=== PATIENT | male | born 1955 | race Caucasian/White ===

== ENCOUNTER 2017-02-09 07:45 | Emergency (ER) | payer MEDICAID ==
--- NOTE | 2017-02-09 08:05 | ERPHSYRPT ---
- History of Present Illness Time Seen by Provider: 02/09/17 08:00 Source: family Exam Limitations: other (metal retardation) Patient Subjective Stated Complaint: PT HERE FOR URINARY RETENTION, PT IS DISABLED A AND UNABLE TO SPEAK. SHE STATES HE NORMALLY VOIDS EVERY HOUR AND HAS NOT VOIDED SINCE LAST NIGHT Triage Nursing Assessment: PT ALERT, NONVERBAL,MOANS OUT LOAD,ABD SOFT, DIAPER DRY Physician History: The patient is a 61-year-old male who has recently been transferred to a local care facility complaining that he did not urinate all night. The patient is nonverbal and cannot communicate. He has severe intellectual disabilities and hydrocephalus with VACCINE SPECIALIST shunt. His caregiver is concerned that he has not produced urine into his diaper all night. Otherwise the patient is his normal self. He also has a past medical history of seizures and hypertension. Timing/Duration: today Activites at Onset: none Pain Radiation: none Severity of Pain-Max: none Severity of Pain-Current: none Modifying Factors: Improves With: nothing Associated Symptoms: other (urinary retention) Prior abdominal problems: none Sexual intercourse history: non-contributory Allergies/Adverse Reactions: amoxicillin [From Augmentin] Allergy (Verified 02/09/17 07:55) cefazedone Allergy (Verified 02/09/17 07:55) clavulanic acid [From Augmentin] Allergy (Verified 02/09/17 07:55) zinc oxide Allergy (Verified 02/09/17 07:55) Home Medications: Amlodipine Besylate 10 mg [Norvasc 10 MG] 10 mg DAILY 02/09/17 [History] Lisinopril 20 mg [Zestril 20 MG] 20 mg DAILY 02/09/17 [History] Phenobarbital 20 mg/5 ml [Phenobarbital 20 mg/5 ml Elixir] 15 ml DAILY [History] Valproic Acid 250 mg/5 ml [Depakene 250 MG/5 ML Syrup] 15 ml DAILY [History] Hx Influenza Vaccination/Date Given: Yes Hx Pneumococcal Vaccination/Date Given: Yes Immunizations Up to Date: Yes - Past Medical History Pertinent Past Medical History: Yes Neurological History: Seizures Cardiac History: Hypertension Other Medical History: SHUNT IN HEAD ,ANEMIA, CONSTIPATION - Past Surgical History Other Surgical History: G TUBE - Social History Smoking Status: Never smoker Exposure to second hand smoke: No Drug Use: none Patient Lives Alone: No - Review of Systems Constitutional: No Fever, No Chills Eyes: No Symptoms Ears, Nose, & Throat: No Symptoms Respiratory: No Cough, No Dyspnea Cardiac: No Chest Pain, No Edema, No Syncope Abdominal/Gastrointestinal: No Abdominal Pain, No Nausea, No Vomiting, No Diarrhea Genitourinary Symptoms: Urinary Retention Musculoskeletal: No Back Pain, No Neck Pain Skin: No Rash Neurological: No Dizziness, No Focal Weakness, No Sensory Changes Psychological: No Symptoms Endocrine: No Symptoms Hematologic/Lymphatic: No Symptoms Immunological/Allergic: No Symptoms All Other Systems: Reviewed and Negative - Nursing Vital Signs Nursing Vital Signs: Initial Vital Signs Temperature 97.0 F 02/09/17 07:47 Pulse Rate 83 02/09/17 07:47 Respiratory Rate 16 02/09/17 07:47 Blood Pressure 156/24 02/09/17 07:47 O2 Sat by Pulse Oximetry 94 L 02/09/17 07:47 - Physical Exam General Appearance: no apparent distress, alert Eye Exam: PERRL/EOMI Ears, Nose, Throat Exam: pharynx normal, moist mucous membranes Neck Exam: normal inspection, supple Respiratory Exam: normal breath sounds, lungs clear Cardiovascular Exam: regular rate/rhythm, No edema Rectal Exam: not done Back Exam: normal inspection, No CVA tenderness Extremity Exam: normal inspection, normal range of motion, No pedal edema Neurologic Exam: alert, oriented x 3, cooperative, sensation nml, No motor deficits Skin Exam: normal color, warm, dry, No rash SpO2 Interpretation: normal SpO2: 94 Oxygen Delivery: Room Air Ordered Tests: Active Orders 24 hr Category Date Time Status Catheter-[place] [facility] STAT Care 02/09/17 08:05 Active CULTURE,URINE Stat Lab 02/09/17 08:21 Received UA W/ MICROSCOPIC Stat Lab 02/09/17 08:21 Completed Lab/Rad Data: Laboratory Results 02/09/17 Range/Units 08:21 Ur Collection Type CATH Urine Color YELLOW (YELLOW) Urine Appearance CLEAR (CLEAR) Urine pH 7.0 (5-6) Ur Specific [place] 1.015 (1.005-1.025) Urine Protein NEGATIVE (Negative) Urine Ketones NEGATIVE (NEGATIVE) Urine Blood TRACE HEMOLYZED (0-5) Donis/ul Urine Nitrite NEGATIVE (NEGATIVE) Urine Bilirubin NEGATIVE (NEGATIVE) Urine Urobilinogen NORMAL (0-1) mg/dL Ur Leukocyte Esterase 1+ (NEGATIVE) Urine Microscopic RBC 2-5 (0-2) /HPF Urine Microscopic WBC 2-5 (0-5) /HPF Ur Epithelial Cells FEW (FEW) /HPF Urine Bacteria FEW (NEGATIVE) /HPF Urine Glucose NEGATIVE (NEGATIVE) mg/dL Specimen Received 02/09 0820 - Progress Progress: unchanged Counseled pt/family regarding: lab results, need for follow-up - Departure Time of Disposition: 09:12 Departure Disposition: Home Clinical Impression: UTI (urinary tract infection) Condition: Stable Critical Care Time: No Additional Instructions: You have a UTI. Take ciprofloxacin 500 mg 2 times a day for 5 days. Follow up in 2 to 3 days. Prescriptions: Ciprofloxacin [Cipro 500 MG] 1 tab PO BID #10 tablet
[2017-02-09 08:38] LABS: Collection Type CATH; Leukocyte Esterase 1+ (NEGATIVE)
[2017-02-09 08:39] LABS: Bacteria FEW /HPF (NEGATIVE); Bilirubin NEGATIVE (NEGATIVE); Blood TRACE HEMOLYZED Ery/ul (0-5); COMPLETE URINE MICROSCOPIC? YES; Epithelial Cells FEW /HPF (FEW); Glucose NEGATIVE (NEGATIVE)
[2017-02-09 08:40] LABS: ADD URINE CULTURE? YES (NO)
[2017-02-09 10:43] VITALS: BP 106/59; PULSE 61; O2SAT 92
== END 2017-02-09 10:50 | disposition home or self-care (01) ==
LOC: ED 07:45
DX: N39.0 Urinary tract infection, site not specified (principal); G91.8 Other hydrocephalus; F72 Severe intellectual disabilities; R56.9 Unspecified convulsions; I10 Essential (primary) hypertension; Z79.899 Other long term (current) drug therapy
CPT/HCPCS: 51702; 81000; 87086; 99283

== ENCOUNTER 2017-02-09 16:34 | Emergency (ER) | payer MEDICAID ==
[2017-02-09 16:45] VITALS: O2SAT 97
--- NOTE | 2017-02-09 17:27 | ERPHSYRPT ---
- History of Present Illness Time Seen by Provider: 02/09/17 17:22 Source: other Exam Limitations: other (mental retardation) Patient Subjective Stated Complaint: pt pulled fc out today that was put in earlier today in this er for uti. staff states that they want to but back in , pt has voided since having fc out Triage Nursing Assessment: pt alert, nonverbal,resp easy,pt has small amt of blood at tip of penis Physician History: The patient is a nonverbal mentally challenged patient from a local care facility by ambulance where earlier today he pulled out the Oleary catheter that we place in this ER this morning. This morning he had delayed urination in his diaper. We did a catheter urine sample and left the Oleary catheter in to monitor progress of the antibiotics for a mild UTI. The patient pulled the Oleary catheter out about 5 hours ago. The health director career services called the home office and was told to bring the patient back in for another Oleary catheter placement. Patient has a past medical history of severe mental retardation and seizure disorder. He has a TRACK LAYER HEAD shunt. Timing/Duration: today, hour(s) (5) Severity: mild Modifying Factors: Improves With: nothing Associated Symptoms: denies symptoms Allergies/Adverse Reactions: amoxicillin [From Augmentin] Allergy (Verified 02/09/17 07:55) cefazedone Allergy (Verified 02/09/17 07:55) clavulanic acid [From Augmentin] Allergy (Verified 02/09/17 07:55) zinc oxide Allergy (Verified 02/09/17 07:55) Home Medications: Amlodipine Besylate 10 mg [Norvasc 10 MG] 10 mg DAILY 02/09/17 [History] Lisinopril 20 mg [Zestril 20 MG] 20 mg DAILY 02/09/17 [History] Phenobarbital 20 mg/5 ml [Phenobarbital 20 mg/5 ml Elixir] 15 ml DAILY [History] Valproic Acid 250 mg/5 ml [Depakene 250 MG/5 ML Syrup] 15 ml DAILY [History] Hx Tetanus, Diphtheria Vaccination/Date Given: Yes Hx Influenza Vaccination/Date Given: Yes Hx Pneumococcal Vaccination/Date Given: Yes Immunizations Up to Date: Yes - Review of Systems Constitutional: No Fever, No Chills Eyes: No Symptoms Ears, Nose, & Throat: No Symptoms Respiratory: No Cough, No Dyspnea Cardiac: No Chest Pain, No Edema, No Syncope Abdominal/Gastrointestinal: No Abdominal Pain, No Nausea, No Vomiting, No Diarrhea Genitourinary Symptoms: Other (pulled out oleary catheter) Musculoskeletal: No Back Pain, No Neck Pain Skin: No Rash Neurological: No Dizziness, No Focal Weakness, No Sensory Changes Psychological: No Symptoms Endocrine: No Symptoms Hematologic/Lymphatic: No Symptoms Immunological/Allergic: No Symptoms All Other Systems: Reviewed and Negative - Past Medical History Pertinent Past Medical History: Yes Neurological History: Seizures Cardiac History: Hypertension Other Medical History: SHUNT IN HEAD ,ANEMIA, CONSTIPATION - Past Surgical History Other Surgical History: G TUBE - Social History Smoking Status: Never smoker Exposure to second hand smoke: No Drug Use: none Patient Lives Alone: No - Nursing Vital Signs Nursing Vital Signs: Initial Vital Signs Temperature 98.2 F 02/09/17 16:40 Pulse Rate 87 02/09/17 16:40 Respiratory Rate 18 02/09/17 16:40 O2 Sat by Pulse Oximetry 97 02/09/17 16:40 - Physical Exam General Appearance: no apparent distress, alert Eye Exam: PERRL/EOMI, eyes nml inspection Ears, Nose, Throat Exam: normal ENT inspection, TMs normal, pharynx normal, moist mucous membranes Neck Exam: normal inspection, non-tender, supple, full range of motion Respiratory Exam: normal breath sounds, lungs clear, No respiratory distress Cardiovascular Exam: regular rate/rhythm, normal heart sounds, normal peripheral pulses Gastrointestinal/Abdomen Exam: soft, normal bowel sounds, No tenderness, No mass Male Genitalia Exam: normal genitalia, other (Examination of the genital region shows pink tinged urine in his diaper. There is a small amount of blood at the meatus. No clots are seen. The patient is urinating.) Rectal Exam: not done Back Exam: normal inspection, normal range of motion, No CVA tenderness, No vertebral tenderness Extremity Exam: normal inspection, normal range of motion, pelvis stable Neurologic Exam: alert, oriented x 3, cooperative, normal mood/affect, nml cerebellar function, nml station & gait, sensation nml, No motor deficits Skin Exam: normal color, warm, dry, No rash Lymphatic Exam: No adenopathy SpO2 Interpretation: normal SpO2: 97 Oxygen Delivery: Room Air - Departure Time of Disposition: 17:33 Departure Disposition: Home Clinical Impression: Hematuria Condition: Stable Critical Care Time: No Referrals: Provider,Unknown [Primary Care Provider] - Additional Instructions: You have mild bleeding during urination because you pulled out the Oleary catheter. You are urinating. It is not necessary to replace the Oleary catheter because it was only placed to ease in the collection of urine specimens to monitor the mild UTI that you have. Continue with the ciprofloxacin for 5 days as previously directed. Follow-up as needed.
[2017-02-09 17:41] VITALS: BP 136/70; PULSE 78
== END 2017-02-09 18:22 | disposition home or self-care (01) ==
LOC: ED 16:34
DX: Z46.6 Encounter for fitting and adjustment of urinary device (principal)
CPT/HCPCS: 99281

== ENCOUNTER 2017-05-14 22:09 | Emergency (ER) | payer MEDICARE ==
--- NOTE | 2017-05-14 22:46 | ERPHSYRPT ---
- History of Present Illness Time Seen by Provider: 05/14/17 22:27 Source: family, [facility] records Exam Limitations: clinical condition Patient Subjective Stated Complaint: UNAVBLE TO VERBILIZE. CAREGIVER STATES THAT THE CARE GIVERS NOTED HER HAD NO WET DEPENDS SINCE 1400 TODAY. Triage Nursing Assessment: AWAKE NON VERBAL WITH CAREFGIVER AT BEDSIDE SHE SHATES HE HAS NOT VOIDED SINCE 1400 TODAY.. ABDOMEN FIRM TO PALPATION.. + BS x4. DEPENDS DRY ON ARRIVAL. Physician History: 61 y/o male who is mentally challenged brought in by roof slater for not urinating for the past 8 hrs. Pt has a history of UTIs and has had similar symptoms in the past. In the ER, patient has voided a lot prior to being cath. Pt is not in any distress but has been having a low grade fever over the last few days. Pt is not vomiting and tolerating feeds via G tube. Pt had a temp of 97.8. Timing/Duration: today Activites at Onset: none Associated Symptoms: fever Allergies/Adverse Reactions: amoxicillin [From Augmentin] Allergy (Verified 05/14/17 22:29) cefazedone Allergy (Verified 05/14/17 22:29) clavulanic acid [From Augmentin] Allergy (Verified 05/14/17 22:29) zinc oxide Allergy (Verified 05/14/17 22:29) Home Medications: Amlodipine Besylate 10 mg [Norvasc 10 MG] 10 mg DAILY 02/09/17 [History] Lisinopril 20 mg [Zestril 20 MG] 20 mg DAILY 02/09/17 [History] Phenobarbital 20 mg/5 ml [Phenobarbital 20 mg/5 ml Elixir] 15 ml DAILY [History] Valproic Acid 250 mg/5 ml [Depakene 250 MG/5 ML Syrup] 15 ml DAILY [History] Hx Tetanus, Diphtheria Vaccination/Date Given: Yes Hx Influenza Vaccination/Date Given: Yes Hx Pneumococcal Vaccination/Date Given: Yes Immunizations Up to Date: Yes - Past Medical History Pertinent Past Medical History: Yes Neurological History: Seizures ENT History: No Pertinent History Cardiac History: Hypertension Respiratory History: No Pertinent History Endocrine Medical History: No Pertinent History History: Other Other Medical History: HYDROCEPHALUS, ANEMIA, htn,GLAUCOMA, BRONCHITIS - Past Surgical History Past Surgical History: Yes Other Surgical History: SHUNT TO HEAD - Social History Smoking Status: Never smoker Exposure to second hand smoke: No Drug Use: none Patient Lives Alone: No - Review of Systems Constitutional: No Fever, No Chills Eyes: No Symptoms Ears, Nose, & Throat: No Symptoms Respiratory: No Cough, No Dyspnea Cardiac: No Chest Pain, No Edema, No Syncope Abdominal/Gastrointestinal: No Abdominal Pain, No Nausea, No Vomiting, No Diarrhea Genitourinary Symptoms: Urinary Retention, No Dysuria Musculoskeletal: No Back Pain, No Neck Pain Skin: No Rash Neurological: No Dizziness, No Focal Weakness, No Sensory Changes Psychological: No Symptoms Endocrine: No Symptoms All Other Systems: Reviewed and Negative - Nursing Vital Signs Nursing Vital Signs: Initial Vital Signs Temperature 97.6 F 05/14/17 22:14 Pulse Rate 90 05/14/17 22:14 Respiratory Rate 20 05/14/17 22:14 Blood Pressure 90/61 05/14/17 22:14 O2 Sat by Pulse Oximetry 95 05/14/17 22:14 - Physical Exam General Appearance: no apparent distress, alert Eye Exam: PERRL/EOMI Ears, Nose, Throat Exam: pharynx normal, moist mucous membranes Neck Exam: normal inspection, supple Respiratory Exam: normal breath sounds, lungs clear Cardiovascular Exam: regular rate/rhythm, normal heart sounds, No edema Gastrointestinal/Abdomen Exam: soft, normal bowel sounds, No tenderness Back Exam: normal inspection, normal range of motion, No CVA tenderness Extremity Exam: normal inspection, normal range of motion, No pedal edema Neurologic Exam: alert, oriented x 3, cooperative, sensation nml, No motor deficits Skin Exam: normal color, warm, dry, No rash SpO2: 95 Oxygen Delivery: Room Air - Course Nursing assessment & vital signs reviewed: Yes Ordered Tests: Active Orders 24 hr Category Date Time Status Cath for Specimen-Straight STAT Care 05/14/17 22:31 Active UA W/ MICROSCOPIC Stat Lab 05/14/17 22:45 Completed Lab/Rad Data: Laboratory Results 05/14/17 Range/Units 22:45 Ur Collection Type CCMS Urine Color YELLOW (YELLOW) Urine Appearance CLEAR (CLEAR) Urine pH 7.0 (5-6) Ur Specific [place] 1.010 (1.005-1.025) Urine Protein NEGATIVE (Negative) Urine Ketones NEGATIVE (NEGATIVE) Urine Blood NEGATIVE (0-5) Donis/ul Urine Nitrite NEGATIVE (NEGATIVE) Urine Bilirubin NEGATIVE (NEGATIVE) Urine Urobilinogen NORMAL (0-1) mg/dL Ur Leukocyte Esterase TRACE (NEGATIVE) Urine Microscopic RBC 0-2 (0-2) /HPF Urine Microscopic WBC 0-2 (0-5) /HPF Ur Epithelial Cells RARE (FEW) /HPF Urine Culture Reflexed NO (NO) Urine Glucose NEGATIVE (NEGATIVE) mg/dL Specimen Received 05-14-17 2300 - Progress Progress: improved Progress Note: 05/14/17 23:48 Pt voided a large amount of urine in his diapers and feels better. The cath specimen does not show any UTI and the patient does not have fever. I have advised the roof slater to bring the patient back to the ER with worsening urinary symptoms. - Departure Time of Disposition: 23:50 Departure Disposition: Home Clinical Impression: Urinary retention Condition: Stable Critical Care Time: No Referrals: Provider,Unknown [Primary Care Provider] - Instructions: Urinary Retention in Men Additional Instructions: Bring the patient back to the ER if he should have urinary retention, burning with urination, blood in the urine, nausea, vomiting, fever or chills
[2017-05-14 23:06] LABS: Bilirubin NEGATIVE (NEGATIVE); Blood NEGATIVE Ery/ul (0-5); COMPLETE URINE MICROSCOPIC? YES; Collection Type CCMS; Glucose NEGATIVE (NEGATIVE); Leukocyte Esterase TRACE (NEGATIVE)
[2017-05-14 23:07] LABS: ADD URINE CULTURE? NO (NO); Epithelial Cells RARE /HPF (FEW); WBC 0-2 /HPF (0-5)
[2017-05-15 00:49] VITALS: BP 135/88; PULSE 78; O2SAT 97
== END 2017-05-15 01:15 | disposition home or self-care (01) ==
LOC: ED 22:09
DX: R33.9 Retention of urine, unspecified (principal); Z79.899 Other long term (current) drug therapy
CPT/HCPCS: 99283; 81000; P9612

== ENCOUNTER 2017-06-18 08:05 | Day surgery (SDC) | payer MEDICARE ==
[~2017-06-18 08:05] MED LIST: DEMEROL 50 MG IV ONE; VERSED 5 MG/5 ML IV ONE
[2017-06-18] MEDS ORDERED: Sodium Chloride 0.9% 1000 ML 1,000 ML IV SCH (08:30)
--- NOTE | 2017-06-18 08:41 | HP ---
DATE OF SURGERY: 06/18/2017 ADMISSION DIAGNOSIS: Mechanically exhausted PEG tube. ANTICIPATED PROCEDURE: Requiring new PEG placement. HISTORY OF PRESENT ILLNESS: PAST MEDICAL HISTORY: ALLERGIES: PER THE CHART. MEDICATIONS: Per the chart. PAST SURGICAL HISTORY: None recent. SOCIAL HISTORY: Negative. FAMILY HISTORY: Negative. REVIEW OF SYSTEMS: Negative. PHYSICAL EXAMINATION: VITAL SIGNS: Normal. CHEST: Clear. COR: Regular. IMPRESSION: Exhausted PEG tube. PLAN: PEG tube replacement.
[2017-06-18] MEDS ORDERED: KEFZOL 1 GM ONE (10:26)
[2017-06-18] MEDS ORDERED: Cleocin Phosphate IV 600 MG/4 ML ONE (10:30)
[2017-06-18 12:30] VITALS: BP 112/77; PULSE 79; O2SAT 95
--- NOTE | 2017-06-18 12:44 | OP ---
SURGERY DATE/TIME: 06/18/2017 1020 PREOPERATIVE DIAGNOSIS: Mechanically exhausted G-tube. POSTOPERATIVE DIAGNOSIS: Mechanically exhausted G-tube. PROCEDURE: Endoscopic PEG tube replacement with removal of the old tube. SURGEON: Basil Franklin M.D. ANESTHESIA: IV sedation 15 minutes monitored. COMPLICATIONS: None. CONDITION: Stable. INDICATION: A patient requiring PEG tube change. He is continuing to require his PEG tube. He has a totally mechanically exhausted PEG tube. DESCRIPTION OF PROCEDURE: He is taken to endoscopy. Dorsal position. The scope introduced. The old tube was removed. The new tube was pulled through. It was seated at 3 cm. The patient tolerated the procedure well. Oximetry kept over 90%. Comfort level was satisfactory.
== END 2017-06-18 16:56 ==
LOC: SDC 08:05
PROVIDERS: ATTEND Surgery
PROC: 0D20XUZ Change Feeding Device in Upper Intestinal Tract, External Approach (ICD-10-PCS; principal; 2017-06-18)
DX: K94.23 Gastrostomy malfunction (principal)
CPT/HCPCS: J0690; J2175; J2250

== ENCOUNTER 2017-09-28 08:45 | Emergency (ER) | payer MEDICARE ==
--- NOTE | 2017-09-28 09:04 | ERPHSYRPT ---
- History of Present Illness Time Seen by Provider: 09/28/17 08:47 Source: EMS, other (caregiver) Patient Subjective Stated Complaint: pt here for a g tube that has a missing peice Triage Nursing Assessment: pt has g tube to left side of abd, it has a missing peice and torn rubber. no drainage Physician History: CC: gtube broken Hx: 61 y/o patient of Dr Franklin scheduled for colonoscopy later this week. His caregiver noted an external break in the outer G tube this AM. She kept it clamped. It was changed in May per Dr Franklin. No other complaints. Allergies/Adverse Reactions: amoxicillin [From Augmentin] Allergy (Unknown, Verified 09/28/17 08:51) unknown cefazedone Allergy (Unknown, Verified 09/28/17 08:51) unknown clavulanic acid [From Augmentin] Allergy (Unknown, Verified 09/28/17 08:51) unknown codeine Allergy (Unknown, Verified 09/28/17 08:51) unknown Sulfa (Sulfonamide Antibiotics) Allergy (Unknown, Verified 09/28/17 08:51) unknown zinc oxide Allergy (Unknown, Verified 09/28/17 08:51) unknown cefepime Adverse Reaction (Unknown, Verified 09/28/17 08:51) Rash Penicillins Adverse Reaction (Unknown, Verified 09/28/17 08:51) unknown Home Medications: Lisinopril 20 mg [Zestril 20 MG] 20 mg DAILY 02/09/17 [History] Phenobarbital 20 mg/5 ml [Phenobarbital 20 mg/5 ml Elixir] 15 ml DAILY [History] Valproic Acid 250 mg/5 ml [Depakene 250 MG/5 ML Syrup] 15 ml BID 02/09/17 [History] Travoprost (Benzalkonium) [Travatan 0.004% Eye Drop] 5 ml OP DAILY 06/10/17 [ History] Carbamide Peroxide [Debrox] 15 ml OT DIRECTIONS UNKNOWN 09/23/17 [History] Amlodipine Besylate 10 mg [Norvasc 10 MG] 10 mg DAILY 09/28/17 [History] Hx Tetanus, Diphtheria Vaccination/Date Given: Yes Hx Influenza Vaccination/Date Given: Yes Hx Pneumococcal Vaccination/Date Given: Yes Immunizations Up to Date: Yes - Review of Systems Constitutional: No Fever All Other Systems: Unable due to condition (pt nonverbal) - Past Medical History Pertinent Past Medical History: Yes Neurological History: Seizures ENT History: Glaucoma Cardiac History: Hypertension Respiratory History: Pneumonia Endocrine Medical History: No Pertinent History Musculoskeletal History: Other GI Medical History: Other History: Other Psycho-Social History: No Pertinent History Male Reproductive Disorders: Other Other Medical History: HYDROCEPHALUS, ANEMIA, htn,GLAUCOMA, BRONCHITIS, incontinence , wheelchair, feeding tube, urinary retention. - Past Surgical History Past Surgical History: Yes Neuro Surgical History: Brain Shunt Cardiac: No Pertinent History Respiratory: No Pertinent History Gastrointestinal: No Pertinent History Genitourinary: No Pertinent History Musculoskeletal: Other Male Surgical History: No Pertinent History Other Surgical History: SHUNT TO HEAD, peg feeding tube placed and replaced - Social History Smoking Status: Never smoker Exposure to second hand smoke: No Drug Use: none Patient Lives Alone: No - Nursing Vital Signs Nursing Vital Signs: Initial Vital Signs Temperature 97.0 F 09/28/17 08:45 Pulse Rate 79 09/28/17 08:45 Respiratory Rate 16 09/28/17 08:45 Blood Pressure 138/82 09/28/17 08:45 O2 Sat by Pulse Oximetry 93 L 09/28/17 08:45 Pain Scale Pain Intensity 0 - Physical Exam General Appearance: alert Eye Exam: PERRL/EOMI Ears, Nose, Throat Exam: moist mucous membranes Respiratory Exam: normal breath sounds Cardiovascular Exam: regular rate/rhythm Gastrointestinal/Abdomen Exam: soft, No tenderness, No distention Neurologic Exam: alert Skin Exam: warm, dry SpO2 Interpretation: normal SpO2: 93 Oxygen Delivery: Room Air Procedures - Additional Procedures Additional Procedures: gastric tube replacement Progress: Old bumper G tube removed intact with traction. Mild bleeding at the skin edge. New 20 Fr G tube replaced, 20ml water placed in balloon, backed to 4cm. Tolerated well. Flushes easily with return of stomach contents. - Course Nursing assessment & vital signs reviewed: Yes - Progress Progress Note: 09/28/17 09:04 Old chart reviewed. 09/28/17 09:[address] Franklin office. - Departure Time of Disposition: 09:52 Departure Disposition: Home Clinical Impression: broken G tube Condition: Stable Critical Care Time: No Referrals: NATE FRANKLIN [ACTIVE STAFF] - Instructions: Gastrostomy, Permanent and Temporary (DC) Additional Instructions: Normal care.
[2017-09-28 10:53] VITALS: BP 134/76; PULSE 72; O2SAT 97
== END 2017-09-28 10:54 | disposition home or self-care (01) ==
LOC: ED 08:45
PROC: 0D20XUZ Change Feeding Device in Upper Intestinal Tract, External Approach (ICD-10-PCS; principal; 2017-09-28)
DX: T85.518A Breakdown (mechanical) of other gastrointestinal prosthetic devices, implants and grafts, initial encounter (principal); Z79.899 Other long term (current) drug therapy
CPT/HCPCS: 43760; 99283; 99284

== ENCOUNTER 2017-10-01 06:00 | Day surgery (SDC) | payer MEDICARE ==
[2017-10-01] MEDS ORDERED: DIPRIVAN 200 MG/20 ML IV ONE (06:01)
[2017-10-01] MEDS ORDERED: Ketamine HCl 50 MG/ML IV ONE (06:01)
[2017-10-01] MEDS ORDERED: Lactated Ringers 1,000 ML IV SCH (06:30)
--- NOTE | 2017-10-01 08:09 | HP ---
DATE OF SURGERY: 10/01/2017 ADMISSION DIAGNOSIS: CT scan showing possible spot on the colon requiring colonoscopy. ANTICIPATED PROCEDURE: Colonoscopy. HISTORY OF PRESENT ILLNESS: Degraded study due to the patient's condition, massive fecal impaction from the anal-rectal region to the level of a markedly redundant sigmoid lies right of midline more proximal bowel is not dilated. There is a suggestion of sigmoid colon circumferential mucosal thickening proximal to area of impaction. It could be benign or malignant. The patient presents for colonoscopy. PAST MEDICAL HISTORY: ALLERGIES: PER CHART. MEDICATIONS: Per chart. PAST SURGICAL HISTORY: None recent. SOCIAL HISTORY: Negative. FAMILY HISTORY: Negative. REVIEW OF SYSTEMS: The patient had a previous broken G-tube. PHYSICAL EXAMINATION: The patient of stated age and condition. CHEST: Clear. COR: Regular. ABDOMEN: Moderate distention. IMPRESSION: Possible lesion per CT scan of the colon. PLAN: Colonoscopy.
[2017-10-01 10:44] VITALS: BP 121/72; PULSE 86; O2SAT 94
--- NOTE | 2017-10-02 07:39 | OP ---
SURGERY DATE/TIME: 10/01/2017822 PREOPERATIVE DIAGNOSIS: Possible sigmoid obstruction. POSTOPERATIVE DIAGNOSIS: No sigmoid obstruction. Examination satisfactory to splenic flexure but it was limited at splenic flexure secondary to angulation. PROCEDURE: Colonoscopy limited to splenic flexure. SURGEON: Basil Franklin M.D. BOWEL PREP: 12/05. Barium enema has been ordered for completion. ANESTHESIA: MAC. COMPLICATIONS: None. CONDITION: Stable. INDICATION: The patient is mentally challenged, markedly debilitated. He has obstipation and constipation. CT scan suggesting that he might have a sigmoid obstruction. DESCRIPTION OF PROCEDURE: He was taken to endoscopy. There was some stool in the rectum but up above the rectum from rectosigmoid is basically clear. The scope advanced up to the splenic flexure but it cannot be taken out of the splenic. I believe this was clearly passed here on the CT scan but we will order barium enema to evaluate the rest of the colon.
== END 2017-10-01 11:05 | disposition home health service (06) ==
LOC: SDC 06:00
PROVIDERS: ATTEND Surgery
PROC: 0DJD8ZZ Inspection of Lower Intestinal Tract, Via Natural or Artificial Opening Endoscopic (ICD-10-PCS; principal; 2017-10-01)
DX: K56.609 Unspecified intestinal obstruction, unspecified as to partial versus complete obstruction (principal); K63.9 Disease of intestine, unspecified; K56.41 Fecal impaction; K59.00 Constipation, unspecified
CPT/HCPCS: J2704

== ENCOUNTER 2018-02-03 10:53 | Emergency (ER) | payer MEDICARE ==
--- NOTE | 2018-02-03 11:11 | ERPHSYRPT ---
- History of Present Illness Time Seen by Provider: 02/03/18 10:56 Source: patient, EMS, halfway records, other (care coordination manager) Exam Limitations: no limitations Physician History: [facility] by EMS for history of cough; no fever; occassionally productive; sats on RA good at 98%; he is handicapped and non-verbl; care coordination manager here; taking feedings as normal; BMs and voiding as per usual; nothing new with patient; no exposures; no travel; no change i meds Timing/Duration: week(s) (2-3), intermittent, gradual onset, other (persistant) Cough Quality/Degree: mild, productive cough (occassionally) Possible Cause: occasional episodes Modifying Factors: Improves With: nothing Associated Symptoms: denies symptoms Allergies/Adverse Reactions: amoxicillin [From Augmentin] Allergy (Unknown, Verified 10/01/17 06:44) unknown cefazedone Allergy (Unknown, Verified 10/01/17 06:44) unknown clavulanic acid [From Augmentin] Allergy (Unknown, Verified 10/01/17 06:44) unknown codeine Allergy (Unknown, Verified 10/01/17 06:44) unknown Sulfa (Sulfonamide Antibiotics) Allergy (Unknown, Verified 10/01/17 06:44) unknown zinc oxide Allergy (Unknown, Verified 10/01/17 06:44) unknown cefepime Adverse Reaction (Unknown, Verified 10/01/17 06:44) Rash Penicillins Adverse Reaction (Unknown, Verified 10/01/17 06:44) unknown Home Medications: Lisinopril 20 mg [Zestril 20 MG] 20 mg PEG DAILY 02/09/17 [History] Phenobarbital 20 mg/5 ml [Phenobarbital 20 mg/5 ml Elixir] 15 ml PEG DAILY 02/09/17 [History] Valproic Acid 250 mg/5 ml [Depakene 250 MG/5 ML Syrup] 15 ml PEG BID 02/09 [History] Travoprost (Benzalkonium) [Travatan 0.004% Eye Drop] 5 ml OP DAILY 06/10/17 [ History] Carbamide Peroxide [Debrox] 15 ml OT DIRECTIONS UNKNOWN 09/23/17 [History] Amlodipine Besylate 10 mg [Norvasc 10 MG] 10 mg PEG DAILY 09/28/17 [History] Hx Tetanus, Diphtheria Vaccination/Date Given: Yes Hx Influenza Vaccination/Date Given: Yes Hx Pneumococcal Vaccination/Date Given: Yes - Review of Systems Constitutional: No Symptoms Eyes: No Symptoms Ears, Nose, & Throat: No Symptoms Respiratory: Cough, No Cyanosis, No Dyspnea, No Wheezing Cardiac: No Chest Pain, No Palpitations, No Syncope Abdominal/Gastrointestinal: No Abdominal Pain, No Nausea, No Vomiting, No Diarrhea Genitourinary Symptoms: No Symptoms Musculoskeletal: No Symptoms Skin: No Symptoms Neurological: No Symptoms Psychological: No Symptoms Endocrine: No Symptoms Hematologic/Lymphatic: No Symptoms Immunological/Allergic: No Symptoms - Past Medical History Pertinent Past Medical History: Yes Neurological History: Seizures ENT History: Glaucoma Cardiac History: Hypertension Respiratory History: Pneumonia Endocrine Medical History: No Pertinent History Musculoskeletal History: Other GI Medical History: Other History: Other Psycho-Social History: No Pertinent History Male Reproductive Disorders: Other Other Medical History: HYDROCEPHALUS, ANEMIA, htn,GLAUCOMA, BRONCHITIS, incontinence , wheelchair, feeding tube, urinary retention. - Past Surgical History Past Surgical History: Yes Neuro Surgical History: Brain Shunt Cardiac: No Pertinent History Respiratory: No Pertinent History Gastrointestinal: No Pertinent History Genitourinary: No Pertinent History Musculoskeletal: Other Male Surgical History: No Pertinent History Other Surgical History: SHUNT TO HEAD, peg feeding tube placed and replaced - Social History Smoking Status: Never smoker Exposure to second hand smoke: No Alcohol Use: None Drug Use: none Patient Lives Alone: No Significant Family History: no pertinent family hx - Female History Hx Now: No - Nursing Vital Signs Nursing Vital Signs: Initial Vital Signs Temperature 98.5 F 02/03/18 10:54 Pulse Rate 94 H 02/03/18 10:54 Respiratory Rate 18 02/03/18 10:54 Blood Pressure 133/97 02/03/18 10:54 O2 Sat by Pulse Oximetry 97 02/03/18 10:54 Pain Scale Pain Intensity 0 - Physical Exam General Appearance: mild distress, alert, other (restless; non-verbal) Eye Exam: PERRL/EOMI, No photophobia Ears, Nose, Throat Exam: normal ENT inspection, TMs normal, pharynx normal, moist mucous membranes Neck Exam: normal inspection, non-tender, supple, full range of motion, No meningismus, No JVD Respiratory Exam: normal breath sounds, lungs clear, airway intact, other ( coarse scattered bronhovesicular BS diffuse), No chest tenderness, No respiratory distress, No pleural rub Cardiovascular Exam: regular rate/rhythm, normal heart sounds, normal peripheral pulses, capillary refill <2 sec, No murmur Gastrointestinal/Abdomen Exam: soft, normal bowel sounds, No tenderness, No guarding, No pulsatile mass, No organomegaly Rectal Exam: deferred Extremity Exam: normal inspection ( for this patientdue to chronic problems), normal range of motion Neurologic Exam: alert, cooperative, spectacle truer II-XII nml as tested, normal mood/ affect, other (tremor upper extremities L>R), No oriented x 3 (non-verbal) Skin Exam: normal color, warm, dry, No rash, No petechiae, No cyanosis Lymphatic Exam: No adenopathy SpO2 Interpretation: normal SpO2: 98 Oxygen Delivery: Room Air - Course Nursing assessment & vital signs reviewed: Yes - Radiology Exams Chest X-ray Interpretation: Reviewed by me, Teleradiologist Report, Nml Heart Size, Other (right supra hilar infiltrate vs atelectasis) Ordered Tests: Active Orders 24 hr Category Date Time Status Pulse Oximetry (ED) STAT Care 02/03/18 11:02 Active CHEST 1 VIEW (PORTABLE) Stat Exams 02/03/18 11:03 Completed CBC W DIFF Stat Lab 02/03/18 11:20 Completed Lab/Rad Data: Laboratory Result Diagrams 02/03/18 11:20 Laboratory Results 02/03/18 Range/Units 11:20 WBC 5.4 (4.0-10.5) K/mm3 RBC 4.14 (4.1-5.6) M/mm3 Hgb 14.6 (12.5-18.0) gm/dl Hct 41.8 L (42-50) % MCV 101.0 H (78-100) fl MCH 35.3 H (26-32) pg MCHC 34.9 (32-36) g/dl RDW 12.4 (11.5-14.0) % Plt Count 189 (150-450) K/mm3 MPV 10.5 H (6-9.5) fl Gran % 59.4 (36.0-66.0) % Eos # (Auto) 0.11 (0-0.5) Absolute Lymphs (auto) 1.43 (1.0-4.6) Absolute Monos (auto) 0.64 (0.0-1.3) Lymphocytes % 26.5 (24.0-44.0) % Monocytes % 11.9 (0.0-12.0) % Eosinophils % 2.0 (0.00-5.0) % Basophils % 0.2 (0.0-0.4) % Absolute Granulocytes 3.20 (1.4-6.9) Basophils # 0.01 (0-0.4) reviewed - Progress Progress: re-examined (after xr and labs) Air Movement: good Progress Note: 02/03/18 11:16 care coordination manager at bedside; cxr and lab pending; will monitor and recheck 02/03/18 11:50 rechecked; care coordination manager at bedside; VS and sats good; CXR reviewed; lab pending; will monitor and recheck 02/03/18 12:10 cbc ok; will discuss findings with patient and care coordination manager; instructions given; questions answered Blood Culture(s) Obtained: No Antibiotics given: No Counseled pt/family regarding: lab results, diagnosis, need for follow-up, rad results - Departure Time of Disposition: 12:13 Departure Disposition: Extended Care Facility Clinical Impression: Acute bronchitis Condition: Stable Critical Care Time: No Referrals: CINDY HAMILTON MD [NON-STAFF PHY W/O PRIVILEGES] - Instructions: Cough, Adult (DC) Additional Instructions: continue home meds and instructions Follow-up with family doctor as directed. Call for appointment. Return if any problems. If you smoke please stop. Call or follow up with your family doctor for assistance if you need it to stop. Please wear your seatbelt when driving. Have a nice day. Thank you for allowing us to participate in your care today. :o) Dr Tal Ann Prescriptions: Azithromycin 200 mg/5 ml [Zithromax 200MG/5 ML LIQUID] 200 mg PO DAILY # 30 ml
--- NOTE | 2018-02-03 11:34 | XRAY ---
Indication: Cough. Comparison: None Portable apical lordotic chest underinflated with right suprahilar infiltrate versus atelectasis. Remaining lungs clear. Heart is prominent presumed from underinflation. There is right neck tubing. Bony thorax intact with mild osteopenia, degenerative changes, and mild dextroscoliosis. Impression: Underinflated lungs with right suprahilar infiltrate/atelectasis. Correlate clinically.
[2018-02-03 11:38] LABS: BASOPHIL % 0.2 % (0.0-0.4); Basophil (Absolute #) 0.01 (0-0.4); Eosinophil (Absolute #) 0.11 (0-0.5); Granulocytes % 59.4 % (36.0-66.0); Hematocrit 41.8 % (42-50); Hemoglobin 14.6 gm/dl (12.5-18.0); Lymphocyte (Absolute #) 1.43 (1.0-4.6); Lymphocytes % 26.5 % (24.0-44.0); Mean Corpuscular Hemoglobin 35.3 pg (26-32); Mean Corpuscular Hgb Concent. 34.9 g/dl (32-36); Mean Platelet Volume 10.5 fl (6-9.5); Monocyte (Absolute #) 0.64 (0.0-1.3); Monocytes % 11.9 % (0.0-12.0); Platelet Count 189 K/mm3 (150-450); Red Blood Count 4.14 M/mm3 (4.1-5.6); Red Cell Distribution Width 12.4 % (11.5-14.0); White Blood Count 5.4 K/mm3 (4.0-10.5)
[2018-02-03 11:51] VITALS: O2SAT 98
[2018-02-03 13:11] VITALS: PULSE 88
[2018-02-03 15:02] VITALS: BP 144/90
== END 2018-02-03 15:38 | disposition home or self-care (01) ==
LOC: ED 10:53
DX: J20.9 Acute bronchitis, unspecified (principal); Z79.899 Other long term (current) drug therapy
CPT/HCPCS: 36415; 71045; 85025; 99284

== ENCOUNTER 2018-05-26 06:45 | Emergency (ER) | payer MEDICARE ==
--- NOTE | 2018-05-26 07:16 | ERPHSYRPT ---
- History of Present Illness Time Seen by Provider: 05/26/18 07:00 Source: other (caregiver at intermediate) Exam Limitations: language barrier, physical impairment Patient Subjective Stated Complaint: per ems, pts caregiver stated that pt was having difficulty breathing. Triage Nursing Assessment: pt awake and alert, nonverbal. respirations nonlabored. lungs cta. peg tube noted to abd with binder over. skin pink warm and dry. Physician History: 62 y/o white male who is mentally challenged resident of a intermediate, presents with soa. 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 pt then received a nebulizer tx approx 15 to 20 minutes later. pt had another episode so medical control recommended pt to be transported to ED. pt has h/o frequent bouts of recurrent pneumonia. pt arrives in no sig distress but with low grade fever. pt is nonverbal. Timing/Duration: today, hour(s) (1), improved Activities at Onset: none Severity of Dyspnea-Max: mild Severity of Dyspnea-Current: none Possible Cause: frequent episodes Modifying Factors: Improves With: albuterol nebulizer (improved) Associated Symptoms: intermittent, No chest pain/discomfort, No wheezing, No hemoptysis, No painful breathing, No productive cough Allergies/Adverse Reactions: amoxicillin [From Augmentin] Allergy (Unknown, Verified 05/26/18 07:10) unknown cefazedone Allergy (Unknown, Verified 05/26/18 07:10) unknown clavulanic acid [From Augmentin] Allergy (Unknown, Verified 05/26/18 07:10) unknown codeine Allergy (Unknown, Verified 05/26/18 07:10) unknown Sulfa (Sulfonamide Antibiotics) Allergy (Unknown, Verified 05/26/18 07:10) unknown zinc oxide Allergy (Unknown, Verified 05/26/18 07:10) unknown cefepime Adverse Reaction (Unknown, Verified 05/26/18 07:10) Rash Penicillins Adverse Reaction (Unknown, Verified 05/26/18 07:10) unknown Home Medications: Lisinopril 20 mg [Zestril 20 MG] 20 mg PEG DAILY 02/09/17 [History] Phenobarbital 20 mg/5 ml [Phenobarbital 20 mg/5 ml Elixir] 15 ml PEG DAILY 02/09/17 [History] Valproic Acid 250 mg/5 ml [Depakene 250 MG/5 ML Syrup] 15 ml PEG BID 02/09 [History] Travoprost (Benzalkonium) [Travatan 0.004% Eye Drop] 5 ml OP DAILY 06/10/17 [ History] Carbamide Peroxide [Debrox] 15 ml OT DIRECTIONS UNKNOWN 09/23/17 [History] Amlodipine Besylate 10 mg [Norvasc 10 MG] 10 mg PEG DAILY 09/28/17 [History] Hx Tetanus, Diphtheria Vaccination/Date Given: Yes Hx Influenza Vaccination/Date Given: Yes Hx Pneumococcal Vaccination/Date Given: Yes Immunizations Up to Date: Yes - Review of Systems Constitutional: No Symptoms Eyes: No Symptoms Ears, Nose, & Throat: No Symptoms, Ear Pain, Ear Discharge Respiratory: Dyspnea (mild), No Cough, No Stridor, No Wheezing Cardiac: No Symptoms, No Chest Pain, No Palpitations, No Syncope Abdominal/Gastrointestinal: No Symptoms, No Abdominal Pain, No Nausea, No Vomiting, No Diarrhea Genitourinary Symptoms: No Symptoms, No Dysuria, No Hematuria Musculoskeletal: No Symptoms Skin: No Symptoms Neurological: No Symptoms Psychological: No Symptoms Endocrine: No Symptoms Hematologic/Lymphatic: No Symptoms Immunological/Allergic: No Symptoms All Other Systems: Reviewed and Negative - Past Medical History Pertinent Past Medical History: Yes Neurological History: Seizures ENT History: Glaucoma Cardiac History: Hypertension Respiratory History: Pneumonia Endocrine Medical History: No Pertinent History Musculoskeletal History: Other GI Medical History: Other History: Other Psycho-Social History: No Pertinent History Male Reproductive Disorders: Other Other Medical History: HYDROCEPHALUS, ANEMIA, htn,GLAUCOMA, BRONCHITIS, incontinence , wheelchair, feeding tube, urinary retention. - Past Surgical History Past Surgical History: Yes Neuro Surgical History: Brain Shunt Cardiac: No Pertinent History Respiratory: No Pertinent History Gastrointestinal: No Pertinent History Genitourinary: No Pertinent History Musculoskeletal: Other Male Surgical History: No Pertinent History Other Surgical History: SHUNT TO HEAD, peg feeding tube placed and replaced - Social History Smoking Status: Never smoker Exposure to second hand smoke: No Alcohol Use: None Drug Use: none Patient Lives Alone: No Significant Family History: no pertinent family hx - Nursing Vital Signs Nursing Vital Signs: Initial Vital Signs Temperature 99.6 F 05/26/18 06:51 Pulse Rate 95 H 05/26/18 06:51 Respiratory Rate 97 H 05/26/18 06:51 Blood Pressure 140/77 05/26/18 06:51 O2 Sat by Pulse Oximetry 95 05/26/18 06:51 Pain Scale Pain Intensity 0 - Physical Exam General Appearance: no apparent distress Eye Exam: PERRL/EOMI Neck Exam: normal inspection, non-tender, supple, full range of motion Respiratory Exam: normal breath sounds, lungs clear, airway intact, No chest tenderness, No respiratory distress, No accessory muscle use, No rhonchi, No wheezing, No stridor Cardiovascular/Chest Exam: normal heart sounds, regular rate/rhythm Abdominal/Gastrointestinal Exam: soft, normal bowel sounds, other (gastrostomy tube in place), No tenderness, No guarding, No rebound Rectal Exam: not done Extremity Exam: non-tender Neurologic Exam: cooperative, other (pt nonverbal. does not follow commands) Skin Exam: normal color, warm, dry Lymphatic Exam: No adenopathy SpO2 Interpretation: normal SpO2: 95 Oxygen Delivery: Room Air - Course Nursing assessment & vital signs reviewed: Yes EKG Interpreted by Me: RATE (95), Right [place] Deviation, NORMAL INTERVALS, NORMAL QRS, NORMAL ST-T Ordered Tests: Active Orders 24 hr Category Date Time Status Door Clamp Operator STAT Care 05/26/18 07:20 Active Door Clamp Operator STAT Care 05/26/18 08:35 Active EKG-ER Only STAT Care 05/26/18 07:20 Active IV Insertion STAT Care 05/26/18 08:34 Active CHEST 1 VIEW (PORTABLE) Stat Exams 05/26/18 07:20 Completed BLOOD CULTURE Stat Lab 05/26/18 08:50 Received CBC W DIFF Stat Lab 05/26/18 09:10 Completed CMP Stat Lab 05/26/18 09:10 Completed Lactic Acid Stat Lab 05/26/18 08:57 Completed NT PRO BNP Stat Lab 05/26/18 09:10 Completed Medication Summary Generic Name Dose Route Start Last Admin Trade Name Freq PRN Reason Stop Dose Admin Levofloxacin/Dextrose 750 mg in 150 mls @ 100 mls/hr 05/26/18 10:56 Levofloxacin 750mg/150ml D5w IV 05/26/18 12:25 STAT STA Lab/Rad Data: Laboratory Result Diagrams 05/26/18 09:10 05/26/18 09:10 Laboratory Results 11/28/18 11/28/18 11/28/18 Range/Units 09:10 09:10 08:57 WBC 5.0 (4.0-10.5) K/mm3 RBC 4.06 L (4.1-5.6) M/mm3 Hgb 14.0 (12.5-18.0) gm/dl Hct 41.0 L (42-50) % MCV 101.0 H (78-100) fl MCH 34.4 H (26-32) pg MCHC 34.1 (32-36) g/dl RDW 12.6 (11.5-14.0) % Plt Count 203 (150-450) K/mm3 MPV 10.4 H (6-9.5) fl Gran % 63.0 (36.0-66.0) % Eos # (Auto) 0.12 (0-0.5) Absolute Lymphs (auto) 1.06 (1.0-4.6) Absolute Monos (auto) 0.66 (0.0-1.3) Lymphocytes % 21.2 L (24.0-44.0) % Monocytes % 13.2 H (0.0-12.0) % Eosinophils % 2.4 (0.00-5.0) % Basophils % 0.2 (0.0-0.4) % Absolute Granulocytes 3.15 (1.4-6.9) Basophils # 0.01 (0-0.4) Sodium 136 L (137-145) mmol/L Potassium 4.6 (3.5-5.1) mmol/L Chloride 102 (98-107) mmol/L Carbon Dioxide 27 (22-30) mmol/L Anion Gap 12.0 (5-15) MEQ/L BUN 28 H (9-20) mg/dL Creatinine 0.46 L (0.66-1.25) mg/dL Estimated GFR > 60.0 ML/MIN Glucose 109 H (74-106) mg/dL Lactic Acid 1.5 (0.4-2.0) Calcium 9.5 (8.4-10.2) mg/dL Total Bilirubin 0.30 (0.2-1.3) mg/dL AST 22 (17-59) U/L ALT 23 (0-50) U/L Alkaline Phosphatase 66 (38-126) U/L NT-Pro-B Natriuret Pep 30.8 (0-900) pg/mL Serum Total Protein 7.5 (6.3-8.2) g/dL Albumin 4.3 (3.5-5.0) g/dL - Progress Progress: improved Air Movement: good Progress Note: 05/26/18 11:01 cxr reading by radiologist state bilat perihilar congestion/crowding. bilat atelectasis. since pt has a low grade fever and has recurrent pneumonia readily, will tx as out patient with antibx and scheduled neb tx. i discussed with caregiver. Blood Culture(s) Obtained: Yes Antibiotics given: Yes Counseled pt/family regarding: lab results, diagnosis, need for follow-up, rad results - Departure Time of Disposition: 11:04 Departure Disposition: Home Clinical Impression: Fever, Atelectasis Condition: Stable Critical Care Time: No Referrals: DOCTOR,NO FAMILY [NON-STAFF PHY W/O PRIVILEGES] - Additional Instructions: take medications as prescribed except stop azithromycin while taking levaquin. Schedule nebulizer treatments every 6 hours while awake for 48 hours. follow up with prescribing physician for re assessment Prescriptions: Levofloxacin [Levaquin 500 MG Tablet] 500 mg PO DAILY #7 tablet
[2018-05-26 09:22] LABS: BASOPHIL % 0.2 % (0.0-0.4); Basophil (Absolute #) 0.01 (0-0.4); Eosinophil % 2.4 % (0.00-5.0); Eosinophil (Absolute #) 0.12 (0-0.5); Granulocyte Absolute (ANC) 3.15 (1.4-6.9); Lymphocyte (Absolute #) 1.06 (1.0-4.6); Lymphocytes % 21.2 % (24.0-44.0); Mean Corpuscular Hemoglobin 34.4 pg (26-32); Mean Corpuscular Hgb Concent. 34.1 g/dl (32-36); Mean Platelet Volume 10.4 fl (6-9.5); Monocyte (Absolute #) 0.66 (0.0-1.3); Monocytes % 13.2 % (0.0-12.0); Platelet Count 203 K/mm3 (150-450); Red Blood Count 4.06 M/mm3 (4.1-5.6); Red Cell Distribution Width 12.6 % (11.5-14.0)
[2018-05-26 09:36] LABS: ALBUMIN 4.3 g/dL (3.5-5.0); ALKALINE PHOSPHATASE 66 U/L (38-126); BLOOD UREA NITROGEN 28 mg/dL (9-20); CHLORIDE 102 mmol/L (98-107); Calcium 9.5 mg/dL (8.4-10.2); Carbon Dioxide 27 mmol/L (22-30); Creatinine 1 0.46 mg/dL (0.66-1.25); Glucose 109 mg/dL (74-106); NT PRO BNP 30.8 pg/mL (0-900); Potassium 4.6 mmol/L (3.5-5.1); SGOT/AST 22 U/L (17-59); SGPT/ALT 23 U/L (0-50); SODIUM 136 mmol/L (137-145); Total Protein 7.5 g/dL (6.3-8.2)
[2018-05-26] MEDS ORDERED: LEVOFLOXACIN 750MG/150ML D5W 750 MG/150 ML BAG IV STA (10:56)
--- NOTE | 2018-05-26 10:58 | XRAY ---
Exam: AP portable supine chest film from 05/26/2018. Comparison: AP portable chest film from 02/03/2018. Indication: 62-year-old male with shortness of breath, low-grade fever, mentally challenged adults. Findings: The lungs are hypoinflated. The patient is rotated toward the left. The heart size is unchanged and probably within normal limits. Mild bilateral perihilar vascular congestion/crowding is seen. I see no dense airspace consolidations. An azygos fissure is seen within the medial right lung apex. Minimal focal atelectasis or scarring within the right suprahilar projection cannot be excluded. No significant pleural fluid blunts the lateral costophrenic angles. Bowel gas is seen projected over the liver in the right upper quadrant consistent with interposition of bowel and the liver. This is unchanged. The lateral portion of the left hemidiaphragm is partially obscured. This could be artifactual. Some focal atelectasis at this site is not excluded. Some apparent right neck tubing is again seen. This tubing appears broken within the mid aspect of the right side of the neck. In retrospect, I believe this is unchanged. Correlate clinically. Lower thoracic dextroscoliosis is seen. No acute osseous process is seen. Impression: 1. Lung volumes are low which limits assessment and results in mild bilateral perihilar vascular congestion/crowding. 2. I believe there is some minimal discoid atelectasis or scarring within the right suprahilar projection. This is less prominent than that seen on 02/03/2018. Partial obscuration of the lateral portion of the left hemidiaphragm may be due to artifact or minimal adjacent atelectasis. No other gross active lung disease is seen. 3. The heart size is unchanged, and probably within normal limits. 4. Other incidental findings, as discussed above.,
[2018-05-26] MEDS ORDERED: LEVOFLOXACIN 750MG/150ML D5W 750 MG/150 ML BAG IV ONE (11:38)
[2018-05-26 13:31] VITALS: BP 121/106; PULSE 110; O2SAT 94
== END 2018-05-26 14:14 | disposition home or self-care (01) ==
LOC: ED 06:45
DX: J98.11 Atelectasis (principal); R50.9 Fever, unspecified; Z79.899 Other long term (current) drug therapy; Z93.1 Gastrostomy status; I10 Essential (primary) hypertension
CPT/HCPCS: 36415; 71045; 80053; 83605; 83880; 85025; 87040; 93005; 93041; 96365; 99284; J1956

== ENCOUNTER 2018-06-25 10:03 | Emergency (ER) | payer MEDICARE ==
[2018-06-25 10:17] VITALS: O2SAT 98
--- NOTE | 2018-06-25 11:20 | ERPHSYRPT ---
- History of Present Illness Time Seen by Provider: 06/25/18 11:12 Historian: other (childcare administrator) Exam Limitations: other (mental retardation) Patient Subjective Stated Complaint: Medics states "Home healthcare nurse stated there was blood at the base of his G-tube and he is a little congested." . childcare administrator states "overnight staff said G-tube was clogged and when they changed it it was green and bloody. When we started his feed at 8 o'clock it forces it out. we have been having issues with it for a couple of days." Triage Nursing Assessment: Pt alert non verbal male, easy respirations, no apparent respiratory distress. G-tube in place, no blood noted at base of tube. Physician History: The patient is a 62-year-old male with severe mental retardation and does not speak arrives with his caregiver who complains that his G-tube has been getting plugged intermittently for the past week and a half. There is also some scant bloody discharge on the gauze that they have to change every 2 hours. They think that his last feeding at 8:00 forced the G-tube out a little bit. They state that he's been grumpy today. Timing/Duration: week(s) (06/30), gradual onset Activities at Onset: none Abdominal Pain Onset Location: LLQ (G tube) Severity of Pain-Max: mild Severity of Pain-Current: mild Modifying Factors: Improves With: nothing Associated Symptoms: denies symptoms, vomiting, No diarrhea, No nausea Previous symptoms: no prior history Allergies/Adverse Reactions: amoxicillin [From Augmentin] Allergy (Unknown, Verified 05/26/18 07:10) unknown cefazedone Allergy (Unknown, Verified 05/26/18 07:10) unknown clavulanic acid [From Augmentin] Allergy (Unknown, Verified 05/26/18 07:10) unknown codeine Allergy (Unknown, Verified 05/26/18 07:10) unknown Sulfa (Sulfonamide Antibiotics) Allergy (Unknown, Verified 05/26/18 07:10) unknown zinc oxide Allergy (Unknown, Verified 05/26/18 07:10) unknown cefepime Adverse Reaction (Unknown, Verified 05/26/18 07:10) Rash Penicillins Adverse Reaction (Unknown, Verified 05/26/18 07:10) unknown Home Medications: Lisinopril 20 mg [Zestril 20 MG] 20 mg PEG DAILY 02/09/17 [History] Phenobarbital 20 mg/5 ml [Phenobarbital 20 mg/5 ml Elixir] 15 ml PEG DAILY 02/09/17 [History] Valproic Acid 250 mg/5 ml [Depakene 250 MG/5 ML Syrup] 15 ml PEG BID 02/09 [History] Travoprost (Benzalkonium) [Travatan 0.004% Eye Drop] 5 ml OP DAILY 06/10/17 [ History] Carbamide Peroxide [Debrox] 15 ml OT DIRECTIONS UNKNOWN 09/23/17 [History] Amlodipine Besylate 10 mg [Norvasc 10 MG] 10 mg PEG DAILY 09/28/17 [History] Hx Tetanus, Diphtheria Vaccination/Date Given: Yes Hx Influenza Vaccination/Date Given: No Hx Pneumococcal Vaccination/Date Given: No Immunizations Up to Date: Yes - Review of Systems Constitutional: No Fever, No Chills Eyes: No Symptoms Ears, Nose, & Throat: No Symptoms Respiratory: No Cough, No Dyspnea Cardiac: No Chest Pain, No Edema, No Syncope Abdominal/Gastrointestinal: Other (g tube problems) Genitourinary Symptoms: No Dysuria Musculoskeletal: No Back Pain, No Neck Pain Skin: No Rash Neurological: No Dizziness, No Focal Weakness, No Sensory Changes Psychological: No Symptoms Endocrine: No Symptoms Hematologic/Lymphatic: No Symptoms Immunological/Allergic: No Symptoms All Other Systems: Reviewed and Negative - Past Medical History Pertinent Past Medical History: Yes Neurological History: Seizures ENT History: Glaucoma Cardiac History: Hypertension Respiratory History: Pneumonia Endocrine Medical History: No Pertinent History Musculoskeletal History: Other GI Medical History: Other History: Other Psycho-Social History: No Pertinent History Male Reproductive Disorders: Other Other Medical History: HYDROCEPHALUS, ANEMIA, htn,GLAUCOMA, BRONCHITIS, incontinence , wheelchair, feeding tube, urinary retention. - Past Surgical History Past Surgical History: Yes Neuro Surgical History: Brain Shunt Cardiac: No Pertinent History Respiratory: No Pertinent History Gastrointestinal: No Pertinent History Genitourinary: No Pertinent History Musculoskeletal: Other Male Surgical History: No Pertinent History Other Surgical History: SHUNT TO HEAD, peg feeding tube placed and replaced - Social History Smoking Status: Never smoker Exposure to second hand smoke: No Alcohol Use: None Drug Use: none Patient Lives Alone: No Significant Family History: no pertinent family hx - Nursing Vital Signs Nursing Vital Signs: Initial Vital Signs Temperature 97.8 F 06/25/18 10:08 Pulse Rate 88 06/25/18 10:08 Respiratory Rate 18 06/25/18 10:08 Blood Pressure 108/84 06/25/18 10:08 O2 Sat by Pulse Oximetry 98 06/25/18 10:08 Pain Scale Pain Intensity 0 - Physical Exam General Appearance: no apparent distress, alert Eye Exam: PERRL/EOMI, eyes nml inspection Ears, Nose, Throat Exam: normal ENT inspection, pharynx normal, moist mucous membranes Neck Exam: normal inspection, non-tender, supple, full range of motion Respiratory Exam: normal breath sounds, lungs clear, No respiratory distress Cardiovascular Exam: regular rate/rhythm, normal heart sounds Gastrointestinal/Abdomen Exam: soft, other (g tube in place without bleeding), No tenderness, No mass Back Exam: normal inspection, normal range of motion, No CVA tenderness, No vertebral tenderness Extremity Exam: other (bilateral hand contractions) Neurologic Exam: alert, other (cannot speak; severe mental disability) Skin Exam: normal color, warm, dry SpO2 Interpretation: normal SpO2: 98 Oxygen Delivery: Room Air - Radiology Exams Abdomen X-ray Interpretation: Reviewed by me, Teleradiologist Report (per Dr Amaro), Other (G-tube tip in stomach lumen without abnormal extravasation.) Ordered Tests: Active Orders 24 hr Category Date Time Status KUB Stat Exams 06/25/18 11:34 Completed BMP Stat Lab 06/25/18 11:42 Completed CBC W DIFF Stat Lab 06/25/18 11:42 Completed LIPASE Stat Lab 06/25/18 11:42 Completed Lactic Acid Stat Lab 06/25/18 11:45 Completed Lab/Rad Data: Laboratory Result Diagrams 06/25/18 11:42 06/25/18 11:42 Laboratory Results 06/25/18 06/25/18 06/25/18 Range/Units 11:45 11:42 11:42 WBC 5.9 (4.0-10.5) K/mm3 RBC 3.88 L (4.1-5.6) M/mm3 Hgb 13.4 (12.5-18.0) gm/dl Hct 39.5 L (42-50) % MCV 101.8 H (78-100) fl MCH 34.5 H (26-32) pg MCHC 33.9 (32-36) g/dl RDW 12.4 (11.5-14.0) % Plt Count 226 (150-450) K/mm3 MPV 10.4 H (6-9.5) fl Gran % 63.8 (36.0-66.0) % Eos # (Auto) 0.10 (0-0.5) Absolute Lymphs (auto) 1.38 (1.0-4.6) Absolute Monos (auto) 0.64 (0.0-1.3) Lymphocytes % 23.4 L (24.0-44.0) % Monocytes % 10.9 (0.0-12.0) % Eosinophils % 1.7 (0.00-5.0) % Basophils % 0.2 (0.0-0.4) % Absolute Granulocytes 3.76 (1.4-6.9) Basophils # 0.01 (0-0.4) Sodium 137 (137-145) mmol/L Potassium 4.4 (3.5-5.1) mmol/L Chloride 102 (98-107) mmol/L Carbon Dioxide 25 (22-30) mmol/L Anion Gap 14.7 (5-15) MEQ/L BUN 24 H (9-20) mg/dL Creatinine 0.43 L (0.66-1.25) mg/dL Estimated GFR > 60.0 ML/MIN Glucose 109 H (74-106) mg/dL Lactic Acid 1.4 (0.4-2.0) Calcium 9.2 (8.4-10.2) mg/dL Lipase 317 H (23-300) U/L - Progress Progress: unchanged Counseled pt/family regarding: rad results - Departure Time of Disposition: 13:19 Departure Disposition: Home Clinical Impression: Gastrostomy tube in place Condition: Stable Critical Care Time: No Referrals: CINDY HAMILTON MD [Primary Care Provider] - Additional Instructions: Your G-tube by x-ray is in place and is working properly. You have a very mild elevation of the lipase level. Continue the G-tube water and feedings. Follow- up with Dr. Hamilton on Thursday for repeat examination of the lipase level.
[2018-06-25 11:39] VITALS: BP 110/80; PULSE 84
[2018-06-25 11:53] LABS: BASOPHIL % 0.2 % (0.0-0.4); Basophil (Absolute #) 0.01 (0-0.4); Eosinophil % 1.7 % (0.00-5.0); Granulocyte Absolute (ANC) 3.76 (1.4-6.9); Granulocytes % 63.8 % (36.0-66.0); Hematocrit 39.5 % (42-50); Hemoglobin 13.4 gm/dl (12.5-18.0); Lymphocyte (Absolute #) 1.38 (1.0-4.6); Lymphocytes % 23.4 % (24.0-44.0); Mean Cell Volume 101.8 fl (78-100); Mean Corpuscular Hemoglobin 34.5 pg (26-32); Mean Corpuscular Hgb Concent. 33.9 g/dl (32-36); Mean Platelet Volume 10.4 fl (6-9.5); Monocyte (Absolute #) 0.64 (0.0-1.3); Monocytes % 10.9 % (0.0-12.0); Platelet Count 226 K/mm3 (150-450); Red Blood Count 3.88 M/mm3 (4.1-5.6); Red Cell Distribution Width 12.4 % (11.5-14.0); White Blood Count 5.9 K/mm3 (4.0-10.5)
[2018-06-25 12:04] LABS: ANION GAP 14.7 MEQ/L (5-15); BLOOD UREA NITROGEN 24 mg/dL (9-20); CHLORIDE 102 mmol/L (98-107); Calcium 9.2 mg/dL (8.4-10.2); Carbon Dioxide 25 mmol/L (22-30); Creatinine 1 0.43 mg/dL (0.66-1.25); Glucose 109 mg/dL (74-106); LIPASE 317 U/L (23-300); Potassium 4.4 mmol/L (3.5-5.1); SODIUM 137 mmol/L (137-145)
--- NOTE | 2018-06-25 12:19 | XRAY ---
Indication: Blood around G-tube. 15 cc diluted Gastrografin injected into indwelling G-tube with overhead KUB obtained. Contrast collects within the gastric lumen and duodenal sweep confirming G-tube tip in the stomach lumen. No abnormal extravasation. Incidental mild scattered colonic fecal debris without obstruction. Solid organs unremarkable. Osseous structures demonstrates moderate levorotoscoliosis centered at L1. Impression: G-tube tip is in the stomach lumen without abnormal extravasation. Incidental mild fecal stasis.
== END 2018-06-25 15:19 | disposition home or self-care (01) ==
LOC: ED 10:03
DX: Z43.1 Encounter for attention to gastrostomy (principal); F72 Severe intellectual disabilities; R74.8 Abnormal levels of other serum enzymes; Z79.899 Other long term (current) drug therapy
CPT/HCPCS: 36415; 74018; 80048; 83605; 83690; 85025; 99284

== ENCOUNTER 2018-07-11 18:49 | Emergency (ER) | payer MEDICARE ==
--- NOTE | 2018-07-11 19:45 | ERPHSYRPT ---
- History of Present Illness Time Seen by Provider: 07/11/18 19:31 Source: patient Exam Limitations: no limitations Patient Subjective Stated Complaint: Pt caregiver states "He urinated this morning at 6 then agian this afternoon at 530 pm but since it was over 8 hours we have to bring him in to find out why." Triage Nursing Assessment: Pt alert to his norm. Pt in wheelchair, breathing easy. Pt in no apparent respiratory distress. Pt laying calmly on the bed. Physician History: 62-year-old white male with history of hydrocephaly, seizures, glaucoma, pneumonia, high blood pressure, urinary retention Patient is brought by caregiver patient apparently produced urine at approximately 6 AM and did not produce urine again until 5:30 PM. Patient apparently has an order that states that if he goes over 8 hours she needs to have a urine sent. Past medical history includes hydrocephalus, seizures, glaucoma, pneumonia, high blood pressure, anemia, Past surgical history includes brain shunt, feeding tube Timing/Duration: today Severity: moderate Modifying Factors: Improves With: nothing Associated Symptoms: other (only produced urine 2 times today), No nausea, No vomiting, No abdominal pain, No shortness of breath, No heartburn, No diaphoresis, No cough, No chills, No chest pain, No fever, No headaches, No loss of appetite, No malaise, No rash, No syncope, No seizure, No weakness Allergies/Adverse Reactions: amoxicillin [From Augmentin] Allergy (Unknown, Verified 05/26/18 07:10) unknown cefazedone Allergy (Unknown, Verified 05/26/18 07:10) unknown clavulanic acid [From Augmentin] Allergy (Unknown, Verified 05/26/18 07:10) unknown codeine Allergy (Unknown, Verified 05/26/18 07:10) unknown Sulfa (Sulfonamide Antibiotics) Allergy (Unknown, Verified 05/26/18 07:10) unknown zinc oxide Allergy (Unknown, Verified 05/26/18 07:10) unknown cefepime Adverse Reaction (Unknown, Verified 05/26/18 07:10) Rash Penicillins Adverse Reaction (Unknown, Verified 05/26/18 07:10) unknown Home Medications: Lisinopril 20 mg [Zestril 20 MG] 20 mg PEG DAILY 02/09/17 [History] Phenobarbital 20 mg/5 ml [Phenobarbital 20 mg/5 ml Elixir] 15 ml PEG DAILY 02/09/17 [History] Valproic Acid 250 mg/5 ml [Depakene 250 MG/5 ML Syrup] 15 ml PEG BID 02/09 [History] Travoprost (Benzalkonium) [Travatan 0.004% Eye Drop] 5 ml OP DAILY 06/10/17 [ History] Carbamide Peroxide [Debrox] 15 ml OT DIRECTIONS UNKNOWN 09/23/17 [History] Amlodipine Besylate 10 mg [Norvasc 10 MG] 10 mg PEG DAILY 09/28/17 [History] Hx Tetanus, Diphtheria Vaccination/Date Given: Yes Hx Influenza Vaccination/Date Given: Yes Hx Pneumococcal Vaccination/Date Given: Yes Immunizations Up to Date: Yes - Review of Systems Constitutional: No Fever, No Chills Eyes: No Symptoms Ears, Nose, & Throat: No Symptoms Respiratory: No Cough, No Dyspnea Cardiac: No Chest Pain, No Edema, No Syncope Abdominal/Gastrointestinal: No Abdominal Pain, No Nausea, No Vomiting, No Diarrhea Genitourinary Symptoms: Other (decreased urination today) Musculoskeletal: No Back Pain, No Neck Pain Skin: No Rash Neurological: No Dizziness, No Focal Weakness, No Sensory Changes Psychological: No Symptoms Endocrine: No Symptoms All Other Systems: Reviewed and Negative - Past Medical History Pertinent Past Medical History: Yes Neurological History: Seizures ENT History: Glaucoma Cardiac History: Hypertension Respiratory History: Pneumonia Endocrine Medical History: No Pertinent History Musculoskeletal History: Other GI Medical History: Other History: Other Psycho-Social History: No Pertinent History Male Reproductive Disorders: Other Other Medical History: HYDROCEPHALUS, ANEMIA, htn,GLAUCOMA, BRONCHITIS, incontinence , wheelchair, feeding tube, urinary retention. - Past Surgical History Past Surgical History: Yes Neuro Surgical History: Brain Shunt Cardiac: No Pertinent History Respiratory: No Pertinent History Gastrointestinal: No Pertinent History Genitourinary: No Pertinent History Musculoskeletal: Other Male Surgical History: No Pertinent History Other Surgical History: SHUNT TO HEAD, peg feeding tube placed and replaced - Social History Smoking Status: Never smoker Exposure to second hand smoke: No Alcohol Use: None Drug Use: none Patient Lives Alone: No Significant Family History: no pertinent family hx - Nursing Vital Signs Nursing Vital Signs: Initial Vital Signs Temperature 98.3 F 07/11/18 18:58 Pulse Rate 96 H 07/11/18 18:58 Respiratory Rate 20 07/11/18 18:58 Blood Pressure 141/83 07/11/18 18:58 O2 Sat by Pulse Oximetry 98 07/11/18 18:58 Pain Scale Pain Intensity 0 - Physical Exam General Appearance: no apparent distress, alert Eye Exam: PERRL/EOMI, eyes nml inspection Ears, Nose, Throat Exam: normal ENT inspection, TMs normal, pharynx normal, moist mucous membranes Neck Exam: normal inspection, non-tender, supple, full range of motion Respiratory Exam: normal breath sounds, lungs clear, No respiratory distress Cardiovascular Exam: regular rate/rhythm, normal heart sounds, normal peripheral pulses Gastrointestinal/Abdomen Exam: soft, normal bowel sounds, No tenderness, No mass Back Exam: normal inspection, normal range of motion, No CVA tenderness, No vertebral tenderness Extremity Exam: normal inspection, normal range of motion, pelvis stable Neurologic Exam: alert, cooperative, normal mood/affect, nml cerebellar function , nml station & gait, sensation nml, other (non verbal, alert), No motor deficits Skin Exam: normal color, warm, dry, No rash Lymphatic Exam: No adenopathy SpO2 Interpretation: normal (98%), borderline oxygenation SpO2: 98 Oxygen Delivery: Room Air Ordered Tests: Active Orders 24 hr Category Date Time Status CBC W DIFF Stat Lab 07/11/18 20:06 Completed CMP Stat Lab 07/11/18 20:06 Completed UA W/RFX UR CULTURE Stat Lab 07/11/18 20:07 Completed Lab/Rad Data: Laboratory Result Diagrams 07/11/18 20:06 07/11/18 20:06 Laboratory Results 07/11/18 07/11/18 07/11/18 Range/Units 20:07 20:06 20:06 WBC 5.7 (4.0-10.5) K/mm3 RBC 4.03 L (4.1-5.6) M/mm3 Hgb 13.8 (12.5-18.0) gm/dl Hct 41.1 L (42-50) % MCV 102.0 H (78-100) fl MCH 34.2 H (26-32) pg MCHC 33.6 (32-36) g/dl RDW 12.5 (11.5-14.0) % Plt Count 209 (150-450) K/mm3 MPV 10.3 H (6-9.5) fl Gran % 63.5 (36.0-66.0) % Eos # (Auto) 0.11 (0-0.5) Absolute Lymphs (auto) 1.09 (1.0-4.6) Absolute Monos (auto) 0.86 (0.0-1.3) Lymphocytes % 19.2 L (24.0-44.0) % Monocytes % 15.2 H (0.0-12.0) % Eosinophils % 1.9 (0.00-5.0) % Basophils % 0.2 (0.0-0.4) % Absolute Granulocytes 3.60 (1.4-6.9) Basophils # 0.01 (0-0.4) Sodium 137 (137-145) mmol/L Potassium 4.5 (3.5-5.1) mmol/L Chloride 99 (98-107) mmol/L Carbon Dioxide 31 H (22-30) mmol/L Anion Gap 12.2 (5-15) MEQ/L BUN 26 H (9-20) mg/dL Creatinine 0.47 L (0.66-1.25) mg/dL Estimated GFR > 60.0 ML/MIN Glucose 96 (74-106) mg/dL Calcium 9.0 (8.4-10.2) mg/dL Total Bilirubin 0.40 (0.2-1.3) mg/dL AST 20 (17-59) U/L ALT 21 (0-50) U/L Alkaline Phosphatase 65 (38-126) U/L Serum Total Protein 7.5 (6.3-8.2) g/dL Albumin 4.2 (3.5-5.0) g/dL Urine Color YELLOW (YELLOW) Urine Appearance SLIGHTLY CLOUDY (CLEAR) Urine pH 7.0 (5-6) Ur Specific [place] 1.023 (1.005-1.025) Urine Protein NEGATIVE (Negative) Urine Ketones NEGATIVE (NEGATIVE) Urine Blood NEGATIVE (0-5) Donis/ul Urine Nitrite NEGATIVE (NEGATIVE) Urine Bilirubin NEGATIVE (NEGATIVE) Urine Urobilinogen 2 (0-1) mg/dL Ur Leukocyte Esterase NEGATIVE (NEGATIVE) Urine WBC (Auto) 3-5 (0-5) /HPF Urine RBC (Auto) NONE (0-2) /HPF U Epithel Cells (Auto) NONE (FEW) /HPF Urine Bacteria (Auto) NONE SEEN (NEGATIVE) /HPF Urine Culture Reflexed NO (NO) Urine Glucose NEGATIVE (NEGATIVE) mg/dL - Progress Progress: improved Progress Note: 07/11/18 20:45 Patient with 100 mL out with placement of Hernández. Patient's CBC CMP UA essentially normal. Will discharge. Patient to resume current medications and treatments. - Departure Time of Disposition: 20:46 Departure Disposition: Home Clinical Impression: Decreased urine output, History of urinary retention Condition: Fair Critical Care Time: No Referrals: CINDY HAMILTON MD [Primary Care Provider] - Additional Instructions: Return home. Continue current medications and treatment. Follow-up with your family doctor. Return for acute distress or for severe symptoms.
[2018-07-11 20:09] LABS: BASOPHIL % 0.2 % (0.0-0.4); Basophil (Absolute #) 0.01 (0-0.4); Eosinophil % 1.9 % (0.00-5.0); Eosinophil (Absolute #) 0.11 (0-0.5); Granulocytes % 63.5 % (36.0-66.0); Hematocrit 41.1 % (42-50); Hemoglobin 13.8 gm/dl (12.5-18.0); Lymphocyte (Absolute #) 1.09 (1.0-4.6); Lymphocytes % 19.2 % (24.0-44.0); Mean Corpuscular Hemoglobin 34.2 pg (26-32); Mean Corpuscular Hgb Concent. 33.6 g/dl (32-36); Mean Platelet Volume 10.3 fl (6-9.5); Monocyte (Absolute #) 0.86 (0.0-1.3); Monocytes % 15.2 % (0.0-12.0); Platelet Count 209 K/mm3 (150-450); Red Blood Count 4.03 M/mm3 (4.1-5.6); Red Cell Distribution Width 12.5 % (11.5-14.0); White Blood Count 5.7 K/mm3 (4.0-10.5)
[2018-07-11 20:12] LABS: Appearance SLIGHTLY CLOUDY (CLEAR); Bilirubin NEGATIVE (NEGATIVE); Blood NEGATIVE Ery/ul (0-5); Glucose NEGATIVE (NEGATIVE); Ketones NEGATIVE (NEGATIVE); Leukocyte Esterase NEGATIVE (NEGATIVE); Nitrite NEGATIVE (NEGATIVE); Protein,Urine Dip NEGATIVE (Negative); Specific Gravity 1.023 (1.005-1.025); Urobilinogen 2 mg/dL (0-1)
[2018-07-11 20:15] LABS: Bacteria NONE SEEN /HPF (NEGATIVE)
[2018-07-11 20:25] LABS: ALBUMIN 4.2 g/dL (3.5-5.0); ALKALINE PHOSPHATASE 65 U/L (38-126); ANION GAP 12.2 MEQ/L (5-15); BLOOD UREA NITROGEN 26 mg/dL (9-20); CHLORIDE 99 mmol/L (98-107); Carbon Dioxide 31 mmol/L (22-30); Creatinine 1 0.47 mg/dL (0.66-1.25); Glucose 96 mg/dL (74-106); Potassium 4.5 mmol/L (3.5-5.1); SGOT/AST 20 U/L (17-59); SGPT/ALT 21 U/L (0-50); SODIUM 137 mmol/L (137-145); Total Protein 7.5 g/dL (6.3-8.2)
[2018-07-11 21:02] VITALS: BP 132/110; PULSE 60; O2SAT 97
== END 2018-07-11 21:09 | disposition home or self-care (01) ==
LOC: ED 18:49
DX: R34 Anuria and oliguria (principal); Z87.448 Personal history of other diseases of urinary system; I10 Essential (primary) hypertension; Z79.899 Other long term (current) drug therapy
CPT/HCPCS: 36415; 51702; 80053; 81001; 85025; 99284

== ENCOUNTER 2018-08-17 20:47 | Emergency (ER) | payer MEDICARE ==
--- NOTE | 2018-08-17 21:55 | ERPHSYRPT ---
- History of Present Illness Time Seen by Provider: 08/17/18 21:33 Source: other (patient's caregiver) Exam Limitations: no limitations Patient Subjective Stated Complaint: G-tube was pulled out Triage Nursing Assessment: Patient brought into ED per EMS and transferred to bed with assist of 2. Patient Alert. Patient's caregiver states patient accidently pulled g-tube out of left upper abdomen during a shower. Patient's incision to left upper abdomen dressed with 4X4s and tape. Physician History: 62-year-old white male with history of seizures, glaucoma, high blood pressure, pneumonia, hydrocephalus, anemia, high blood pressure, bronchitis who uses a wheelchair a feeding tube who also has urinary retention Patient brought by his caregiver with complaint that the patient has pulled out his feeding tube at approximately just after 8:00 this evening. Patient without any other complaints. Past medical history includes seizures, glaucoma, high blood pressure, pneumonia , hydrocephalus, anemia, high blood pressure, bronchitis, patient is in a wheelchair, he uses feeding tubes, he has urinary retention. Past surgical history includes brain shunt, patient with a feeding tube Timing/Duration: today (8:00 PM) Severity: mild Modifying Factors: Improves With: nothing Associated Symptoms: other (patient pulled out feeding tube), No nausea, No vomiting, No abdominal pain, No shortness of breath, No heartburn, No diaphoresis, No cough, No chills, No chest pain, No fever, No headaches, No loss of appetite, No malaise, No rash, No syncope, No seizure, No weakness Allergies/Adverse Reactions: amoxicillin [From Augmentin] Allergy (Unknown, Verified 08/17/18 20:50) unknown cefazedone Allergy (Unknown, Verified 08/17/18 20:50) unknown clavulanic acid [From Augmentin] Allergy (Unknown, Verified 08/17/18 20:50) unknown codeine Allergy (Unknown, Verified 08/17/18 20:50) unknown Sulfa (Sulfonamide Antibiotics) Allergy (Unknown, Verified 08/17/18 20:50) unknown zinc oxide Allergy (Unknown, Verified 08/17/18 20:50) unknown cefepime Adverse Reaction (Unknown, Verified 08/17/18 20:50) Rash Penicillins Adverse Reaction (Unknown, Verified 08/17/18 20:50) unknown Home Medications: Lisinopril 20 mg [Zestril 20 MG] 20 mg PEG DAILY 02/09/17 [History] Phenobarbital 20 mg/5 ml [Phenobarbital 20 mg/5 ml Elixir] 15 ml PEG DAILY 02/09/17 [History] Valproic Acid 250 mg/5 ml [Depakene 250 MG/5 ML Syrup] 15 ml PEG BID 02/09 [History] Travoprost (Benzalkonium) [Travatan 0.004% Eye Drop] 5 ml OP DAILY 06/10/17 [ History] Carbamide Peroxide [Debrox] 15 ml OT DIRECTIONS UNKNOWN 09/23/17 [History] Amlodipine Besylate 10 mg [Norvasc 10 MG] 10 mg PEG DAILY 09/28/17 [History] Hx Tetanus, Diphtheria Vaccination/Date Given: Yes Hx Influenza Vaccination/Date Given: Yes Hx Pneumococcal Vaccination/Date Given: No Immunizations Up to Date: Yes - Review of Systems Constitutional: No Fever, No Chills Eyes: No Symptoms Ears, Nose, & Throat: No Symptoms Respiratory: No Cough, No Dyspnea Cardiac: No Chest Pain, No Edema, No Syncope Abdominal/Gastrointestinal: Other (patient pulled out feeding tube) Genitourinary Symptoms: No Dysuria Musculoskeletal: No Back Pain, No Neck Pain Skin: No Rash Neurological: No Dizziness, No Focal Weakness, No Sensory Changes Psychological: No Symptoms Endocrine: No Symptoms All Other Systems: Reviewed and Negative - Past Medical History Pertinent Past Medical History: Yes Neurological History: Seizures ENT History: Glaucoma Cardiac History: Hypertension Respiratory History: Pneumonia Endocrine Medical History: No Pertinent History Musculoskeletal History: Other GI Medical History: Other History: Other Psycho-Social History: No Pertinent History Male Reproductive Disorders: Other Other Medical History: HYDROCEPHALUS, ANEMIA, htn,GLAUCOMA, BRONCHITIS, incontinence , wheelchair, feeding tube, urinary retention. - Past Surgical History Past Surgical History: Yes Neuro Surgical History: Brain Shunt Cardiac: No Pertinent History Respiratory: No Pertinent History Gastrointestinal: No Pertinent History Genitourinary: No Pertinent History Musculoskeletal: Other Male Surgical History: No Pertinent History Other Surgical History: SHUNT TO HEAD, peg feeding tube placed and replaced - Social History Smoking Status: Never smoker Exposure to second hand smoke: No Alcohol Use: None Drug Use: none Patient Lives Alone: No Significant Family History: no pertinent family hx - Nursing Vital Signs Nursing Vital Signs: Initial Vital Signs Temperature 97.8 F 08/17/18 20:50 Pulse Rate 93 H 08/17/18 20:50 Respiratory Rate 18 08/17/18 20:50 Blood Pressure 140/92 08/17/18 20:50 O2 Sat by Pulse Oximetry 94 L 08/17/18 20:50 Pain Scale Pain Intensity 0 - Physical Exam General Appearance: no apparent distress, alert Eye Exam: PERRL/EOMI, eyes nml inspection Ears, Nose, Throat Exam: normal ENT inspection, TMs normal, pharynx normal, moist mucous membranes Respiratory Exam: normal breath sounds, lungs clear, No respiratory distress Cardiovascular Exam: regular rate/rhythm, normal heart sounds, normal peripheral pulses Gastrointestinal/Abdomen Exam: normal bowel sounds, other (ostomy in placeleft lower quadrantno erythema), No tenderness Extremity Exam: other (contracted lower extremities) Neurologic Exam: alert, digital production manager II-XII nml as tested Skin Exam: normal color, warm, dry, No rash SpO2 Interpretation: normal (94%) SpO2: 94 - Course Nursing assessment & vital signs reviewed: Yes - Radiology Exams Other X-ray Interpretation: Teleradiologist Report (KUB: Impression gastrostomy tube overlying the stomach. Exact location cannot be confirmed on this exam.) Ordered Tests: Active Orders 24 hr Category Date Time Status KUB Stat Exams 08/17/18 22:00 Taken - Progress Progress: improved Progress Note: 08/17/18 21:54 This is a 62-year-old white male who uses a wheelchair with a history of hydrocephaly, glaucoma, chronic feeding tube. He is brought with staff from care facility with complaint that he pulled his feeding tube out while at detention today. Patient is in no acute distress tube was pulled out around 8 PM. Will check x- ray for placement. Replacement of feeding tube. Area is cleaned left lower quadrant. #20 [place] placed without difficulty. Will check x-ray for 08/17/18 23:09 KUB read by virtual states gastrostomy tube overlying the stomach. The exact location cannot be confirmed on this exam. senior pharmacy technician apparently unable to use Gastrografin. I've asked the nurses to attempt to aspirate through the gastrostomy tube there is a return of stomach fluid. Will go ahead and discharge patient. Patient to resume current medications and treatment follow-up with his family doctor or return if problems. - Departure Time of Disposition: 23:10 Departure Disposition: Home Clinical Impression: Encounter for feeding tube placement Condition: Fair Critical Care Time: No Referrals: CINDY HAMILTON MD [Primary Care Provider] - Additional Instructions: Return home Continue current medications and treatments. Follow-up with your family doctor. Return for acute distress or for severe symptoms or for any problems.
[2018-08-17 23:58] VITALS: BP 175/80; PULSE 90; O2SAT 96
--- NOTE | 2018-08-18 08:41 | XRAY ---
Indication: Pulled out feeding tube. Comparison: June 25, 2018. KUB again demonstrates PEG tube tip projecting left epigastric region. Slight worsening scattered colonic fecal debris obscuring solid organs. Stable mild osteopenia and levorotoscoliosis. No new/acute findings. Comment: Preliminary interpretation was made by [facility]. No discrepancy.
== END 2018-08-17 23:58 | disposition home or self-care (01) ==
LOC: ED 20:47
DX: Z43.1 Encounter for attention to gastrostomy (principal); Z93.1 Gastrostomy status; G40.909 Epilepsy, unspecified, not intractable, without status epilepticus; I10 Essential (primary) hypertension; R33.9 Retention of urine, unspecified; Z79.899 Other long term (current) drug therapy
CPT/HCPCS: 74018; 99283

== ENCOUNTER 2018-08-27 09:35 | Emergency (ER) | payer MEDICARE ==
[2018-08-27 09:50] VITALS: PULSE 68; O2SAT 94
[2018-08-27 10:18] LABS: BASOPHIL % 0.2 % (0.0-0.4); Basophil (Absolute #) 0.01 (0-0.4); Eosinophil % 2.2 % (0.00-5.0); Eosinophil (Absolute #) 0.11 (0-0.5); Granulocyte Absolute (ANC) 2.82 (1.4-6.9); Granulocytes % 56.2 % (36.0-66.0); Hematocrit 39.6 % (42-50); Hemoglobin 13.5 gm/dl (12.5-18.0); Lymphocyte (Absolute #) 1.43 (1.0-4.6); Lymphocytes % 28.5 % (24.0-44.0); Mean Cell Volume 100.8 fl (78-100); Mean Corpuscular Hgb Concent. 34.1 g/dl (32-36); Mean Platelet Volume 11.1 fl (6-9.5); Monocyte (Absolute #) 0.65 (0.0-1.3); Monocytes % 12.9 % (0.0-12.0); Platelet Count 171 K/mm3 (150-450); Red Blood Count 3.93 M/mm3 (4.1-5.6); Red Cell Distribution Width 12.3 % (11.5-14.0)
[2018-08-27 10:20] LABS: Mean Corpuscular Hemoglobin 34.3 pg (26-32)
[2018-08-27 10:25] LABS: ALKALINE PHOSPHATASE 60 U/L (38-126); ANION GAP 12.1 MEQ/L (5-15); BLOOD UREA NITROGEN 31 mg/dL (9-20); CHLORIDE 102 mmol/L (98-107); Calcium 9.1 mg/dL (8.4-10.2); Carbon Dioxide 29 mmol/L (22-30); Creatinine 1 0.56 mg/dL (0.66-1.25); Glucose 103 mg/dL (74-106); Potassium 4.3 mmol/L (3.5-5.1); SGOT/AST 19 U/L (17-59); SGPT/ALT 23 U/L (0-50); SODIUM 139 mmol/L (137-145)
[2018-08-27 10:43] LABS: Appearance SLIGHTLY CLOUDY (CLEAR); Bacteria RARE /HPF (NEGATIVE); Bilirubin NEGATIVE (NEGATIVE); Blood NEGATIVE Ery/ul (0-5); Glucose NEGATIVE (NEGATIVE); Hyaline Casts 0-2 /LPF (0-2); Ketones TRACE (NEGATIVE); Leukocyte Esterase NEGATIVE (NEGATIVE); Mucus SLIGHT /HPF (NEGATIVE); Nitrite NEGATIVE (NEGATIVE); Protein,Urine Dip NEGATIVE (Negative); RBC 0-2 /HPF (0-2); Specific Gravity 1.027 (1.005-1.025); Urobilinogen 2 mg/dL (0-1)
--- NOTE | 2018-08-27 11:02 | ERPHSYRPT ---
- History of Present Illness Source: detention records Exam Limitations: clinical condition Patient Subjective Stated Complaint: pediatric care coordinator states no urine output since yesterday. wears depends incontinet as norm. Triage Nursing Assessment: alert and in no distress. abdomen soft and no facial distress on palpation. pediatric care coordinator at bedside for hx. Physician History: Pt presented from a snf, as he did not have any wet diapers fro 16 hrs. Pt is non febrile, and as he is not communicating, and not mobile, a ROS was not available. Timing/Duration: yesterday Activites at Onset: none Allergies/Adverse Reactions: amoxicillin [From Augmentin] Allergy (Unknown, Verified 08/27/18 10:23) unknown cefazedone Allergy (Unknown, Verified 08/27/18 10:23) unknown clavulanic acid [From Augmentin] Allergy (Unknown, Verified 08/27/18 10:23) unknown codeine Allergy (Unknown, Verified 08/27/18 10:23) unknown Sulfa (Sulfonamide Antibiotics) Allergy (Unknown, Verified 08/27/18 10:23) unknown zinc oxide Allergy (Unknown, Verified 08/27/18 10:23) unknown cefepime Adverse Reaction (Unknown, Verified 08/27/18 10:23) Rash Penicillins Adverse Reaction (Unknown, Verified 08/27/18 10:23) unknown Home Medications: Lisinopril 20 mg [Zestril 20 MG] 20 mg PEG DAILY 02/09/17 [History] Phenobarbital 20 mg/5 ml [Phenobarbital 20 mg/5 ml Elixir] 15 ml PEG DAILY 02/09/17 [History] Valproic Acid 250 mg/5 ml [Depakene 250 MG/5 ML Syrup] 15 ml PEG BID 02/09 [History] Travoprost (Benzalkonium) [Travatan 0.004% Eye Drop] 5 ml OP DAILY 06/10/17 [ History] Carbamide Peroxide [Debrox] 15 ml OT DIRECTIONS UNKNOWN 09/23/17 [History] Amlodipine Besylate 10 mg [Norvasc 10 MG] 10 mg PEG DAILY 09/28/17 [History] Hx Tetanus, Diphtheria Vaccination/Date Given: Yes Hx Influenza Vaccination/Date Given: Yes Hx Pneumococcal Vaccination/Date Given: No Immunizations Up to Date: Yes - Past Medical History Pertinent Past Medical History: Yes Neurological History: Seizures ENT History: Glaucoma Cardiac History: Hypertension Respiratory History: Pneumonia Endocrine Medical History: No Pertinent History Musculoskeletal History: Other GI Medical History: Other History: Other Psycho-Social History: No Pertinent History Male Reproductive Disorders: Other Other Medical History: HYDROCEPHALUS, ANEMIA, htn,GLAUCOMA, BRONCHITIS, incontinence , wheelchair, feeding tube, urinary retention. - Past Surgical History Past Surgical History: Yes Neuro Surgical History: Brain Shunt Cardiac: No Pertinent History Respiratory: No Pertinent History Gastrointestinal: No Pertinent History Genitourinary: No Pertinent History Musculoskeletal: Other Male Surgical History: No Pertinent History Other Surgical History: SHUNT TO HEAD, peg feeding tube placed and replaced - Social History Smoking Status: Never smoker Exposure to second hand smoke: No Alcohol Use: None Drug Use: none Patient Lives Alone: No (per pediatric care coordinator) Significant Family History: no pertinent family hx - Review of Systems Constitutional: Other (Can't get any ROS from the pt.) - Nursing Vital Signs Nursing Vital Signs: Initial Vital Signs Pulse Rate 68 08/27/18 09:43 Respiratory Rate 20 08/27/18 09:43 Blood Pressure 140/0 08/27/18 09:43 O2 Sat by Pulse Oximetry 94 L 08/27/18 09:43 Pain Scale Pain Intensity 0 - Physical Exam General Appearance: no apparent distress Eye Exam: PERRL/EOMI Ears, Nose, Throat Exam: TMs normal Respiratory Exam: normal breath sounds, lungs clear Cardiovascular Exam: regular rate/rhythm, No edema Gastrointestinal/Abdomen Exam: soft, No tenderness Extremity Exam: other (pt is contracted, and is not mobile. Atrophy of muscles. ) SpO2: 94 - Course Nursing assessment & vital signs reviewed: Yes Ordered Tests: Active Orders 24 hr Category Date Time Status CBC W DIFF Stat Lab 08/27/18 10:00 Completed CMP Stat Lab 08/27/18 10:00 Completed CULTURE,URINE Stat Lab 08/27/18 10:05 Received UA W/RFX UR CULTURE Stat Lab 08/27/18 10:05 Completed Lab/Rad Data: Laboratory Result Diagrams 08/27/18 10:00 08/27/18 10:00 Laboratory Results 08/27/18 08/27/18 08/27/18 Range/Units 10:05 10:00 10:00 WBC 5.0 (4.0-10.5) K/mm3 RBC 3.93 L (4.1-5.6) M/mm3 Hgb 13.5 (12.5-18.0) gm/dl Hct 39.6 L (42-50) % MCV 100.8 H (78-100) fl MCH 34.3 H (26-32) pg MCHC 34.1 (32-36) g/dl RDW 12.3 (11.5-14.0) % Plt Count 171 (150-450) K/mm3 MPV 11.1 H (6-9.5) fl Gran % 56.2 (36.0-66.0) % Eos # (Auto) 0.11 (0-0.5) Absolute Lymphs (auto) 1.43 (1.0-4.6) Absolute Monos (auto) 0.65 (0.0-1.3) Lymphocytes % 28.5 (24.0-44.0) % Monocytes % 12.9 H (0.0-12.0) % Eosinophils % 2.2 (0.00-5.0) % Basophils % 0.2 (0.0-0.4) % Absolute Granulocytes 2.82 (1.4-6.9) Basophils # 0.01 (0-0.4) Sodium 139 (137-145) mmol/L Potassium 4.3 (3.5-5.1) mmol/L Chloride 102 (98-107) mmol/L Carbon Dioxide 29 (22-30) mmol/L Anion Gap 12.1 (5-15) MEQ/L BUN 31 H (9-20) mg/dL Creatinine 0.56 L (0.66-1.25) mg/dL Estimated GFR > 60.0 ML/MIN Glucose 103 (74-106) mg/dL Calcium 9.1 (8.4-10.2) mg/dL Total Bilirubin 0.30 (0.2-1.3) mg/dL AST 19 (17-59) U/L ALT 23 (0-50) U/L Alkaline Phosphatase 60 (38-126) U/L Serum Total Protein 7.0 (6.3-8.2) g/dL Albumin 4.0 (3.5-5.0) g/dL Urine Color KATHY (YELLOW) Urine Appearance SLIGHTLY CLOUDY (CLEAR) Urine pH 5.0 (5-6) Ur Specific [place] 1.027 (1.005-1.025) Urine Protein NEGATIVE (Negative) Urine Ketones TRACE (NEGATIVE) Urine Blood NEGATIVE (0-5) Donis/ul Urine Nitrite NEGATIVE (NEGATIVE) Urine Bilirubin NEGATIVE (NEGATIVE) Urine Urobilinogen 2 (0-1) mg/dL Ur Leukocyte Esterase NEGATIVE (NEGATIVE) Urine WBC (Auto) 3-5 (0-5) /HPF Urine RBC (Auto) 0-2 (0-2) /HPF U Hyaline Cast (Auto) 0-2 (0-2) /LPF U Epithel Cells (Auto) NONE (FEW) /HPF Urine Bacteria (Auto) RARE (NEGATIVE) /HPF Urine Mucus (Auto) SLIGHT (NEGATIVE) /HPF Urine Culture Reflexed YES (NO) Urine Glucose NEGATIVE (NEGATIVE) mg/dL - Progress Progress: unchanged Progress Note: 08/27/18 11:00 Pt had labs and UA checked. There are no signes of UTI, and no decrease in kidney function or labs. No leukocytosis or anemia. Pt is cleared fo d/c. Can increase water flushes via PEG. Will see patient in: office Counseled pt/family regarding: need for follow-up - Departure Time of Disposition: 11:01 Departure Disposition: Extended Care Facility Clinical Impression: Urinary retention Condition: Stable Critical Care Time: No Referrals: CINDY HAMILTON MD [Primary Care Provider] - Additional Instructions: F/U with PCP. Increase water flushes via PEG.
[2018-08-27 11:21] VITALS: BP 138/0
== END 2018-08-27 11:30 | disposition home or self-care (01) ==
LOC: ED 09:35
DX: R33.9 Retention of urine, unspecified (principal); Z79.899 Other long term (current) drug therapy; I10 Essential (primary) hypertension
CPT/HCPCS: 36415; 80053; 81001; 85025; 87086; 99283

== ENCOUNTER 2018-11-07 21:46 | Emergency (ER) | payer MEDICARE ==
[2018-11-07] MEDS ORDERED: Sodium Chloride 0.9% 1000 ML 1,000 ML IV SCH (22:00)
--- NOTE | 2018-11-07 22:04 | ERPHSYRPT ---
- History of Present Illness Time Seen by Provider: 11/07/18 21:58 Source: other ([facility] care) Exam Limitations: other (patient does not speak) Physician History: 63-year-old white male with history of seizures, glaucoma, high blood pressure, hydrocephalus , glaucoma, anemia, high blood pressure, pneumonia, bronchitis Who has a feeding tube Sent from [facility] with complaint that the patient has not had a bowel movement for 5 days she also state they think he has a urinary tract infection. Past medical history includes seizures, glaucoma, high blood pressure, pneumonia, hydrocephalus, anemia, glaucoma, bronchitis, patient with a feeding tube, urinary retention Past surgical history includes brain shunt and feeding tube Timing/Duration: day(s) (5 days) Modifying Factors: Improves With: nothing Associated Symptoms: other (no stools for 5 days), No nausea, No vomiting, No shortness of breath, No heartburn, No diaphoresis, No cough, No chills, No chest pain, No fever, No headaches, No loss of appetite, No malaise, No rash, No syncope, No seizure, No weakness Allergies/Adverse Reactions: amoxicillin [From Augmentin] Allergy (Unknown, Verified 08/27/18 10:23) unknown cefazedone Allergy (Unknown, Verified 08/27/18 10:23) unknown clavulanic acid [From Augmentin] Allergy (Unknown, Verified 08/27/18 10:23) unknown codeine Allergy (Unknown, Verified 08/27/18 10:23) unknown Sulfa (Sulfonamide Antibiotics) Allergy (Unknown, Verified 08/27/18 10:23) unknown zinc oxide Allergy (Unknown, Verified 08/27/18 10:23) unknown cefepime Adverse Reaction (Unknown, Verified 08/27/18 10:23) Rash Penicillins Adverse Reaction (Unknown, Verified 08/27/18 10:23) unknown Home Medications: Lisinopril 20 mg [Zestril 20 MG] 20 mg PEG DAILY 02/09/17 [History] Phenobarbital 20 mg/5 ml [Phenobarbital 20 mg/5 ml Elixir] 15 ml PEG DAILY 02/09/17 [History] Valproic Acid 250 mg/5 ml [Depakene 250 MG/5 ML Syrup] 15 ml PEG BID 02/09 [History] Travoprost (Benzalkonium) [Travatan 0.004% Eye Drop] 5 ml OP DAILY 06/10/17 [ History] Carbamide Peroxide [Debrox] 15 ml OT DIRECTIONS UNKNOWN 09/23/17 [History] Amlodipine Besylate 10 mg [Norvasc 10 MG] 10 mg PEG DAILY 09/28/17 [History] Hx Tetanus, Diphtheria Vaccination/Date Given: Yes Hx Influenza Vaccination/Date Given: Yes Hx Pneumococcal Vaccination/Date Given: No - Review of Systems Constitutional: No Fever, No Chills Eyes: No Symptoms Ears, Nose, & Throat: No Symptoms Respiratory: No Cough, No Dyspnea Cardiac: No Chest Pain, No Edema, No Syncope Abdominal/Gastrointestinal: Other (no bowel movement for 5 days), No Nausea, No Vomiting, No Diarrhea, No Constipation, No Hematemesis, No Hematochezia, No Melena, No Dysphagia, No Appetite Changes Genitourinary Symptoms: Other (rest care feels like patient might have a urinary tract infection) Musculoskeletal: No Back Pain, No Neck Pain Skin: No Rash Neurological: No Dizziness, No Focal Weakness, No Sensory Changes Psychological: No Symptoms Endocrine: No Symptoms All Other Systems: Reviewed and Negative - Past Medical History Pertinent Past Medical History: Yes Neurological History: Seizures ENT History: Glaucoma Cardiac History: Hypertension Respiratory History: Pneumonia Endocrine Medical History: No Pertinent History Musculoskeletal History: Other GI Medical History: Other History: Other Psycho-Social History: No Pertinent History Male Reproductive Disorders: Other Other Medical History: HYDROCEPHALUS, ANEMIA, htn,GLAUCOMA, BRONCHITIS, incontinence , wheelchair, feeding tube, urinary retention. 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) Significant Family History: no pertinent family hx - Nursing Vital Signs Nursing Vital Signs: Initial Vital Signs Temperature 97.2 F 11/07/18 21:51 Pulse Rate 94 H 11/07/18 21:51 Respiratory Rate 18 11/07/18 21:51 Blood Pressure 139/87 11/07/18 21:51 O2 Sat by Pulse Oximetry 97 11/07/18 21:51 - Physical Exam General Appearance: no apparent distress, other (white male alert aphasic does not left upper extremity left upper extremity contracted resists examination) Eye Exam: PERRL/EOMI Ears, Nose, Throat Exam: normal ENT inspection, TMs normal, pharynx normal, moist mucous membranes Neck Exam: normal inspection, non-tender, supple, full range of motion Respiratory Exam: normal breath sounds, lungs clear, No respiratory distress Cardiovascular Exam: regular rate/rhythm, normal heart sounds, normal peripheral pulses, capillary refill <2 sec Gastrointestinal/Abdomen Exam: soft, normal bowel sounds, distention, hernia ( Umbilical hernia reduces easily), other (abdomen distended, positive umbilical hernia reduces easily, positive bowel sounds, difficult to evaluate tenderness) Rectal Exam: normal exam, No black stool, No blood Extremity Exam: other (left upper extremity contracted chronically lower extremities contracted) Neurologic Exam: alert, spinneret cleaner II-XII nml as tested Skin Exam: normal color, warm, dry, No rash SpO2 Interpretation: normal - Course Nursing assessment & vital signs reviewed: Yes - CT Exams Abdomen/Pelvis CT Interpretation: Tele-radiologist Report (CT abdomen and pelvis: Impression 1. Markedly redundant colon with a sigmoid extending into the right upper quadrant. A sigmoid volvulus cannot be entirely excluded. Clinical correlation and further evaluation recommended as indicated 2. Abundant fecal material in colon which may represent constipation. Fecal impaction at the rectosigmoid cannot be excluded. 3. Large umbilical hernia containing multiple loops of small bowel without evidence of obstruction.) Ordered Tests: Active Orders 24 hr Category Date Time Status IV Insertion STAT Care 11/07/18 21:58 Active ABDOMEN AND PELVIS W/0 CONTRAS [CT] Stat Exams 11/07/18 22:04 Taken AMYLASE Stat Lab 11/07/18 22:53 Completed CBC W DIFF Stat Lab 11/07/18 22:53 Completed CMP Stat Lab 11/07/18 22:53 Completed CULTURE,URINE Stat Lab 11/07/18 23:38 Received LIPASE Stat Lab 11/07/18 22:53 Completed UA W/RFX UR CULTURE Stat Lab 11/07/18 23:38 Completed Medication Summary Generic Name Dose Route Start Last Admin Trade Name Freq PRN Reason Stop Dose Admin Sodium Chloride 1,000 mls @ 100 mls/hr 11/07/18 22:00 11/07/18 22:54 Sodium Chloride 0.9% 1000 Ml IV 12/07/18 21:59 100 mls/hr .Q10H RADHA Administration Discontinued Medications Generic Name Dose Route Start Last Admin Trade Name Wallace PRN Reason Stop Dose Admin Morphine Sulfate 2 mg 11/08/18 01:17 11/08/18 01:32 Morphine Sulfate 2 Mg Inj IV 11/08/18 01:18 2 mg STAT ONE Administration Morphine Sulfate Confirm 11/08/18 01:29 Morphine Sulfate 2 Mg Inj Administered 11/08/18 01:30 Dose 2 mg .ROUTE .STK-MED ONE Ondansetron HCl 4 mg 11/08/18 01:17 11/08/18 01:32 Zofran 4 Mg/2 Ml Vial IV 11/08/18 01:18 4 mg STAT ONE Administration Ondansetron HCl Confirm 11/08/18 01:29 Zofran 4 Mg/2 Ml Vial Administered 11/08/18 01:30 Dose 4 mg .ROUTE .STK-MED ONE Lab/Rad Data: Laboratory Result Diagrams 11/07/18 22:53 11/07/18 22:53 Laboratory Results 11/07/18 11/07/18 11/07/18 Range/Units 23:38 22:53 22:53 WBC 6.0 (4.0-10.5) K/mm3 RBC 4.12 (4.1-5.6) M/mm3 Hgb 14.2 (12.5-18.0) gm/dl Hct 41.1 L (42-50) % MCV 99.8 (78-100) fl MCH 34.5 H (26-32) pg MCHC 34.5 (32-36) g/dl RDW 12.5 (11.5-14.0) % Plt Count 169 (150-450) K/mm3 MPV 10.9 H (6-9.5) fl Gran % 60.3 (36.0-66.0) % Eos # (Auto) 0.10 (0-0.5) Absolute Lymphs (auto) 1.59 (1.0-4.6) Absolute Monos (auto) 0.68 (0.0-1.3) Lymphocytes % 26.5 (24.0-44.0) % Monocytes % 11.3 (0.0-12.0) % Eosinophils % 1.7 (0.00-5.0) % Basophils % 0.2 (0.0-0.4) % Absolute Granulocytes 3.63 (1.4-6.9) Basophils # 0.01 (0-0.4) Sodium 137 (137-145) mmol/L Potassium 4.3 (3.5-5.1) mmol/L Chloride 102 (98-107) mmol/L Carbon Dioxide 25 (22-30) mmol/L Anion Gap 13.8 (5-15) MEQ/L BUN 24 H (9-20) mg/dL Creatinine 0.43 L (0.66-1.25) mg/dL Estimated GFR > 60.0 ML/MIN Glucose 98 (74-106) mg/dL Calcium 9.6 (8.4-10.2) mg/dL Total Bilirubin 0.40 (0.2-1.3) mg/dL AST 27 (17-59) U/L ALT 27 (0-50) U/L Alkaline Phosphatase 66 (38-126) U/L Serum Total Protein 7.6 (6.3-8.2) g/dL Albumin 4.2 (3.5-5.0) g/dL Amylase 87 (30-110) U/L Lipase 131 (23-300) U/L Urine Color YELLOW (YELLOW) Urine Appearance SLIGHTLY CLOUDY (CLEAR) Urine pH 6.0 (5-6) Ur Specific [place] 1.023 (1.005-1.025) Urine Protein NEGATIVE (Negative) Urine Ketones TRACE (NEGATIVE) Urine Blood NEGATIVE (0-5) Donis/ul Urine Nitrite NEGATIVE (NEGATIVE) Urine Bilirubin NEGATIVE (NEGATIVE) Urine Urobilinogen NEGATIVE (0-1) mg/dL Ur Leukocyte Esterase NEGATIVE (NEGATIVE) Urine WBC (Auto) 3-5 (0-5) /HPF Urine RBC (Auto) 0-2 (0-2) /HPF U Epithel Cells (Auto) NONE (FEW) /HPF Urine Bacteria (Auto) NONE (NEGATIVE) /HPF Urine Mucus (Auto) SLIGHT (NEGATIVE) /HPF Urine Culture Reflexed ORDERED SEPARATELY (NO) Urine Glucose NEGATIVE (NEGATIVE) mg/dL - Progress Progress: improved Progress Note: 11/08/18 00:08 This is a 63-year-old white male with history of hydrocephaly which appears to have chronically contracted left upper extremity lower extremities and is aphasic. He arrives with complaint of a no bowel movement for 5 days she arrives with a distended abdomen also obvious umbilical hernia which appears to be soft. The patient resists examination however he does have positive bowel sounds his abdomen is distended mildly soft. Patient's vitals are stable. CBC white blood cell 6.0 hemoglobin 14.2 hematocrit 41.1 platelets 169 Chemistry essentially normal urinalysis essentially normal. Unfortunately patient's CT of the abdomen remarkable for a mildly redundant colon of the sigmoid extending into the right upper quadrant sigmoid volvulus cannot be entirely excluded patient with a 1 been fecal material in the colon which may represent constipation fecal impaction at the rectosigmoid cannot be excluded There is a large umbilical hernia containing multiple loops of small bowel without evidence of obstruction. Patient's rectal patient has soft stool I do not feel hard impaction. I've discussed the patient's case with Dr. Brink at [facility] he has accepted the patient for transfer he states he will call and arranged a bed for transfer. Impression 1 constipation 2 rule out sigmoid volvulus. - Departure Departure Disposition: Transfer ([facility] Dr. Brink) Clinical Impression: rule out sigmoid volvulus Constipation Qualifiers: Constipation type: unspecified constipation type Qualified Code(s): K59.00 - Constipation, unspecified Condition: Fair Critical Care Time: No Referrals: CINDY HAMILTON MD [Primary Care Provider] -
[2018-11-07] MEDS ORDERED: Sodium Chloride 0.9% 1000 ML 1,000 ML ONE (22:52)
[2018-11-07 23:00] LABS: BASOPHIL % 0.2 % (0.0-0.4); Basophil (Absolute #) 0.01 (0-0.4); Eosinophil % 1.7 % (0.00-5.0); Granulocyte Absolute (ANC) 3.63 (1.4-6.9); Granulocytes % 60.3 % (36.0-66.0); Hematocrit 41.1 % (42-50); Hemoglobin 14.2 gm/dl (12.5-18.0); Lymphocyte (Absolute #) 1.59 (1.0-4.6); Lymphocytes % 26.5 % (24.0-44.0); Mean Cell Volume 99.8 fl (78-100); Mean Corpuscular Hemoglobin 34.5 pg (26-32); Mean Corpuscular Hgb Concent. 34.5 g/dl (32-36); Mean Platelet Volume 10.9 fl (6-9.5); Monocyte (Absolute #) 0.68 (0.0-1.3); Monocytes % 11.3 % (0.0-12.0); Platelet Count 169 K/mm3 (150-450); Red Blood Count 4.12 M/mm3 (4.1-5.6); Red Cell Distribution Width 12.5 % (11.5-14.0)
[2018-11-07 23:08] LABS: ALBUMIN 4.2 g/dL (3.5-5.0); ALKALINE PHOSPHATASE 66 U/L (38-126); AMYLASE 87 U/L (30-110); ANION GAP 13.8 MEQ/L (5-15); BLOOD UREA NITROGEN 24 mg/dL (9-20); CHLORIDE 102 mmol/L (98-107); Calcium 9.6 mg/dL (8.4-10.2); Carbon Dioxide 25 mmol/L (22-30); Creatinine 1 0.43 mg/dL (0.66-1.25); Glucose 98 mg/dL (74-106); LIPASE 131 U/L (23-300); Potassium 4.3 mmol/L (3.5-5.1); SGOT/AST 27 U/L (17-59); SGPT/ALT 27 U/L (0-50); SODIUM 137 mmol/L (137-145); Total Protein 7.6 g/dL (6.3-8.2)
[2018-11-07 23:46] LABS: Appearance SLIGHTLY CLOUDY (CLEAR); Bilirubin NEGATIVE (NEGATIVE); Blood NEGATIVE Ery/ul (0-5); Glucose NEGATIVE (NEGATIVE); Ketones TRACE (NEGATIVE); Leukocyte Esterase NEGATIVE (NEGATIVE); Mucus SLIGHT /HPF (NEGATIVE); Nitrite NEGATIVE (NEGATIVE); Protein,Urine Dip NEGATIVE (Negative); RBC 0-2 /HPF (0-2); Specific Gravity 1.023 (1.005-1.025); Urobilinogen NEGATIVE mg/dL (0-1)
[2018-11-08] MEDS ORDERED: MORPHINE SULFATE 2 MG INJ IV ONE (01:17)
[2018-11-08] MEDS ORDERED: Zofran 4 MG/2 ML VIAL IV ONE (01:17)
[2018-11-08] MEDS ORDERED: MORPHINE SULFATE 2 MG INJ ONE (01:29)
[2018-11-08] MEDS ORDERED: Zofran 4 MG/2 ML VIAL ONE (01:29)
[2018-11-08 01:40] VITALS: BP 117/68
[2018-11-08 02:43] VITALS: PULSE 89; O2SAT 95
--- NOTE | 2018-11-08 09:21 | XRAY ---
Indication: Abdomen distention. Constipation 6 days. Urinary retention. Multiple contiguous axial images obtained through the abdomen and pelvis without contrast as ordered. Comparison: None Study slightly degraded by respiration artifact. Lung bases demonstrates minimal bibasilar atelectasis/scarring. No consolidation or effusion. Heart is not enlarged. PEG tube in situ with balloon tip in the gastric lumen. Noncontrasted stomach and bowel loops appear nonobstructed. Normal appendix. Mild diffuse scattered colonic fecal debris throughout with large rectal impaction. No free fluid/air. Moderate-sized umbilical hernia with herniated omental fat and loop of small bowel. No evidence for obstruction/incarceration. Absent right kidney. Left kidney demonstrates a few cortical cysts, largest 2.7 cm mid pole. Remaining liver, gallbladder, pancreas, spleen, adrenal glands, left ureter, bladder, and aorta appear unremarkable for noncontrast exam. Osseous structures demonstrates moderate double curvature scoliosis and remote-appearing T12 anterior wedging deformity. Impression: 1. Respiration artifact. 2. Mild diffuse fecal stasis with large rectal impaction. 3. Umbilical hernia with herniated omental fat and small bowel. No complications. 3. Incidental PEG tube in situ, absent right kidney, and left renal cysts. Comment: Preliminary interpretation was made by [facility]. No critical discrepancy. CTDI 21.52
== END 2018-11-08 03:08 | disposition short-term general hospital (02) ==
LOC: ED 21:46
DX: K59.00 Constipation, unspecified (principal); Z79.899 Other long term (current) drug therapy
CPT/HCPCS: 36000; 36415; 74176; 80053; 81001; 82150; 83690; 85025; 87086; 96360; 96361; 96374; 96375; 99285; J2270; J2405

== ENCOUNTER 2018-11-16 23:46 | Emergency (ER) | payer MEDICARE ==
--- NOTE | 2018-11-17 00:10 | ERPHSYRPT ---
- History of Present Illness Time Seen by Provider: 11/16/18 23:58 Source: EMS Exam Limitations: physical impairment Patient Subjective Stated Complaint: pt hasn't urinated x9 hours Triage Nursing Assessment: lungs coarse throughout, heart tones reg, abd soft with active bs x4 quad. pt is special needs, unable to urinate x9 hrs. 16 FR f /c anchored with 200 straw colored urine returned. Physician History: Pt is nonverbal, sent from a shelter, he did not urinate for 9 hours, incontinent, wears diaper. No report of fever, vomiting, other complaints. He had similar problems multiple times, he has spina bifida, bedridden, with contracted extremities. Timing/Duration: hour(s) (9) Activites at Onset: none Severity of Pain-Max: none Severity of Pain-Current: none Associated Symptoms: denies symptoms Prior abdominal problems: similar symptoms Sexual intercourse history: non-contributory Allergies/Adverse Reactions: amoxicillin [From Augmentin] Allergy (Unknown, Verified 08/27/18 10:23) unknown cefazedone Allergy (Unknown, Verified 08/27/18 10:23) unknown clavulanic acid [From Augmentin] Allergy (Unknown, Verified 08/27/18 10:23) unknown codeine Allergy (Unknown, Verified 08/27/18 10:23) unknown Sulfa (Sulfonamide Antibiotics) Allergy (Unknown, Verified 08/27/18 10:23) unknown zinc oxide Allergy (Unknown, Verified 08/27/18 10:23) unknown cefepime Adverse Reaction (Unknown, Verified 08/27/18 10:23) Rash Penicillins Adverse Reaction (Unknown, Verified 08/27/18 10:23) unknown Home Medications: Lisinopril 20 mg [Zestril 20 MG] 20 mg PEG DAILY 02/09/17 [History] Phenobarbital 20 mg/5 ml [Phenobarbital 20 mg/5 ml Elixir] 15 ml PEG DAILY 02/09/17 [History] Valproic Acid 250 mg/5 ml [Depakene 250 MG/5 ML Syrup] 15 ml PEG BID 02/09 [History] Travoprost (Benzalkonium) [Travatan 0.004% Eye Drop] 5 ml OP DAILY 12/13/17 [ History] Carbamide Peroxide [Debrox] 15 ml OT DIRECTIONS UNKNOWN 09/23/17 [History] Amlodipine Besylate 10 mg [Norvasc 10 MG] 10 mg PEG DAILY 09/28/17 [History] Tizanidine HCl 8 mg PEG DAILY 11/17/18 [History] Hx Tetanus, Diphtheria Vaccination/Date Given: Yes Hx Influenza Vaccination/Date Given: Yes Hx Pneumococcal Vaccination/Date Given: No Immunizations Up to Date: Yes - Past Medical History Pertinent Past Medical History: Yes Neurological History: Seizures ENT History: Glaucoma Cardiac History: Hypertension Respiratory History: Pneumonia Endocrine Medical History: No Pertinent History Musculoskeletal History: Other GI Medical History: Other History: Other Psycho-Social History: No Pertinent History Male Reproductive Disorders: Other Other Medical History: HYDROCEPHALUS, ANEMIA, htn,GLAUCOMA, BRONCHITIS, incontinence , wheelchair, feeding tube, urinary retention. unable to update, used recall for hx - Past Surgical History Past Surgical History: Yes Neuro Surgical History: Brain Shunt Cardiac: No Pertinent History Respiratory: No Pertinent History Gastrointestinal: No Pertinent History Genitourinary: No Pertinent History Musculoskeletal: Other Male Surgical History: No Pertinent History Other Surgical History: SHUNT TO HEAD, peg feeding tube placed and replaced - Social History Smoking Status: Never smoker Exposure to second hand smoke: No Alcohol Use: None Drug Use: none Patient Lives Alone: No (per client care consultant) Significant Family History: no pertinent family hx - Review of Systems All Other Systems: Unable due to condition - Nursing Vital Signs Nursing Vital Signs: Initial Vital Signs Temperature 97.9 F 11/16/18 23:56 Pulse Rate 79 11/16/18 23:56 Respiratory Rate 20 11/16/18 23:56 Blood Pressure 100/68 11/16/18 23:56 O2 Sat by Pulse Oximetry 97 11/16/18 23:56 Pain Scale Pain Intensity 0 - Physical Exam General Appearance: no apparent distress Eye Exam: eyes nml inspection Ears, Nose, Throat Exam: moist mucous membranes Neck Exam: normal inspection, supple, No JVD, No lymphadenopathy Respiratory Exam: rhonchi (few, bilateral) Cardiovascular Exam: regular rate/rhythm, normal heart sounds, No murmur Gastrointestinal/Abdomen Exam: soft, No distention, No mass, No guarding Male Genital Exam: normal genitalia Back Exam: normal inspection Extremity Exam: other (contractures, spastic muscles on both sides) Neurologic Exam: other (chronic mental condition due to hydrocephalus, nonverbal , alert) Skin Exam: normal color, warm, dry, No rash Lymphatic Exam: No adenopathy SpO2 Interpretation: normal SpO2: 97 O2 Delivery: Room Air - Course Nursing assessment & vital signs reviewed: Yes Ordered Tests: Active Orders 24 hr Category Date Time Status Hernández [Catheter-[place] Hernández] STAT Care 11/17/18 00:21 Active CBC W DIFF Stat Lab 11/17/18 00:19 Completed CMP Stat Lab 11/17/18 00:19 Completed CULTURE,URINE Stat Lab 11/17/18 00:22 Received UA W/RFX UR CULTURE Stat Lab 11/17/18 00:22 Completed Medication Summary Discontinued Medications Generic Name Dose Route Start Last Admin Trade Name Freq PRN Reason Stop Dose Admin Nitrofurantoin Macrocrystals 100 mg 11/17/18 00:58 Macrobid 100mg Capsule PO 11/17/18 00:59 STAT ONE Lab/Rad Data: Laboratory Result Diagrams 11/17/18 00:19 11/17/18 00:19 Laboratory Results 11/17/18 11/17/18 11/17/18 Range/Units 00:22 00:19 00:19 WBC 5.5 (4.0-10.5) K/mm3 RBC 3.65 L (4.1-5.6) M/mm3 Hgb 12.9 (12.5-18.0) gm/dl Hct 37.3 L (42-50) % MCV 102.2 H (78-100) fl MCH 35.3 H (26-32) pg MCHC 34.6 (32-36) g/dl RDW 12.6 (11.5-14.0) % Plt Count 167 (150-450) K/mm3 MPV 10.9 H (6-9.5) fl Gran % 59.2 (36.0-66.0) % Eos # (Auto) 0.13 (0-0.5) Absolute Lymphs (auto) 1.43 (1.0-4.6) Absolute Monos (auto) 0.67 (0.0-1.3) Lymphocytes % 26.0 (24.0-44.0) % Monocytes % 12.2 H (0.0-12.0) % Eosinophils % 2.4 (0.00-5.0) % Basophils % 0.2 (0.0-0.4) % Absolute Granulocytes 3.25 (1.4-6.9) Basophils # 0.01 (0-0.4) Sodium 136 L (137-145) mmol/L Potassium 4.2 (3.5-5.1) mmol/L Chloride 99 (98-107) mmol/L Carbon Dioxide 27 (22-30) mmol/L Anion Gap 14.9 (5-15) MEQ/L BUN 26 H (9-20) mg/dL Creatinine 0.52 L (0.66-1.25) mg/dL Estimated GFR > 60.0 ML/MIN Glucose 81 (74-106) mg/dL Calcium 9.1 (8.4-10.2) mg/dL Total Bilirubin 0.40 (0.2-1.3) mg/dL AST 23 (17-59) U/L ALT 25 (0-50) U/L Alkaline Phosphatase 54 (38-126) U/L Serum Total Protein 7.0 (6.3-8.2) g/dL Albumin 3.7 (3.5-5.0) g/dL Urine Color KATHY (YELLOW) Urine Appearance SLIGHTLY CLOUDY (CLEAR) Urine pH 5.0 (5-6) Ur Specific [place] 1.024 (1.005-1.025) Urine Protein 30 (Negative) Urine Ketones TRACE (NEGATIVE) Urine Blood NEGATIVE (0-5) Donis/ul Urine Nitrite NEGATIVE (NEGATIVE) Urine Bilirubin NEGATIVE (NEGATIVE) Urine Urobilinogen NEGATIVE (0-1) mg/dL Ur Leukocyte Esterase TRACE (NEGATIVE) Urine WBC (Auto) 3-5 (0-5) /HPF Urine RBC (Auto) 0-2 (0-2) /HPF U Epithel Cells (Auto) RARE (FEW) /HPF Urine Bacteria (Auto) RARE (NEGATIVE) /HPF Urine Mucus (Auto) SLIGHT (NEGATIVE) /HPF Urine Culture Reflexed ORDERED SEPARATELY (NO) Urine Glucose NEGATIVE (NEGATIVE) mg/dL - Progress Progress: improved Progress Note: 11/17/18 01:03 Hernández catheter inserted, drained 100 ml dark urine, sent for cultures, he is started on PO Macrobid, and discharged home with instructions given to his grain manager to continue oral hydration and follow up with urologist in 1 week. Counseled pt/family regarding: lab results, diagnosis, need for follow-up - Departure Departure Disposition: Home Clinical Impression: Urinary retention UTI (urinary tract infection) Qualifiers: Urinary tract infection type: site unspecified Hematuria presence: without hematuria Qualified Code(s): N39.0 - Urinary tract infection, site not specified Condition: Stable Critical Care Time: No Referrals: CINDY HAMILTON MD [Primary Care Provider] - Instructions: Urinary Retention (DC), Urinary Tract Infection, Adult (DC) Additional Instructions: Continue oral hydration and follow up with his physicina in 2-3 days, return if severe pain, vomiting, fever> 102 F! Prescriptions: Nitrofurantoin Monohyd/M-Cryst [Macrobid 100 mg Capsule] 100 mg PO BID #20 capsule
[2018-11-17 00:22] LABS: BASOPHIL % 0.2 % (0.0-0.4); Basophil (Absolute #) 0.01 (0-0.4); Eosinophil % 2.4 % (0.00-5.0); Eosinophil (Absolute #) 0.13 (0-0.5); Granulocyte Absolute (ANC) 3.25 (1.4-6.9); Granulocytes % 59.2 % (36.0-66.0); Hematocrit 37.3 % (42-50); Hemoglobin 12.9 gm/dl (12.5-18.0); Lymphocyte (Absolute #) 1.43 (1.0-4.6); Mean Cell Volume 102.2 fl (78-100); Mean Corpuscular Hemoglobin 35.3 pg (26-32); Mean Corpuscular Hgb Concent. 34.6 g/dl (32-36); Mean Platelet Volume 10.9 fl (6-9.5); Monocyte (Absolute #) 0.67 (0.0-1.3); Monocytes % 12.2 % (0.0-12.0); Platelet Count 167 K/mm3 (150-450); Red Blood Count 3.65 M/mm3 (4.1-5.6); Red Cell Distribution Width 12.6 % (11.5-14.0); White Blood Count 5.5 K/mm3 (4.0-10.5)
[2018-11-17 00:41] LABS: Appearance SLIGHTLY CLOUDY (CLEAR); Bacteria RARE /HPF (NEGATIVE); Bilirubin NEGATIVE (NEGATIVE); Blood NEGATIVE Ery/ul (0-5); Epithelial Cells RARE /HPF (FEW); Glucose NEGATIVE (NEGATIVE); Ketones TRACE (NEGATIVE); Leukocyte Esterase TRACE (NEGATIVE); Mucus SLIGHT /HPF (NEGATIVE); Nitrite NEGATIVE (NEGATIVE); Protein,Urine Dip 30 (Negative); RBC 0-2 /HPF (0-2); Specific Gravity 1.024 (1.005-1.025); Urobilinogen NEGATIVE mg/dL (0-1)
[2018-11-17 00:42] LABS: ALBUMIN 3.7 g/dL (3.5-5.0); ALKALINE PHOSPHATASE 54 U/L (38-126); ANION GAP 14.9 MEQ/L (5-15); BLOOD UREA NITROGEN 26 mg/dL (9-20); CHLORIDE 99 mmol/L (98-107); Calcium 9.1 mg/dL (8.4-10.2); Carbon Dioxide 27 mmol/L (22-30); Creatinine 1 0.52 mg/dL (0.66-1.25); Glucose 81 mg/dL (74-106); Potassium 4.2 mmol/L (3.5-5.1); SGOT/AST 23 U/L (17-59); SGPT/ALT 25 U/L (0-50); SODIUM 136 mmol/L (137-145)
[2018-11-17] MEDS ORDERED: Macrobid 100MG Capsule PO ONE (00:58)
[2018-11-17] MEDS ORDERED: Macrobid 100MG Capsule ONE (01:03)
[2018-11-17 01:39] VITALS: BP 97/69; PULSE 79; O2SAT 98
== END 2018-11-17 02:13 | disposition home or self-care (01) ==
LOC: ED 23:46
DX: R33.9 Retention of urine, unspecified (principal); N39.0 Urinary tract infection, site not specified; I10 Essential (primary) hypertension; G40.909 Epilepsy, unspecified, not intractable, without status epilepticus; Z79.899 Other long term (current) drug therapy
CPT/HCPCS: 36415; 51702; 80053; 81001; 85025; 87086; 99284; A9270-GY

== ENCOUNTER 2018-12-04 01:25 | Emergency (ER) | payer MEDICARE ==
[2018-12-04 01:50] VITALS: O2SAT 98
[2018-12-04] MEDS ORDERED: Sodium Chloride 0.9% 1000 ML 1,000 ML IV SCH (02:15)
[2018-12-04 02:22] LABS: BASOPHIL % 0.3 % (0.0-0.4); Basophil (Absolute #) 0.02 (0-0.4); Eosinophil % 2.2 % (0.00-5.0); Eosinophil (Absolute #) 0.17 (0-0.5); Granulocyte Absolute (ANC) 5.29 (1.4-6.9); Granulocytes % 67.3 % (36.0-66.0); Hematocrit 38.2 % (42-50); Hemoglobin 12.3 gm/dl (12.5-18.0); Lymphocyte (Absolute #) 1.69 (1.0-4.6); Lymphocytes % 21.5 % (24.0-44.0); Mean Cell Volume 107.9 fl (78-100); Mean Corpuscular Hemoglobin 34.7 pg (26-32); Mean Corpuscular Hgb Concent. 32.2 g/dl (32-36); Mean Platelet Volume 10.5 fl (6-9.5); Monocyte (Absolute #) 0.68 (0.0-1.3); Monocytes % 8.7 % (0.0-12.0); Platelet Count 282 K/mm3 (150-450); Red Blood Count 3.54 M/mm3 (4.1-5.6); Red Cell Distribution Width 12.7 % (11.5-14.0); White Blood Count 7.9 K/mm3 (4.0-10.5)
[2018-12-04] MEDS ORDERED: Sodium Chloride 0.9% 500 ML 500 ML IV ONE (02:22)
[2018-12-04 02:24] LABS: Lactic Acid 2.3 (0.4-2.0)
[2018-12-04 02:31] LABS: INR 1.24 (0.8-3.0); PROTIME 14.4 SECONDS (8.83-12.87)
[2018-12-04 02:43] LABS: ANION GAP 12.8 MEQ/L (5-15); BLOOD UREA NITROGEN 53 mg/dL (9-20); CHLORIDE 110 mmol/L (98-107); Calcium 8.9 mg/dL (8.4-10.2); Carbon Dioxide 28 mmol/L (22-30); Creatinine 1 0.61 mg/dL (0.66-1.25); Glucose 124 mg/dL (74-106); NT PRO BNP 72.8 pg/mL (0-900); Potassium 4.6 mmol/L (3.5-5.1); SODIUM 146 mmol/L (137-145)
[2018-12-04 03:29] LABS: Appearance SLIGHTLY CLOUDY (CLEAR); Bilirubin NEGATIVE (NEGATIVE); Blood NEGATIVE Ery/ul (0-5); Glucose NEGATIVE (NEGATIVE); Hyaline Casts 0-2 /LPF (0-2); Ketones TRACE (NEGATIVE); Leukocyte Esterase TRACE (NEGATIVE); Mucus SLIGHT /HPF (NEGATIVE); Nitrite NEGATIVE (NEGATIVE); Protein,Urine Dip 30 (Negative); RBC 0-2 /HPF (0-2); Specific Gravity 1.023 (1.005-1.025); Urobilinogen NEGATIVE mg/dL (0-1)
--- NOTE | 2018-12-04 03:41 | ERPHSYRPT ---
- History of Present Illness Time Seen by Provider: 12/04/18 01:44 Source: family Exam Limitations: clinical condition Patient Subjective Stated Complaint: pt is alert and oriented. pt is non ambulatory and nonverbal. pt design architect states that she noticed earlier tonight that he was pale and cool and more limp when they changed his shirt, design architect states that she took his bp and it was 68/52 and oxygen was 74%. pt comes in via ambulance for hypotension and low O2. pt is 98% on 2L. pt drops to 96% when on RA. pt unable to answer questions. pt lung sounds diminished. pt bowel sounds present. pt bp is currently 99/63. pt has a PEG tube in place. hernia noted over LLQ. pt skin is pale and warm. pt will alert to verbal stimuli and follow simple commands. Triage Nursing Assessment: see above Physician History: PATIENT WITH A HISTORY OF SEVERE MENTAL RETARDATION, SEIZURE DISORDER, HYPERTENSION AND HYDROCEPHALUS IS NONVERBAL, LIVES IN A SENIOR CARE, RECEIVES TUBE FEEDINGS, FOUND BY STAFF HYPOTENSIVE SBP 60, PALE IN COLOR AND DIAPHORETIC. DENIES HISTORY OF VOMITING, FEVER, COUGH OR DIARRHEA. Timing/Duration: today Severity: moderate Associated Symptoms: diaphoresis, other (APPEARS PALE) Allergies/Adverse Reactions: amoxicillin [From Augmentin] Allergy (Unknown, Verified 08/27/18 10:23) unknown cefazedone Allergy (Unknown, Verified 08/27/18 10:23) unknown clavulanic acid [From Augmentin] Allergy (Unknown, Verified 08/27/18 10:23) unknown codeine Allergy (Unknown, Verified 08/27/18 10:23) unknown Sulfa (Sulfonamide Antibiotics) Allergy (Unknown, Verified 08/27/18 10:23) unknown zinc oxide Allergy (Unknown, Verified 08/27/18 10:23) unknown cefepime Adverse Reaction (Unknown, Verified 08/27/18 10:23) Rash Penicillins Adverse Reaction (Unknown, Verified 08/27/18 10:23) unknown Home Medications: Lisinopril 20 mg [Zestril 20 MG] 20 mg PEG DAILY 02/09/17 [History] Phenobarbital 20 mg/5 ml [Phenobarbital 20 mg/5 ml Elixir] 15 ml PEG DAILY 02/09/17 [History] Valproic Acid 250 mg/5 ml [Depakene 250 MG/5 ML Syrup] 15 ml PEG BID 02/09 [History] Travoprost (Benzalkonium) [Travatan 0.004% Eye Drop] 5 ml OP DAILY 06/10/17 [ History] Carbamide Peroxide [Debrox] 15 ml OT DIRECTIONS UNKNOWN 09/23/17 [History] Amlodipine Besylate 10 mg [Norvasc 10 MG] 10 mg PEG DAILY 09/28/17 [History] Tizanidine HCl 8 mg PEG DAILY 11/17/18 [History] Hx Tetanus, Diphtheria Vaccination/Date Given: Yes Hx Influenza Vaccination/Date Given: Yes Hx Pneumococcal Vaccination/Date Given: No Immunizations Up to Date: Yes - Review of Systems Constitutional: No Fever, No Chills Eyes: No Symptoms Ears, Nose, & Throat: No Symptoms Respiratory: No Symptoms, No Cough, No Dyspnea Cardiac: Other (DIAPHORESIS), No Chest Pain, No Edema, No Syncope Abdominal/Gastrointestinal: No Symptoms, No Abdominal Pain, No Nausea, No Vomiting, No Diarrhea Genitourinary Symptoms: No Symptoms, No Dysuria Musculoskeletal: No Symptoms, No Back Pain, No Neck Pain Skin: Other (APPEARS PALE), No Rash Neurological: No Dizziness, No Focal Weakness, No Sensory Changes Psychological: No Symptoms Endocrine: No Symptoms All Other Systems: Reviewed and Negative - Past Medical History Pertinent Past Medical History: Yes Neurological History: Seizures ENT History: Glaucoma Cardiac History: Hypertension Respiratory History: Pneumonia Endocrine Medical History: No Pertinent History Musculoskeletal History: Other GI Medical History: Other History: Other Psycho-Social History: No Pertinent History Male Reproductive Disorders: Other Other Medical History: HYDROCEPHALUS, ANEMIA, htn,GLAUCOMA, BRONCHITIS, incontinence , wheelchair, feeding tube, urinary retention. 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: No (per life care planner) Significant Family History: no pertinent family hx - Nursing Vital Signs Nursing Vital Signs: Initial Vital Signs Temperature 97.6 F 06/08/19 01:36 Pulse Rate 78 12/04/18 01:36 Respiratory Rate 18 12/04/18 01:36 Blood Pressure 99/63 12/04/18 01:36 O2 Sat by Pulse Oximetry 98 12/04/18 01:36 - Physical Exam General Appearance: no apparent distress Eye Exam: PERRL/EOMI Ears, Nose, Throat Exam: moist mucous membranes Neck Exam: normal inspection Respiratory Exam: normal breath sounds Cardiovascular Exam: regular rate/rhythm, normal heart sounds Gastrointestinal/Abdomen Exam: soft, normal bowel sounds Back Exam: normal inspection Extremity Exam: normal inspection, other (CONTRACTURE, PULSES 2+) Neurologic Exam: other (NONRESPONSIVE TO VERBAL STIMULI) Skin Exam: warm SpO2 Interpretation: normal SpO2: 98 O2 Delivery: Room Air - Course EKG Interpreted by Me: RATE, Sinus Rhythm, NORMAL AXIS Ordered Tests: Medication Summary Discontinued Medications Generic Name Dose Route Start Last Admin Trade Name Freq PRN Reason Stop Dose Admin Sodium Chloride 1,000 mls @ 500 mls/hr 12/04/18 02:15 12/04/18 02:25 Sodium Chloride 0.9% 1000 Ml IV 01/03/19 02:14 500 mls/hr .Q2H RADHA Administration Sodium Chloride Confirm 12/04/18 02:22 Sodium Chloride 0.9% 500 Ml Administered 12/04/18 02:23 Dose 500 mls @ ud IV .STK-MED ONE Lab/Rad Data: Laboratory Result Diagrams 12/04/18 02:19 12/04/18 02:19 Laboratory Results 12/04/18 12/04/18 12/04/18 Range/Units Unknown 02:19 02:19 WBC (4.0-10.5) K/mm3 RBC (4.1-5.6) M/mm3 Hgb (12.5-18.0) gm/dl Hct (42-50) % MCV (78-100) fl MCH (26-32) pg MCHC (32-36) g/dl RDW (11.5-14.0) % Plt Count (150-450) K/mm3 MPV (6-9.5) fl Gran % (36.0-66.0) % Eos # (Auto) (0-0.5) Absolute Lymphs (auto) (1.0-4.6) Absolute Monos (auto) (0.0-1.3) Lymphocytes % (24.0-44.0) % Monocytes % (0.0-12.0) % Eosinophils % (0.00-5.0) % Basophils % (0.0-0.4) % Absolute Granulocytes (1.4-6.9) Basophils # (0-0.4) PT 14.4 H (8.83-12.87) SECONDS INR 1.24 (0.8-3.0) Sodium (137-145) mmol/L Potassium (3.5-5.1) mmol/L Chloride (98-107) mmol/L Carbon Dioxide (22-30) mmol/L Anion Gap (5-15) MEQ/L BUN (9-20) mg/dL Creatinine (0.66-1.25) mg/dL Estimated GFR ML/MIN Glucose (74-106) mg/dL Lactic Acid (0.4-2.0) Calcium (8.4-10.2) mg/dL Troponin I (0.000-0.034) ng/mL NT-Pro-B Natriuret Pep (0-900) pg/mL Urine Color (YELLOW) Urine Appearance (CLEAR) Urine pH (5-6) Ur Specific [place] (1.005-1.025) Urine Protein (Negative) Urine Ketones (NEGATIVE) Urine Blood (0-5) Donis/ul Urine Nitrite (NEGATIVE) Urine Bilirubin (NEGATIVE) Urine Urobilinogen (0-1) mg/dL Ur Leukocyte Esterase (NEGATIVE) Urine WBC (Auto) (0-5) /HPF Urine RBC (Auto) (0-2) /HPF U Hyaline Cast (Auto) (0-2) /LPF U Epithel Cells (Auto) (FEW) /HPF Urine Bacteria (Auto) (NEGATIVE) /HPF Other Casts (Auto) (NEGATIVE) /LPF Urine Mucus (Auto) (NEGATIVE) /HPF Urine Culture Reflexed (NO) Urine Glucose (NEGATIVE) mg/dL Valproic Acid 88.3 (50-100) ug/mL Phenobarbital 10.3 L (15.0-40.0) mcg/mL 12/04/18 12/04/18 12/04/18 Range/Units 02:19 02:19 02:15 WBC 7.9 (4.0-10.5) K/mm3 RBC 3.54 L (4.1-5.6) M/mm3 Hgb 12.3 L (12.5-18.0) gm/dl Hct 38.2 L (42-50) % MCV 107.9 H (78-100) fl MCH 34.7 H (26-32) pg MCHC 32.2 (32-36) g/dl RDW 12.7 (11.5-14.0) % Plt Count 282 (150-450) K/mm3 MPV 10.5 H (6-9.5) fl Gran % 67.3 H (36.0-66.0) % Eos # (Auto) 0.17 (0-0.5) Absolute Lymphs (auto) 1.69 (1.0-4.6) Absolute Monos (auto) 0.68 (0.0-1.3) Lymphocytes % 21.5 L (24.0-44.0) % Monocytes % 8.7 (0.0-12.0) % Eosinophils % 2.2 (0.00-5.0) % Basophils % 0.3 (0.0-0.4) % Absolute Granulocytes 5.29 (1.4-6.9) Basophils # 0.02 (0-0.4) PT (8.83-12.87) SECONDS INR (0.8-3.0) Sodium 146 H (137-145) mmol/L Potassium 4.6 (3.5-5.1) mmol/L Chloride 110 H (98-107) mmol/L Carbon Dioxide 28 (22-30) mmol/L Anion Gap 12.8 (5-15) MEQ/L BUN 53 H (9-20) mg/dL Creatinine 0.61 L (0.66-1.25) mg/dL Estimated GFR > 60.0 ML/MIN Glucose 124 H (74-106) mg/dL Lactic Acid 2.3 H (0.4-2.0) Calcium 8.9 (8.4-10.2) mg/dL Troponin I (0.000-0.034) ng/mL NT-Pro-B Natriuret Pep 72.8 (0-900) pg/mL Urine Color (YELLOW) Urine Appearance (CLEAR) Urine pH (5-6) Ur Specific [place] (1.005-1.025) Urine Protein (Negative) Urine Ketones (NEGATIVE) Urine Blood (0-5) Donis/ul Urine Nitrite (NEGATIVE) Urine Bilirubin (NEGATIVE) Urine Urobilinogen (0-1) mg/dL Ur Leukocyte Esterase (NEGATIVE) Urine WBC (Auto) (0-5) /HPF Urine RBC (Auto) (0-2) /HPF U Hyaline Cast (Auto) (0-2) /LPF U Epithel Cells (Auto) (FEW) /HPF Urine Bacteria (Auto) (NEGATIVE) /HPF Other Casts (Auto) (NEGATIVE) /LPF Urine Mucus (Auto) (NEGATIVE) /HPF Urine Culture Reflexed (NO) Urine Glucose (NEGATIVE) mg/dL Valproic Acid (50-100) ug/mL Phenobarbital (15.0-40.0) mcg/mL 12/04/18 12/04/18 Range/Units 02:15 02:05 WBC (4.0-10.5) K/mm3 RBC (4.1-5.6) M/mm3 Hgb (12.5-18.0) gm/dl Hct (42-50) % MCV (78-100) fl MCH (26-32) pg MCHC (32-36) g/dl RDW (11.5-14.0) % Plt Count (150-450) K/mm3 MPV (6-9.5) fl Gran % (36.0-66.0) % Eos # (Auto) (0-0.5) Absolute Lymphs (auto) (1.0-4.6) Absolute Monos (auto) (0.0-1.3) Lymphocytes % (24.0-44.0) % Monocytes % (0.0-12.0) % Eosinophils % (0.00-5.0) % Basophils % (0.0-0.4) % Absolute Granulocytes (1.4-6.9) Basophils # (0-0.4) PT (8.83-12.87) SECONDS INR (0.8-3.0) Sodium (137-145) mmol/L Potassium (3.5-5.1) mmol/L Chloride (98-107) mmol/L Carbon Dioxide (22-30) mmol/L Anion Gap (5-15) MEQ/L BUN (9-20) mg/dL Creatinine (0.66-1.25) mg/dL Estimated GFR ML/MIN Glucose (74-106) mg/dL Lactic Acid (0.4-2.0) Calcium (8.4-10.2) mg/dL Troponin I < 0.012 (0.000-0.034) ng/mL NT-Pro-B Natriuret Pep (0-900) pg/mL Urine Color KATHY (YELLOW) Urine Appearance SLIGHTLY CLOUDY (CLEAR) Urine pH 5.0 (5-6) Ur Specific [place] 1.023 (1.005-1.025) Urine Protein 30 (Negative) Urine Ketones TRACE (NEGATIVE) Urine Blood NEGATIVE (0-5) Donis/ul Urine Nitrite NEGATIVE (NEGATIVE) Urine Bilirubin NEGATIVE (NEGATIVE) Urine Urobilinogen NEGATIVE (0-1) mg/dL Ur Leukocyte Esterase TRACE (NEGATIVE) Urine WBC (Auto) NONE (0-5) /HPF Urine RBC (Auto) 0-2 (0-2) /HPF U Hyaline Cast (Auto) 0-2 (0-2) /LPF U Epithel Cells (Auto) NONE (FEW) /HPF Urine Bacteria (Auto) NONE (NEGATIVE) /HPF Other Casts (Auto) NEGATIVE (NEGATIVE) /LPF Urine Mucus (Auto) SLIGHT (NEGATIVE) /HPF Urine Culture Reflexed ORDERED SEPARATELY (NO) Urine Glucose NEGATIVE (NEGATIVE) mg/dL Valproic Acid (50-100) ug/mL Phenobarbital (15.0-40.0) mcg/mL - Progress Progress: improved Progress Note: 12/04/18 04:05 IV NORMAL SALINE 1500ML BOLUS OVER OVER 2.5 HOURS. BP IMPROVED TO 105/61, PATIENT VITAL SIGNS AND CHECKED ONCE WEEKLY, ALL LAB TEST REVIEWED AND ARE WITHIN NORMAL LIMITS WITH THE EXCEPTION OF LACTIC ACID 2.3, BUN 53, NA-146, CL - 110 WILL CONTINUE BP MEDICATION NORVASC 10 DAILY AND DECREASE LISINOPRIL 10MG DAILY 12/04/18 04:07 Counseled pt/family regarding: lab results, diagnosis, need for follow-up - Departure Departure Disposition: Home Clinical Impression: DEHYDRATION Condition: Stable Critical Care Time: No Referrals: CINDY HAMILTON MD [Primary Care Provider] - Instructions: Dehydration, Adult (DC) Additional Instructions: CONTINUE NORVASC 10 MG DAILY. DECREASE LISINOPRIL TO 10MG DAILY. CONTINUE ALL CURRENT MEDICATIONS
[2018-12-04 04:50] VITALS: BP 124/73; PULSE 83
--- NOTE | 2018-12-04 08:31 | XRAY ---
Indication: Fever and cough. Comparison: May 26, 2018. Portable chest again demonstrates mild right base infiltrate versus atelectasis with new lingula subsegmental atelectasis/scarring. Remaining heart and lungs unremarkable. Bony thorax intact again with mild osteopenia, degenerative changes, scoliosis, and right neck tubing.
== END 2018-12-04 05:16 | disposition home or self-care (01) ==
LOC: ED 01:25
DX: E86.0 Dehydration (principal); I95.9 Hypotension, unspecified; R61 Generalized hyperhidrosis; G40.909 Epilepsy, unspecified, not intractable, without status epilepticus; F72 Severe intellectual disabilities; G91.9 Hydrocephalus, unspecified; I10 Essential (primary) hypertension; Z93.1 Gastrostomy status; Z79.899 Other long term (current) drug therapy
CPT/HCPCS: 36000; 36415; 71045; 80048; 80164; 80184; 81001; 83605; 83880; 84484; 85025; 85610; 87040; 87086; 93005; 93041; 99284

== ENCOUNTER 2018-12-12 22:47 | Emergency (ER) | payer MEDICARE ==
[2018-12-12] MEDS ORDERED: Sodium Chloride 0.9% 500 ML 500 ML IV ONE ×2 (23:21→23:28)
--- NOTE | 2018-12-12 23:24 | ERPHSYRPT ---
- History of Present Illness Time Seen by Provider: 12/12/18 23:04 Source: other (checkroom chief) Exam Limitations: physical impairment Patient Subjective Stated Complaint: Hypotension Triage Nursing Assessment: Patient wheeled into ED via personal motorized chair with help at hospice/home health aide. Patient's acute care nurse practitioner states his blood pressure at home was 78/62 at 2230. Caregivers are advised to bring patient into ED if systolic is less than 100. Patient Alert to name only. Caregiver giving all of information. Patient sitting in wheelchair in no distress. Patient's lungs clear a/p samuel. Heart tones audible. Physician History: Pt was seen here 8 days ago with the same problem, his blood pressure was low. His checkroom chief was advised to cut his Lisinopril to half dose (10 mg daily). His physician changed it back to 20 mg daily. His blood pressure was low again today ( 78/62) tonight, checkroom chief denies any current complaints, except chronic constipation, patient is nonverbal due to his serious medical diseased ( progressed MS, severe mental; retardation, hydrocephalus, seizures) Timing/Duration: today Severity: mild Modifying Factors: Improves With: nothing Associated Symptoms: denies symptoms Allergies/Adverse Reactions: amoxicillin [From Augmentin] Allergy (Unknown, Verified 12/12/18 22:57) unknown cefazedone Allergy (Unknown, Verified 12/12/18 22:57) unknown clavulanic acid [From Augmentin] Allergy (Unknown, Verified 12/12/18 22:57) unknown codeine Allergy (Unknown, Verified 12/12/18 22:57) unknown Sulfa (Sulfonamide Antibiotics) Allergy (Unknown, Verified 12/12/18 22:57) unknown zinc oxide Allergy (Unknown, Verified 12/12/18 22:57) unknown cefepime Adverse Reaction (Unknown, Verified 12/12/18 22:57) Rash Penicillins Adverse Reaction (Unknown, Verified 12/12/18 22:57) unknown Home Medications: Lisinopril 20 mg [Zestril 20 MG] 20 mg PEG DAILY 02/09/17 [History] Phenobarbital 20 mg/5 ml [Phenobarbital 20 mg/5 ml Elixir] 15 ml PEG DAILY 02/09/17 [History] Valproic Acid 250 mg/5 ml [Depakene 250 MG/5 ML Syrup] 15 ml PEG BID 02/09 [History] Travoprost (Benzalkonium) [Travatan 0.004% Eye Drop] 5 ml OP DAILY 06/10/17 [ History] Carbamide Peroxide [Debrox] 15 ml OT DIRECTIONS UNKNOWN 09/23/17 [History] Amlodipine Besylate 10 mg [Norvasc 10 MG] 10 mg PEG DAILY 09/28/17 [History] Tizanidine HCl 8 mg PEG DAILY 11/17/18 [History] Hx Tetanus, Diphtheria Vaccination/Date Given: Yes Hx Influenza Vaccination/Date Given: Yes Hx Pneumococcal Vaccination/Date Given: No Immunizations Up to Date: Yes - Review of Systems Constitutional: No Symptoms All Other Systems: Unable due to condition - Past Medical History Pertinent Past Medical History: Yes Neurological History: Seizures ENT History: Glaucoma Cardiac History: Hypertension Respiratory History: Pneumonia Endocrine Medical History: No Pertinent History Musculoskeletal History: Other GI Medical History: Other History: Other Psycho-Social History: No Pertinent History Male Reproductive Disorders: Other Other Medical History: HYDROCEPHALUS, ANEMIA, htn,GLAUCOMA, BRONCHITIS, incontinence , wheelchair, feeding tube, urinary retention. 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: No (per acute care nurse practitioner) Significant Family History: no pertinent family hx - Nursing Vital Signs Nursing Vital Signs: Initial Vital Signs Temperature 98.2 F 12/12/18 23:00 Pulse Rate 85 12/12/18 23:00 Respiratory Rate 20 12/12/18 23:00 Blood Pressure 84/60 12/12/18 23:00 O2 Sat by Pulse Oximetry 95 12/12/18 23:00 Pain Scale Pain Intensity 0 - Physical Exam General Appearance: no apparent distress Eye Exam: eyes nml inspection Ears, Nose, Throat Exam: moist mucous membranes Neck Exam: normal inspection, No carotid bruit, No JVD Respiratory Exam: normal breath sounds, lungs clear, airway intact Cardiovascular Exam: regular rate/rhythm, normal heart sounds, normal peripheral pulses, No murmur Gastrointestinal/Abdomen Exam: soft, normal bowel sounds, other (epigastric feeding tube in place) Back Exam: normal inspection Extremity Exam: other (spastic left extremities, atrophic musculature) Neurologic Exam: other (nonverbal, at his usual alertness and mental functioning level according to his checkroom chief.) Skin Exam: normal color, warm, dry, No rash, No petechiae, No cyanosis SpO2 Interpretation: normal SpO2: 95 O2 Delivery: Room Air - Course Nursing assessment & vital signs reviewed: Yes EKG Interpreted by Me: RATE (88/min), NORMAL AXIS, NORMAL INTERVALS, NORMAL QRS , Non-specific ST Changes, Other (unchanged since 12/04/18) Ordered Tests: Active Orders 24 hr Category Date Time Status EKG-ER Only STAT Care 12/12/18 23:21 Active IV Insertion STAT Care 12/12/18 23:21 Active CBC W DIFF Stat Lab 12/12/18 23:24 Completed CK-Creatinine Phosphokinase Stat Lab 12/12/18 23:24 Completed CMP Stat Lab 12/12/18 23:24 Completed NT PRO BNP Stat Lab 12/12/18 23:24 Completed PROTIME WITH INR Stat Lab 12/12/18 23:24 Completed PTT Stat Lab 12/12/18 23:24 Completed TROPONIN Q3H Lab 12/12/18 23:24 Completed TROPONIN Q3H Lab 12/13/18 02:30 Ordered TROPONIN Q3H Lab 12/13/18 05:30 Ordered TROPONIN Q3H Lab 12/13/18 08:30 Ordered TROPONIN Q3H Lab 12/13/18 11:30 Ordered Medication Summary Discontinued Medications Generic Name Dose Route Start Last Admin Trade Name Freq PRN Reason Stop Dose Admin Sodium Chloride 500 mls @ 500 mls/hr 12/12/18 23:21 12/12/18 23:39 Sodium Chloride 0.9% 500 Ml IV 12/13/18 00:20 500 mls/hr .Q1H ONE Administration Sodium Chloride Confirm 12/12/18 23:28 Sodium Chloride 0.9% 500 Ml Administered 12/12/18 23:29 Dose 500 mls @ ud IV .STK-MED ONE Lab/Rad Data: Laboratory Result Diagrams 12/12/18 23:24 12/12/18 23:24 Laboratory Results 12/12/18 12/12/1812/12/19 Range/Units 23:24 23:24 23:24 WBC (4.0-10.5) K/mm3 RBC (4.1-5.6) M/mm3 Hgb (12.5-18.0) gm/dl Hct (42-50) % MCV (78-100) fl MCH (26-32) pg MCHC (32-36) g/dl RDW (11.5-14.0) % Plt Count (150-450) K/mm3 MPV (6-9.5) fl Gran % (36.0-66.0) % Eos # (Auto) (0-0.5) Absolute Lymphs (auto) (1.0-4.6) Absolute Monos (auto) (0.0-1.3) Lymphocytes % (24.0-44.0) % Monocytes % (0.0-12.0) % Eosinophils % (0.00-5.0) % Basophils % (0.0-0.4) % Absolute Granulocytes (1.4-6.9) Basophils # (0-0.4) PT 14.7 H (8.83-12.87) SECONDS INR 1.29 (0.8-3.0) APTT 30.5 (24.1-36.1) SECONDS Sodium 138 (137-145) mmol/L Potassium 4.5 (3.5-5.1) mmol/L Chloride 98 (98-107) mmol/L Carbon Dioxide 31 H (22-30) mmol/L Anion Gap 13.2 (5-15) MEQ/L BUN 31 H (9-20) mg/dL Creatinine 0.59 L (0.66-1.25) mg/dL Estimated GFR > 60.0 ML/MIN Glucose 79 (74-106) mg/dL Calcium 9.2 (8.4-10.2) mg/dL Total Bilirubin 0.30 (0.2-1.3) mg/dL AST 19 (17-59) U/L ALT 22 (0-50) U/L Alkaline Phosphatase 60 (38-126) U/L Creatine Kinase < 20 L (55-170) U/L Troponin I < 0.012 (0.000-0.034) ng/mL NT-Pro-B Natriuret Pep 61.0 (0-900) pg/mL Serum Total Protein 7.0 (6.3-8.2) g/dL Albumin 3.6 (3.5-5.0) g/dL 12/12/18 Range/Units 23:24 WBC 5.4 (4.0-10.5) K/mm3 RBC 3.42 L (4.1-5.6) M/mm3 Hgb 12.0 L (12.5-18.0) gm/dl Hct 36.0 L (42-50) % MCV 105.3 H (78-100) fl MCH 35.0 H (26-32) pg MCHC 33.3 (32-36) g/dl RDW 12.9 (11.5-14.0) % Plt Count 186 (150-450) K/mm3 MPV 11.0 H (6-9.5) fl Gran % 55.6 (36.0-66.0) % Eos # (Auto) 0.08 (0-0.5) Absolute Lymphs (auto) 1.66 (1.0-4.6) Absolute Monos (auto) 0.64 (0.0-1.3) Lymphocytes % 30.8 (24.0-44.0) % Monocytes % 11.9 (0.0-12.0) % Eosinophils % 1.5 (0.00-5.0) % Basophils % 0.2 (0.0-0.4) % Absolute Granulocytes 3.00 (1.4-6.9) Basophils # 0.01 (0-0.4) PT (8.83-12.87) SECONDS INR (0.8-3.0) APTT (24.1-36.1) SECONDS Sodium (137-145) mmol/L Potassium (3.5-5.1) mmol/L Chloride (98-107) mmol/L Carbon Dioxide (22-30) mmol/L Anion Gap (5-15) MEQ/L BUN (9-20) mg/dL Creatinine (0.66-1.25) mg/dL Estimated GFR ML/MIN Glucose (74-106) mg/dL Calcium (8.4-10.2) mg/dL Total Bilirubin (0.2-1.3) mg/dL AST (17-59) U/L ALT (0-50) U/L Alkaline Phosphatase (38-126) U/L Creatine Kinase (55-170) U/L Troponin I (0.000-0.034) ng/mL NT-Pro-B Natriuret Pep (0-900) pg/mL Serum Total Protein (6.3-8.2) g/dL Albumin (3.5-5.0) g/dL - Progress Progress: improved Progress Note: 12/13/18 00:28 Pt was given 500 ml NS bolus, blood pressure stabilized( 108/66), he is asleep, seems comfortable, afebrile, and stable. discussed our findings with his checkroom chief, and he is being discharged with instructions to cut Lisinopril to half does if blood pressure< 100/60 and follow up with his physician in 1 week. Counseled pt/family regarding: lab results, diagnosis, need for follow-up - Departure Departure Disposition: Home Clinical Impression: Hypotension Qualifiers: Hypotension type: unspecified hypotension type Qualified Code(s): I95.9 - Hypotension, unspecified Condition: Stable Critical Care Time: No Referrals: CINDY HAMILTON MD [Primary Care Provider] - Instructions: Low Blood Pressure (DC), Dehydration, Adult (DC) Additional Instructions: Continue hydration via gastric tube, decrease or stop Lisinopril if blood pressure is low ( < 100/60) and follow up with his physician in 1 week!
[2018-12-12 23:28] LABS: BASOPHIL % 0.2 % (0.0-0.4); Basophil (Absolute #) 0.01 (0-0.4); Eosinophil % 1.5 % (0.00-5.0); Eosinophil (Absolute #) 0.08 (0-0.5); Granulocytes % 55.6 % (36.0-66.0); Lymphocyte (Absolute #) 1.66 (1.0-4.6); Lymphocytes % 30.8 % (24.0-44.0); Mean Cell Volume 105.3 fl (78-100); Mean Corpuscular Hgb Concent. 33.3 g/dl (32-36); Monocytes % 11.9 % (0.0-12.0); Platelet Count 186 K/mm3 (150-450); Red Blood Count 3.42 M/mm3 (4.1-5.6); Red Cell Distribution Width 12.9 % (11.5-14.0); White Blood Count 5.4 K/mm3 (4.0-10.5)
[2018-12-12 23:36] LABS: INR 1.29 (0.8-3.0); PROTIME 14.7 SECONDS (8.83-12.87)
[2018-12-12 23:39] LABS: PTT 30.5 SECONDS (24.1-36.1)
[2018-12-12 23:49] LABS: ALBUMIN 3.6 g/dL (3.5-5.0); ALKALINE PHOSPHATASE 60 U/L (38-126); ANION GAP 13.2 MEQ/L (5-15); BLOOD UREA NITROGEN 31 mg/dL (9-20); CHLORIDE 98 mmol/L (98-107); Calcium 9.2 mg/dL (8.4-10.2); Carbon Dioxide 31 mmol/L (22-30); Creatinine 1 0.59 mg/dL (0.66-1.25); Glucose 79 mg/dL (74-106); Potassium 4.5 mmol/L (3.5-5.1); SGOT/AST 19 U/L (17-59); SGPT/ALT 22 U/L (0-50); SODIUM 138 mmol/L (137-145)
[2018-12-12 23:50] LABS: CK-Creatinine Phosphokinase < 20 U/L (55-170)
[2018-12-13 00:35] VITALS: BP 128/66; PULSE 90; O2SAT 97
== END 2018-12-13 00:43 | disposition home or self-care (01) ==
LOC: ED 22:47
DX: I95.9 Hypotension, unspecified (principal); I10 Essential (primary) hypertension; G40.909 Epilepsy, unspecified, not intractable, without status epilepticus; Z79.899 Other long term (current) drug therapy
CPT/HCPCS: 36000; 36415; 80053; 82550; 83880; 84484; 85025; 85610; 85730; 93005; 96360; 99284

== ENCOUNTER 2019-01-16 05:18 | Emergency (ER) | payer MEDICARE ==
--- NOTE | 2019-01-16 05:41 | ERPHSYRPT ---
- History of Present Illness Time Seen by Provider: 01/16/19 05:35 Source: patient, other (caregiver) Exam Limitations: other (pt is nonverbal chronically without change) Physician History: pt is 63 yr old nonverbal person with hx of prior urinary retention requiring frequent cath and also often leaves cath in for f/u. cassandra diet by gastrotube without vomiting; nontender abdomen Timing/Duration: today Activites at Onset: none Onset Location: other (bladder retention) Pain Radiation: suprapubic Severity of Pain-Max: moderate Severity of Pain-Current: moderate Modifying Factors: Improves With: nothing Prior abdominal problems: similar symptoms Sexual intercourse history: non-contributory, not active Allergies/Adverse Reactions: amoxicillin [From Augmentin] Allergy (Unknown, Verified 12/12/18 22:57) unknown cefazedone Allergy (Unknown, Verified 12/12/18 22:57) unknown clavulanic acid [From Augmentin] Allergy (Unknown, Verified 12/12/18 22:57) unknown codeine Allergy (Unknown, Verified 12/12/18 22:57) unknown Sulfa (Sulfonamide Antibiotics) Allergy (Unknown, Verified 12/12/18 22:57) unknown zinc oxide Allergy (Unknown, Verified 12/12/18 22:57) unknown cefepime Adverse Reaction (Unknown, Verified 12/12/18 22:57) Rash Penicillins Adverse Reaction (Unknown, Verified 12/12/18 22:57) unknown Home Medications: Lisinopril 20 mg [Zestril 20 MG] 10 mg PEG DAILY 02/09/17 [History] Phenobarbital 20 mg/5 ml [Phenobarbital 20 mg/5 ml Elixir] 15 ml PEG DAILY 02/09/17 [History] Valproic Acid 250 mg/5 ml [Depakene 250 MG/5 ML Syrup] 15 ml PEG BID 02/09 [History] Carbamide Peroxide [Debrox] 15 ml OT DIRECTIONS UNKNOWN 09/23/17 [History] Amlodipine Besylate 10 mg [Norvasc 10 MG] 10 mg PEG DAILY 09/28/17 [History] Tizanidine HCl 8 mg PEG DAILY 11/17/18 [History] Polyethylene Glycol 3350 [Miralax] 17 g G-TUBE DAILY 01/16/19 [History] Psyllium Husk (with Sugar) [Metamucil Packet] 3.4 gm G-TUBE DAILY 01/16/19 [ History] Sennosides [Senna] 8.6 mg G-TUBE DAILY 01/16/19 [History] Hx Tetanus, Diphtheria Vaccination/Date Given: Yes Hx Influenza Vaccination/Date Given: Yes Hx Pneumococcal Vaccination/Date Given: No - Past Medical History Pertinent Past Medical History: Yes Neurological History: Seizures ENT History: Glaucoma Cardiac History: Hypertension Respiratory History: Pneumonia Endocrine Medical History: No Pertinent History Musculoskeletal History: Other GI Medical History: Other History: Other Psycho-Social History: No Pertinent History Male Reproductive Disorders: Other Other Medical History: HYDROCEPHALUS, ANEMIA, htn,GLAUCOMA, BRONCHITIS, incontinence , wheelchair, feeding tube, urinary retention. 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: No (per home health caregiver) Significant Family History: no pertinent family hx - Review of Systems Constitutional: No Fever, No Chills Eyes: No Symptoms Ears, Nose, & Throat: No Symptoms Respiratory: No Cough, No Dyspnea Cardiac: No Chest Pain, No Edema, No Syncope Abdominal/Gastrointestinal: No Abdominal Pain, No Nausea, No Vomiting, No Diarrhea Genitourinary Symptoms: Urinary Retention, No Dysuria Musculoskeletal: No Back Pain, No Neck Pain Skin: No Rash Neurological: No Dizziness, No Focal Weakness, No Sensory Changes Psychological: No Symptoms Endocrine: No Symptoms All Other Systems: Reviewed and Negative - Nursing Vital Signs Nursing Vital Signs: Initial Vital Signs Temperature 97.7 F 01/16/19 05:19 Pulse Rate 73 01/16/19 05:19 Respiratory Rate 20 01/16/19 05:19 Blood Pressure 148/93 01/16/19 05:19 O2 Sat by Pulse Oximetry 98 01/16/19 05:19 Pain Scale Pain Intensity 0 - Physical Exam General Appearance: no apparent distress, alert Eye Exam: PERRL/EOMI Ears, Nose, Throat Exam: pharynx normal, moist mucous membranes Neck Exam: normal inspection, supple Respiratory Exam: normal breath sounds, lungs clear Cardiovascular Exam: regular rate/rhythm, No edema Gastrointestinal/Abdomen Exam: soft, No tenderness Back Exam: normal inspection, No CVA tenderness Extremity Exam: normal inspection, normal range of motion, No pedal edema Neurologic Exam: alert, sensation nml, other (stable nonverbal mental state without change by caregiver hx; ), No motor deficits Skin Exam: normal color, warm, dry, No rash - Course Nursing assessment & vital signs reviewed: Yes Ordered Tests: Active Orders 24 hr Category Date Time Status Catheter-Ceres Hernández STAT Care 01/16/19 05:42 Active CBC W DIFF Stat Lab 01/16/19 06:20 Completed CMP Stat Lab 01/16/19 06:20 Completed CULTURE,URINE Stat Lab 01/16/19 06:30 Received UA W/RFX UR CULTURE Stat Lab 01/16/19 06:30 Completed Lab/Rad Data: Laboratory Result Diagrams 01/16/19 06:20 01/16/19 06:20 Laboratory Results 01/16/19 01/16/19 01/16/19 Range/Units 06:30 06:20 06:20 WBC 4.1 (4.0-10.5) K/mm3 RBC 3.93 L (4.1-5.6) M/mm3 Hgb 14.1 (12.5-18.0) gm/dl Hct 41.0 L (42-50) % MCV 104.3 H (78-100) fl MCH 35.8 H (26-32) pg MCHC 34.4 (32-36) g/dl RDW 12.6 (11.5-14.0) % Plt Count 187 (150-450) K/mm3 MPV 10.6 H (6-9.5) fl Gran % 53.1 (36.0-66.0) % Eos # (Auto) 0.10 (0-0.5) Absolute Lymphs (auto) 1.15 (1.0-4.6) Absolute Monos (auto) 0.68 (0.0-1.3) Lymphocytes % 27.8 (24.0-44.0) % Monocytes % 16.5 H (0.0-12.0) % Eosinophils % 2.4 (0.00-5.0) % Basophils % 0.2 (0.0-0.4) % Absolute Granulocytes 2.19 (1.4-6.9) Basophils # 0.01 (0-0.4) Sodium 139 (137-145) mmol/L Potassium 4.4 (3.5-5.1) mmol/L Chloride 104 (98-107) mmol/L Carbon Dioxide 28 (22-30) mmol/L Anion Gap 12.0 (5-15) MEQ/L BUN 38 H (9-20) mg/dL Creatinine 0.47 L (0.66-1.25) mg/dL Estimated GFR > 60.0 ML/MIN Glucose 100 (74-106) mg/dL Calcium 9.3 (8.4-10.2) mg/dL Total Bilirubin 0.40 (0.2-1.3) mg/dL AST 31 (17-59) U/L ALT 23 (0-50) U/L Alkaline Phosphatase 76 (38-126) U/L Serum Total Protein 7.6 (6.3-8.2) g/dL Albumin 4.1 (3.5-5.0) g/dL Urine Color KATHY (YELLOW) Urine Appearance SLIGHTLY CLOUDY (CLEAR) Urine pH 7.0 (5-6) Ur Specific [place] 1.024 (1.005-1.025) Urine Protein NEGATIVE (Negative) Urine Ketones TRACE (NEGATIVE) Urine Blood NEGATIVE (0-5) Donis/ul Urine Nitrite NEGATIVE (NEGATIVE) Urine Bilirubin NEGATIVE (NEGATIVE) Urine Urobilinogen NEGATIVE (0-1) mg/dL Ur Leukocyte Esterase NEGATIVE (NEGATIVE) Urine WBC (Auto) 3-5 (0-5) /HPF Urine RBC (Auto) 0-2 (0-2) /HPF U Epithel Cells (Auto) NONE (FEW) /HPF Urine Bacteria (Auto) NONE (NEGATIVE) /HPF Urine Mucus (Auto) SLIGHT (NEGATIVE) /HPF Urine Culture Reflexed NO (NO) Urine Glucose NEGATIVE (NEGATIVE) mg/dL - Progress Progress: improved, re-examined Counseled pt/family regarding: lab results, diagnosis, need for follow-up - Departure Departure Disposition: Home Clinical Impression: Urinary retention, Dehydration, mild Condition: Good Critical Care Time: No Referrals: Provider,Unknown [Primary Care Provider] - Instructions: How to Care for Your Hernández Catheter, Male Additional Instructions: followup with your PCP thursday for referral to urologist and return meantime if any concerns. give more fluids the next few days and return if any problems meantime - followup with PCP to retest renal labs; followup blood pressure with PCP as well .
[2019-01-16 06:36] LABS: BASOPHIL % 0.2 % (0.0-0.4); Basophil (Absolute #) 0.01 (0-0.4); Eosinophil % 2.4 % (0.00-5.0); Granulocyte Absolute (ANC) 2.19 (1.4-6.9); Granulocytes % 53.1 % (36.0-66.0); Hemoglobin 14.1 gm/dl (12.5-18.0); Lymphocyte (Absolute #) 1.15 (1.0-4.6); Lymphocytes % 27.8 % (24.0-44.0); Mean Cell Volume 104.3 fl (78-100); Mean Corpuscular Hgb Concent. 34.4 g/dl (32-36); Mean Platelet Volume 10.6 fl (6-9.5); Monocyte (Absolute #) 0.68 (0.0-1.3); Monocytes % 16.5 % (0.0-12.0); Platelet Count 187 K/mm3 (150-450); Red Blood Count 3.93 M/mm3 (4.1-5.6); Red Cell Distribution Width 12.6 % (11.5-14.0); White Blood Count 4.1 K/mm3 (4.0-10.5)
[2019-01-16 06:39] VITALS: O2SAT 95
[2019-01-16 06:43] LABS: Mean Corpuscular Hemoglobin 35.8 pg (26-32)
[2019-01-16 06:45] LABS: Appearance SLIGHTLY CLOUDY (CLEAR); Bilirubin NEGATIVE (NEGATIVE); Blood NEGATIVE Ery/ul (0-5); Glucose NEGATIVE (NEGATIVE); Ketones TRACE (NEGATIVE); Leukocyte Esterase NEGATIVE (NEGATIVE); Mucus SLIGHT /HPF (NEGATIVE); Nitrite NEGATIVE (NEGATIVE); Protein,Urine Dip NEGATIVE (Negative); RBC 0-2 /HPF (0-2); Specific Gravity 1.024 (1.005-1.025); Urobilinogen NEGATIVE mg/dL (0-1)
[2019-01-16 06:48] LABS: ALBUMIN 4.1 g/dL (3.5-5.0); ALKALINE PHOSPHATASE 76 U/L (38-126); BLOOD UREA NITROGEN 38 mg/dL (9-20); CHLORIDE 104 mmol/L (98-107); Calcium 9.3 mg/dL (8.4-10.2); Carbon Dioxide 28 mmol/L (22-30); Creatinine 1 0.47 mg/dL (0.66-1.25); Glucose 100 mg/dL (74-106); Potassium 4.4 mmol/L (3.5-5.1); SGOT/AST 31 U/L (17-59); SGPT/ALT 23 U/L (0-50); SODIUM 139 mmol/L (137-145); Total Protein 7.6 g/dL (6.3-8.2)
[2019-01-16 06:52] VITALS: BP 162/92; PULSE 80
== END 2019-01-16 07:58 | disposition home or self-care (01) ==
LOC: ED 05:18
DX: R33.9 Retention of urine, unspecified (principal); E86.0 Dehydration; J40 Bronchitis, not specified as acute or chronic; I10 Essential (primary) hypertension; G40.909 Epilepsy, unspecified, not intractable, without status epilepticus; Z79.899 Other long term (current) drug therapy
CPT/HCPCS: 36415; 51702; 80053; 81001; 85025; 87086; 99284

== ENCOUNTER 2019-01-17 20:43 | Emergency (ER) | payer MEDICARE ==
--- NOTE | 2019-01-17 21:14 | ERPHSYRPT ---
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 His oceanology teacher noticed leaking around the catheter this morning again, she denies fever, vomiting, other complaints. Timing/Duration: today Activites at Onset: none Quality: other (none) Onset Location: unknown Allergies/Adverse Reactions: amoxicillin [From Augmentin] Allergy (Unknown, Verified 12/12/18 22:57) unknown cefazedone Allergy (Unknown, Verified 12/12/18 22:57) unknown clavulanic acid [From Augmentin] Allergy (Unknown, Verified 12/12/18 22:57) unknown codeine Allergy (Unknown, Verified 12/12/18 22:57) unknown Sulfa (Sulfonamide Antibiotics) Allergy (Unknown, Verified 12/12/18 22:57) unknown zinc oxide Allergy (Unknown, Verified 12/12/18 22:57) unknown cefepime Adverse Reaction (Unknown, Verified 12/12/18 22:57) Rash Penicillins Adverse Reaction (Unknown, Verified 12/12/18 22:57) unknown Home Medications: Lisinopril 20 mg [Zestril 20 MG] 10 mg PEG DAILY 02/09/17 [History] Phenobarbital 20 mg/5 ml [Phenobarbital 20 mg/5 ml Elixir] 15 ml PEG DAILY 02/09/17 [History] Valproic Acid 250 mg/5 ml [Depakene 250 MG/5 ML Syrup] 15 ml PEG BID 02/09 [History] Carbamide Peroxide [Debrox] 15 ml OT DIRECTIONS UNKNOWN 09/23/17 [History] Amlodipine Besylate 10 mg [Norvasc 10 MG] 10 mg PEG DAILY 09/28/17 [History] Tizanidine HCl 8 mg PEG DAILY 11/17/18 [History] Polyethylene Glycol 3350 [Miralax] 17 g G-TUBE DAILY 01/16/19 [History] Psyllium Husk (with Sugar) [Metamucil Packet] 3.4 gm G-TUBE DAILY 01/16/19 [ History] Sennosides [Senna] 8.6 mg G-TUBE DAILY 01/16/19 [History] Hx Tetanus, Diphtheria Vaccination/Date Given: Yes Hx Influenza Vaccination/Date Given: Yes Hx Pneumococcal Vaccination/Date Given: No Immunizations Up to Date: Yes - Past Medical History Pertinent Past Medical History: Yes Neurological History: Seizures ENT History: Glaucoma Cardiac History: Hypertension Respiratory History: Pneumonia Endocrine Medical History: No Pertinent History Musculoskeletal History: Other GI Medical History: Other History: Other Psycho-Social History: No Pertinent History Male Reproductive Disorders: Other Other Medical History: HYDROCEPHALUS, ANEMIA, htn,GLAUCOMA, BRONCHITIS, incontinence , wheelchair, feeding tube, urinary retention. 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: No (per pediatric acute care unit nurse) Significant Family History: no pertinent family hx - Review of Systems Constitutional: No Symptoms All Other Systems: Unable due to condition - Nursing Vital Signs Nursing Vital Signs: Initial Vital Signs Pulse Rate 90 01/17/19 20:43 Respiratory Rate 18 01/17/19 20:43 Blood Pressure 110/69 01/17/19 20:43 O2 Sat by Pulse Oximetry 98 01/17/19 20:43 Pain Scale Pain Intensity 0 - Physical Exam General Appearance: no apparent distress Ears, Nose, Throat Exam: normal ENT inspection Neck Exam: normal inspection Respiratory Exam: normal breath sounds, lungs clear, airway intact Cardiovascular Exam: regular rate/rhythm, normal heart sounds Gastrointestinal/Abdomen Exam: soft, normal bowel sounds, other (large umbilical hernia, soft, nontender, epigastric feeding tube in place) Male Genital Exam: normal genitalia (Oleary catheter inserted) Back Exam: normal inspection Extremity Exam: other (left upper extremity spastic) Neurologic Exam: alert Skin Exam: normal color, warm, dry, No rash SpO2 Interpretation: normal SpO2: 98 O2 Delivery: Room Air - Course Nursing assessment & vital signs reviewed: Yes Ordered Tests: Active Orders 24 hr Category Date Time Status BMP Stat Lab 01/17/19 21:55 Completed CBC Stat Lab 01/17/19 21:55 Completed CULTURE,URINE Stat Lab 01/17/19 21:50 Received UA W/RFX UR CULTURE Stat Lab 01/17/19 21:50 Completed Lab/Rad Data: Laboratory Result Diagrams 01/17/19 21:55 01/17/19 21:55 Laboratory Results 01/17/19 01/17/19 01/17/19 Range/Units 21:55 21:55 21:50 WBC 6.6 (4.0-10.5) K/mm3 RBC 4.01 L (4.1-5.6) M/mm3 Hgb 14.1 (12.5-18.0) gm/dl Hct 41.2 L (42-50) % MCV 102.7 H (78-100) fl MCH 35.1 H (26-32) pg MCHC 34.2 (32-36) g/dl RDW 12.6 (11.5-14.0) % Plt Count 192 (150-450) K/mm3 MPV 10.1 H (6-9.5) fl Sodium 140 (137-145) mmol/L Potassium 4.3 (3.5-5.1) mmol/L Chloride 103 (98-107) mmol/L Carbon Dioxide 29 (22-30) mmol/L Anion Gap 12.0 (5-15) MEQ/L BUN 26 H (9-20) mg/dL Creatinine 0.48 L (0.66-1.25) mg/dL Estimated GFR > 60.0 ML/MIN Glucose 86 (74-106) mg/dL Calcium 9.6 (8.4-10.2) mg/dL Urine Color YELLOW (YELLOW) Urine Appearance SLIGHTLY CLOUDY (CLEAR) Urine pH 9.0 (5-6) Ur Specific Mize 1.020 (1.005-1.025) Urine Protein >=500 (Negative) Urine Ketones TRACE (NEGATIVE) Urine Blood MODERATE (0-5) Donis/ul Urine Nitrite NEGATIVE (NEGATIVE) Urine Bilirubin NEGATIVE (NEGATIVE) Urine Urobilinogen NEGATIVE (0-1) mg/dL Ur Leukocyte Esterase MODERATE (NEGATIVE) Urine WBC (Auto) 16-25 (0-5) /HPF Urine RBC (Auto) >101 (0-2) /HPF U Epithel Cells (Auto) NONE (FEW) /HPF Urine Bacteria (Auto) FEW (NEGATIVE) /HPF Urine Mucus (Auto) SLIGHT (NEGATIVE) /HPF Urine Culture Reflexed ORDERED SEPARATELY (NO) Urine Glucose NEGATIVE (NEGATIVE) mg/dL - Progress Progress: unchanged Progress Note: 01/17/19 22:55 We reviewed his lab results and discussed with his oceanology teacher, advised to continue increased hydration via feeding tube, he is being started on Cipro 500 mg BID, and discharged in stable condition to follow up with his physician in 2- 3 days. Counseled pt/family regarding: lab results, diagnosis, need for follow-up - Departure Departure Disposition: Home Clinical Impression: UTI (urinary tract infection) Qualifiers: Urinary tract infection type: site unspecified Hematuria presence: without hematuria Qualified Code(s): N39.0 - Urinary tract infection, site not specified Condition: Stable Critical Care Time: No Referrals: TATY ANNE MD [Primary Care Provider] - Instructions: Urinary Retention (DC), Urinary Tract Infection, Adult (DC) Additional Instructions: Continue hydration via feeding tuba and start Cipro 500 mg BID, follow up with his physician in 2-3 days, return if severe pain, vomiting, fever> 102 F, lethargy ! Prescriptions: Ciprofloxacin [Cipro] 500 mg PO BID 7 Days #70 ml
[2019-01-17 22:02] LABS: Hematocrit 41.2 % (42-50); Hemoglobin 14.1 gm/dl (12.5-18.0); Mean Cell Volume 102.7 fl (78-100); Mean Corpuscular Hgb Concent. 34.2 g/dl (32-36); Mean Platelet Volume 10.1 fl (6-9.5); Platelet Count 192 K/mm3 (150-450); Red Blood Count 4.01 M/mm3 (4.1-5.6); Red Cell Distribution Width 12.6 % (11.5-14.0); White Blood Count 6.6 K/mm3 (4.0-10.5)
[2019-01-17 22:06] LABS: Mean Corpuscular Hemoglobin 35.1 pg (26-32)
[2019-01-17 22:15] LABS: BLOOD UREA NITROGEN 26 mg/dL (9-20); CHLORIDE 103 mmol/L (98-107); Calcium 9.6 mg/dL (8.4-10.2); Carbon Dioxide 29 mmol/L (22-30); Creatinine 1 0.48 mg/dL (0.66-1.25); Glucose 86 mg/dL (74-106); Potassium 4.3 mmol/L (3.5-5.1); SODIUM 140 mmol/L (137-145)
[2019-01-17 22:18] LABS: Appearance SLIGHTLY CLOUDY (CLEAR); Bacteria FEW /HPF (NEGATIVE); Bilirubin NEGATIVE (NEGATIVE); Blood MODERATE Ery/ul (0-5); Glucose NEGATIVE (NEGATIVE); Ketones TRACE (NEGATIVE); Leukocyte Esterase MODERATE (NEGATIVE); Mucus SLIGHT /HPF (NEGATIVE); Nitrite NEGATIVE (NEGATIVE); Protein,Urine Dip >=500 (Negative); Urobilinogen NEGATIVE mg/dL (0-1)
[2019-01-17 22:28] LABS: RBC >101 /HPF (0-2)
[2019-01-17 23:00] VITALS: O2SAT 98
[2019-01-17] MEDS ORDERED: Cipro 500 MG ONE (23:22)
[2019-01-18 00:19] VITALS: BP 122/82; PULSE 80
[2019-01-18] MEDS ORDERED: Cipro 500 MG PO ONE (22:54)
== END 2019-01-17 23:40 | disposition home or self-care (01) ==
LOC: ED 20:43
DX: N39.0 Urinary tract infection, site not specified (principal); Z79.899 Other long term (current) drug therapy; Z46.6 Encounter for fitting and adjustment of urinary device; I10 Essential (primary) hypertension
CPT/HCPCS: 36415; 51702; 80048; 81001; 85027; 87086; 99284; A9270-GY

== ENCOUNTER 2019-02-20 08:41 | Emergency (ER) | payer MEDICARE | END 2019-02-20 11:12 | disposition home or self-care (01) | LOC: ED 08:41 ==

== ENCOUNTER 2019-04-17 14:35 | Emergency (ER) | payer MEDICARE ==
--- NOTE | 2019-04-17 14:56 | ERPHSYRPT ---
- History of Present Illness Time Seen by Provider: 04/17/19 14:40 Source: EMS, other (assisted staff) Exam Limitations: other (patient is non-verbal) Physician History: patient is brought into the emergency department by EMS from his nursing facility due to a fall that occurred at approximately 6:20 PM on 04/16/2019. Patient fell from his shower chair. Patient is nonverbal, so per protocol from the nursing facility, he is to be evaluated after a fall due to being unable to notify any staff that he may be injured. Occurred: hours ago (20) Reason for Fall: unknown (fell from a sitting position onto the floor) Injuries/Pain Location: no injury Loss of Consciousness: no loss of consciousness Quality: other (unable to verbalize any pain there has been no apparent change in behavior, his ability to verbalize, or in his nonverbal cues.) Severity of Pain-Max: none Severity of Pain-Current: none Modifying Factors: Improves With: nothing Associated Symptoms (Fall): No abdominal pain, No back pain, No chest pain, No extremity injury, No neck pain, No seizures, No shortness of breath, No vomiting Allergies/Adverse Reactions: amoxicillin [From Augmentin] Allergy (Unknown, Verified 12/12/18 22:57) unknown cefazedone Allergy (Unknown, Verified 12/12/18 22:57) unknown clavulanic acid [From Augmentin] Allergy (Unknown, Verified 12/12/18 22:57) unknown codeine Allergy (Unknown, Verified 12/12/18 22:57) unknown Sulfa (Sulfonamide Antibiotics) Allergy (Unknown, Verified 12/12/18 22:57) unknown zinc oxide Allergy (Unknown, Verified 12/12/18 22:57) unknown cefepime Adverse Reaction (Unknown, Verified 12/12/18 22:57) Rash Penicillins Adverse Reaction (Unknown, Verified 12/12/18 22:57) unknown Home Medications: Lisinopril 20 mg [Zestril 20 MG] 10 mg PEG DAILY 02/09/17 [History] Phenobarbital 20 mg/5 ml [Phenobarbital 20 mg/5 ml Elixir] 15 ml PEG DAILY 02/09/17 [History] Valproic Acid 250 mg/5 ml [Depakene 250 MG/5 ML Syrup] 15 ml PEG BID 02/09 [History] Carbamide Peroxide [Debrox] 15 ml OT DIRECTIONS UNKNOWN 09/23/17 [History] Amlodipine Besylate 10 mg [Norvasc 10 MG] 10 mg PEG DAILY 09/28/17 [History] Tizanidine HCl 8 mg PEG DAILY 11/17/18 [History] Polyethylene Glycol 3350 [Miralax] 17 g G-TUBE DAILY 01/16/19 [History] Psyllium Husk (with Sugar) [Metamucil Packet] 3.4 gm G-TUBE DAILY 01/16/19 [ History] Sennosides [Senna] 8.6 mg G-TUBE DAILY 01/16/19 [History] Hx Tetanus, Diphtheria Vaccination/Date Given: Yes Hx Influenza Vaccination/Date Given: Yes Hx Pneumococcal Vaccination/Date Given: No - Review of Systems Constitutional: No Fever, No Chills, No Lethargy Eyes: No Discharge, No Tearing Ears, Nose, & Throat: No Nose Pain, No Epistaxis, No Mouth Pain, No Loose Teeth Respiratory: No Cough, No Dyspnea Cardiac: No Syncope Abdominal/Gastrointestinal: No Abdominal Pain, No Vomiting, No Diarrhea, No Hematochezia, No Melena Genitourinary Symptoms: No Flank Pain Musculoskeletal: No Back Pain, No Neck Pain, No Deformity, No Joint Redness, No Joint Pain, No Joint Swelling Skin: No Cellulitis, No Rash, No Skin Lesions Neurological: No Seizure, No Tremors Psychological: No Emotional Lability Hematologic/Lymphatic: No Easy Bleeding, No Easy Bruising All Other Systems: Reviewed and Negative - Past Medical History Pertinent Past Medical History: Yes Neurological History: Seizures ENT History: Glaucoma Cardiac History: Hypertension Respiratory History: Pneumonia Endocrine Medical History: No Pertinent History Musculoskeletal History: Other GI Medical History: Other History: Other Psycho-Social History: No Pertinent History Male Reproductive Disorders: Other Other Medical History: HYDROCEPHALUS, ANEMIA, htn,GLAUCOMA, BRONCHITIS, incontinence , wheelchair, feeding tube, urinary retention. 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 care consultant) Significant Family History: no pertinent family hx - [place] Coma Score Best Eye Response ([place]): (4) open spontaneously Best Verbal Response ([place]): (5) oriented Best Motor Response ([place]): (6) obeys commands [place] Total: 15 (per patient's baseline due to his medical conditions) - Physical Exam General Appearance: no apparent distress Head Injury: no evidence of injury, No active bleeding, No Blas's Sign, No contusions, No ecchymosis, No flap, No lacerations, No raccoon eyes, No swelling , No tenderness Eye Exam: PERRL/EOMI, eyes nml inspection, No scleral icterus, No pale conjunctivae ENT Exam: airway nml, No evidence of ENT injury, No dental injury, No nml ext.inspection, No clear fluid (ears), No clear fluid (nose), No midface instability, No decreased hearing, No hemotympanum, No clotted nasal blood, No oral injury Neck Exam: supple, trachea midline, full range of motion, normal alignment, normal inspection, No paraspinous muscle tender Respiratory/Chest Exam: normal breath sounds, No chest tenderness, No respiratory distress, No ecchymosis, No crepitus, No decreased breath sounds, No rales, No rhonchi, No wheezing, No accessory muscle use Cardiovascular Exam: normal heart sounds, regular rate/rhythm, normal peripheral pulses, No murmur Gastrointestinal Exam: soft, normal bowel sounds, No tenderness, No distention, No mass, No guarding, No ecchymosis Genitalia Exam: normal genital exam Rectal Exam: normal exam, No hemorrhoids, No black stool Back Exam: normal inspection, No CVA tenderness, No vertebral tenderness, No rash, No point tenderness Extremity Exam: normal inspection, capillary refill <3 sec, pelvis stable, No deformities, No bony point tenderness, No evidence of injury Neurologic Exam: alert, No agitation, No facial droop Skin Exam: normal color, warm, dry, No rash, No abrasion, No laceration SpO2 Interpretation: normal O2 Delivery: Room Air - Departure Departure Disposition: Extended Care Facility Clinical Impression: Elevated blood pressure reading without diagnosis of hypertension Fall Qualifiers: Encounter type: initial encounter Qualified Code(s): W19.XXXA - Unspecified fall, initial encounter Condition: Good Critical Care Time: No Referrals: TATY ANNE MD [Primary Care Provider] - 04/18/19 Instructions: Preventing Falls, Contusion (DC) Additional Instructions: Return back to the emergency department if any concerning signs or symptoms occur that were not present at today's emergency department visit for immediate re-evaluation in the emergency department.
[2019-04-17 15:23] VITALS: BP 121/90; PULSE 110; O2SAT 96
== END 2019-04-17 15:20 | disposition home or self-care (01) ==
LOC: ED 14:35
DX: R03.0 Elevated blood-pressure reading, without diagnosis of hypertension (principal); W19.XXXA Unspecified fall, initial encounter
CPT/HCPCS: 99283

== ENCOUNTER 2019-06-03 20:38 | Emergency (ER) | payer MEDICARE ==
[2019-06-03 20:57] VITALS: BP 149/129; PULSE 110; O2SAT 94
--- NOTE | 2019-06-03 20:59 | ERPHSYRPT ---
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 was not dislodged. central port cap blowing off secondary to pressure. otherwise feeding tube functioning well. pt sees his surgeon on 06/16/19 for tube evaluation. Timing/Duration: today Severity: mild Modifying Factors: Improves With: nothing Associated Symptoms: denies symptoms, No shortness of breath Allergies/Adverse Reactions: amoxicillin [From Augmentin] Allergy (Unknown, Verified 04/17/19 15:09) unknown cefazedone Allergy (Unknown, Verified 04/17/19 15:09) unknown clavulanic acid [From Augmentin] Allergy (Unknown, Verified 04/17/19 15:09) unknown codeine Allergy (Unknown, Verified 04/17/19 15:09) unknown Sulfa (Sulfonamide Antibiotics) Allergy (Unknown, Verified 04/17/19 15:09) unknown zinc oxide Allergy (Unknown, Verified 04/17/19 15:09) unknown cefepime Adverse Reaction (Unknown, Verified 04/17/19 15:09) Rash Penicillins Adverse Reaction (Unknown, Verified 04/17/19 15:09) unknown Home Medications: Lisinopril 20 mg [Zestril 20 MG] 10 mg PEG DAILY 02/09/17 [History] Phenobarbital 20 mg/5 ml [Phenobarbital 20 mg/5 ml Elixir] 15 ml PEG DAILY 02/09/17 [History] Valproic Acid 250 mg/5 ml [Depakene 250 MG/5 ML Syrup] 15 ml PEG BID 02/09 [History] Carbamide Peroxide [Debrox] 15 ml OT DIRECTIONS UNKNOWN 09/23/17 [History] Amlodipine Besylate 10 mg [Norvasc 10 MG] 10 mg PEG DAILY 09/28/17 [History] Tizanidine HCl 8 mg PEG DAILY 11/17/18 [History] Polyethylene Glycol 3350 [Miralax] 17 g G-TUBE DAILY 01/16/19 [History] Psyllium Husk (with Sugar) [Metamucil Packet] 3.4 gm G-TUBE DAILY 01/16/19 [ History] Sennosides [Senna] 8.6 mg G-TUBE DAILY 01/16/19 [History] Hx Tetanus, Diphtheria Vaccination/Date Given: Yes Hx Influenza Vaccination/Date Given: Yes Hx Pneumococcal Vaccination/Date Given: No - Review of Systems Constitutional: No Symptoms Eyes: No Symptoms Ears, Nose, & Throat: No Symptoms Respiratory: No Symptoms Cardiac: No Symptoms Abdominal/Gastrointestinal: No Symptoms, Other (feeding tube skin site wnl. malfunctioning cap on central feeding tube port) Genitourinary Symptoms: No Symptoms Skin: No Symptoms Neurological: No Symptoms Psychological: No Symptoms Endocrine: No Symptoms Hematologic/Lymphatic: No Symptoms Immunological/Allergic: No Symptoms All Other Systems: Reviewed and Negative - Past Medical History Pertinent Past Medical History: Yes Neurological History: Seizures ENT History: Glaucoma Cardiac History: Hypertension Respiratory History: Pneumonia Endocrine Medical History: No Pertinent History Musculoskeletal History: Other GI Medical History: Other History: Other Psycho-Social History: No Pertinent History Male Reproductive Disorders: Other Other Medical History: HYDROCEPHALUS, ANEMIA, htn,GLAUCOMA, BRONCHITIS, incontinence , wheelchair, feeding tube, urinary retention. 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 cap of central feeding tube port loose and leaking. ) Rectal Exam: not done Neurologic Exam: alert, oriented x 3, cooperative, title insurance examiner II-XII nml as tested Skin Exam: normal color Lymphatic Exam: No adenopathy SpO2 Interpretation: normal - Course Nursing assessment & vital signs reviewed: Yes - Progress Progress: improved Progress Note: 06/03/19 21:05 pts feeding tube in the correct position and functioning. i replaced cap on central port. this fixed the problem Counseled pt/family regarding: diagnosis, need for follow-up - Departure Departure Disposition: Home Clinical Impression: Feeding tube dysfunction Condition: Stable Critical Care Time: No Referrals: TATY ANNE MD [Primary Care Provider] - Additional Instructions: resume pre emergency department orders and instructions
== END 2019-06-03 21:47 | disposition home or self-care (01) ==
LOC: ED 20:38
DX: K94.29 Other complications of gastrostomy (principal)
CPT/HCPCS: 99283

== ENCOUNTER 2019-06-05 23:59 | Inpatient (IN) | payer MEDICARE ==
--- NOTE | 2019-06-06 00:19 | ERPHSYRPT ---
- History of Present Illness Time Seen by Provider: 06/06/19 00:01 Source: EMS, custodial records Exam Limitations: clinical condition, physical impairment Physician History: 63 y/o unresponsive white male with cerebral palsy, who lives in a intermediate, presents via EMS. 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 pt has with a feeding tube in place. pt is nonverbal normally. tonight he is unresponsive. pt is DNR. medical problems include: seizure disorder(on valproic acid), dysphagia(gastric tube in place), expressive /receptive communication disorder. additional hx provided by health care worker includes pt having vomiting and diarrhea since thursday 5pm on 06/04/19. pt last urinated same day at 2300. Severity: moderate Associated Symptoms: other (unresponsiveness) Allergies/Adverse Reactions: amoxicillin [From Augmentin] Allergy (Unknown, Verified 04/17/19 15:09) unknown cefazedone Allergy (Unknown, Verified 04/17/19 15:09) unknown clavulanic acid [From Augmentin] Allergy (Unknown, Verified 04/17/19 15:09) unknown codeine Allergy (Unknown, Verified 04/17/19 15:09) unknown Sulfa (Sulfonamide Antibiotics) Allergy (Unknown, Verified 04/17/19 15:09) unknown zinc oxide Allergy (Unknown, Verified 04/17/19 15:09) unknown cefepime Adverse Reaction (Unknown, Verified 04/17/19 15:09) Rash Penicillins Adverse Reaction (Unknown, Verified 04/17/19 15:09) unknown Home Medications: Lisinopril 20 mg [Zestril 20 MG] 10 mg PEG DAILY 02/09/17 [History] Phenobarbital 20 mg/5 ml [Phenobarbital 20 mg/5 ml Elixir] 15 ml PEG DAILY 02/09/17 [History] Valproic Acid 250 mg/5 ml [Depakene 250 MG/5 ML Syrup] 15 ml PEG BID 02/09 [History] Carbamide Peroxide [Debrox] 15 ml OT DIRECTIONS UNKNOWN 09/23/17 [History] Amlodipine Besylate 10 mg [Norvasc 10 MG] 10 mg PEG DAILY 09/28/17 [History] Tizanidine HCl 8 mg PEG DAILY 11/17/18 [History] Polyethylene Glycol 3350 [Miralax] 17 g G-TUBE DAILY 01/16/19 [History] Psyllium Husk (with Sugar) [Metamucil Packet] 3.4 gm G-TUBE DAILY 01/16/19 [ History] Sennosides [Senna] 8.6 mg G-TUBE DAILY 01/16/19 [History] Hx Tetanus, Diphtheria Vaccination/Date Given: Yes Hx Influenza Vaccination/Date Given: Yes Hx Pneumococcal Vaccination/Date Given: No - Review of Systems Constitutional: No Symptoms Eyes: No Symptoms Ears, Nose, & Throat: No Symptoms Respiratory: Other (respiratory distress) Cardiac: No Symptoms Abdominal/Gastrointestinal: No Symptoms, No Nausea, No Vomiting, No Diarrhea Genitourinary Symptoms: No Symptoms Musculoskeletal: No Symptoms Skin: Other (mottling of ext) Neurological: Other (unresponsive) Psychological: Other (unresponsive) Endocrine: No Symptoms Hematologic/Lymphatic: No Symptoms Immunological/Allergic: No Symptoms All Other Systems: Reviewed and Negative - Past Medical History Pertinent Past Medical History: Yes Neurological History: Seizures ENT History: Glaucoma Cardiac History: Hypertension Respiratory History: Pneumonia Endocrine Medical History: No Pertinent History Musculoskeletal History: Other GI Medical History: Other History: Other Psycho-Social History: No Pertinent History Male Reproductive Disorders: Other Other Medical History: HYDROCEPHALUS, ANEMIA, htn,GLAUCOMA, BRONCHITIS, incontinence , wheelchair, feeding tube, urinary retention. 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: No (per nursing care attendant) Significant Family History: no pertinent family hx - Nursing Vital Signs Nursing Vital Signs: Initial Vital Signs Temperature 102.6 F 06/06/19 00:00 Pulse Rate 163 H 06/06/19 00:00 Respiratory Rate 32 H 06/06/19 00:00 Blood Pressure 144/96 06/06/19 00:00 O2 Sat by Pulse Oximetry 100 06/06/19 00:00 Pain Scale Pain Intensity 0 - Physical Exam General Appearance: severe distress, lethargy, other (unresponsive) Eye Exam: PERRL/EOMI, eyes nml inspection Ears, Nose, Throat Exam: TMs normal, dry mucous membranes Neck Exam: normal inspection, non-tender, supple, full range of motion Respiratory Exam: respiratory distress, accessory muscle use, rhonchi (bilat) Cardiovascular Exam: tachycardia Gastrointestinal/Abdomen Exam: distention, hernia (reducible umbilical hernia. g tube in place and functional) Rectal Exam: not done Extremity Exam: deformities (chronic longstanding) Neurologic Exam: other (unresponsive lethargic) Skin Exam: mottled SpO2 Interpretation: hypoxic, ABG ordered - Course Nursing assessment & vital signs reviewed: Yes EKG Interpreted by Me: RATE (160), Sinus Tach, NORMAL AXIS, Non-specific ST Changes Ordered Tests: Active Orders 24 hr Category Date Time Status Catheter-Armona Ehrnández STAT Care 06/06/19 00:25 Active EKG-ER Only STAT Care 06/06/19 00:25 Active IV Insertion STAT Care 06/06/19 00:25 Active Pulse Oximetry (ED) STAT Care 06/06/19 00:25 Active ABDOMEN AND PELVIS W/0 CONTRAS [CT] Stat Exams 06/06/19 00:39 Taken CHEST 1 VIEW (PORTABLE) Stat Exams 06/06/19 00:26 Taken ARTERIAL BLOOD GASES Urgent Lab 06/06/19 00:25 Completed BLOOD CULTURE Stat Lab 06/06/19 00:53 Received CBC W DIFF Stat Lab 06/06/19 00:54 Completed CMP Stat Lab 06/06/19 00:54 Completed CULTURE,URINE Stat Lab 06/06/19 01:13 Received LIPASE Stat Lab 06/06/19 00:54 Completed Lactic Acid Stat Lab 06/06/19 00:25 Completed Lactic Acid Stat Lab 06/06/19 02:27 Ordered Falls Screen Stat Lab 06/06/19 00:54 Completed NT PRO BNP Stat Lab 06/06/19 00:54 Completed TROPONIN Q3H Lab 06/06/19 00:54 Completed TROPONIN Q3H Lab 06/06/19 03:30 Ordered TROPONIN Q3H Lab 06/06/19 06:30 Ordered TROPONIN Q3H Lab 06/06/19 09:30 Ordered TROPONIN Q3H Lab 06/06/19 12:30 Ordered UA W/RFX UR CULTURE Stat Lab 06/06/19 01:13 Completed Respiratory Therapy Assessment DAILY RT 06/06/19 01:16 Active Transfer Order Routine Transfer 06/06/19 Ordered Medication Summary Discontinued Medications Generic Name Dose Route Start Last Admin Trade Name Wallace PRN Reason Stop Dose Admin Acetaminophen 650 mg 06/06/19 00:25 06/06/19 00:50 F[place]all 650 Mg MO 06/06/19 00:26 650 mg STAT STA Administration Acetaminophen Confirm 06/06/19 00:49 Feverall 650 Mg Administered 06/06/19 00:50 Dose 650 mg .ROUTE .STK-MED ONE Aztreonam Confirm 06/06/19 02:10 Azactam 1 Gm Administered 06/06/19 02:11 Dose 1 gm .ROUTE .STK-MED ONE Sodium Chloride 1,000 mls @ 999 mls/hr 06/06/19 00:25 06/06/19 00:39 Sodium Chloride 0.9% 1000 Ml IV 06/06/19 01:25 999 mls/hr .Q1H1M STA Administration Sodium Chloride Confirm 06/06/19 00:38 Sodium Chloride 0.9% 1000 Ml Administered 06/06/19 00:39 Dose 1,000 mls @ ud .ROUTE .STK-MED ONE Sodium Chloride 1,000 mls @ 999 mls/hr 06/06/19 01:22 06/06/19 02:06 Sodium Chloride 0.9% 1000 Ml IV 06/06/19 02:22 999 mls/hr .Q1H1M STA Administration Aztreonam 1 gm in 100 mls @ 200 mls/hr 06/06/19 01:26 06/06/19 02:17 Azactam 1 Gm/100 Ml D5w IV 06/06/19 01:55 200 ml/hr STAT ONE 200 mls/hr Administration Vancomycin HCl 1 gm in 250 mls @ 167 mls/hr 06/06/19 01:26 06/06/19 02:03 Vancomycin 1gm/ Ns 250ml IV 06/06/19 02:55 167 mls/hr STAT ONE Administration Sodium Chloride Confirm 06/06/19 01:58 Sodium Chloride 0.9% 1000 Ml Administered 06/06/19 01:59 Dose 1,000 mls @ ud .ROUTE .STK-MED ONE Vancomycin HCl Confirm 06/06/19 01:58 Vancomycin 1gm/ Ns 250ml Administered 06/06/19 01:59 Dose 250 mls @ ud IV .STK-MED ONE Dextrose Confirm 06/06/19 02:10 D5w 100ml Mini Bag 100 Ml Administered 06/06/19 02:11 Dose 100 mls @ ud IV .STK-MED ONE Levalbuterol HCl 1.25 mg 06/06/19 01:17 06/06/19 01:31 Xopenex 1.25 Mg/0.5 Ml Ud Nebule IH 06/06/19 01:18 1.25 mg STAT ONE Administration Levalbuterol HCl Confirm 06/06/19 01:20 Xopenex 1.25 Mg/0.5 Ml Ud Nebule Administered 06/06/19 01:21 Dose 1.25 mg IH .STK-MED ONE Lab/Rad Data: Laboratory Result Diagrams 06/06/19 00:54 06/06/19 00:54 Laboratory Results 06/06/19 06/06/19 06/06/19 Range/Units 01:13 00:54 00:54 WBC (4.0-10.5) K/mm3 RBC (4.1-5.6) M/mm3 Hgb (12.5-18.0) gm/dl Hct (42-50) % MCV (78-100) fl MCH (26-32) pg MCHC (32-36) g/dl RDW (11.5-14.0) % Plt Count (150-450) K/mm3 MPV (6-9.5) fl Gran % (36.0-66.0) % Eos # (Auto) (0-0.5) Absolute Lymphs (auto) (1.0-4.6) Absolute Monos (auto) (0.0-1.3) Lymphocytes % (24.0-44.0) % Monocytes % (0.0-12.0) % Eosinophils % (0.00-5.0) % Basophils % (0.0-0.4) % Absolute Granulocytes (1.4-6.9) Basophils # (0-0.4) Puncture Site pCO2 (35-45) mmHg pO2 (75-100) mmHg Base Excess (-2.0-2.0) O2 Saturation (94-100) g/dF ABG pH (7.35-7.45) ABG HCO3 (22-28) ABG O2 Sat (Measured) (95-100) % Geoff Test A-a Gradient a/A Ratio Hemoglobin Carboxyhemoglobin (0.0-6.9) % THgb Methemoglobin (1.4-1.5) % Potassium (3.5-5.1) Temperature C POC O2 Flow Rate % Sodium (137-145) mmol/L Chloride (98-107) mmol/L Carbon Dioxide (22-30) mmol/L Anion Gap (5-15) MEQ/L BUN (9-20) mg/dL Creatinine (0.66-1.25) mg/dL Estimated GFR ML/MIN Glucose (74-106) mg/dL Lactic Acid (0.4-2.0) Calcium (8.4-10.2) mg/dL Total Bilirubin (0.2-1.3) mg/dL AST (17-59) U/L ALT (0-50) U/L Alkaline Phosphatase (38-126) U/L Troponin I 0.034 (0.000-0.034) ng/mL NT-Pro-B Natriuret Pep (0-900) pg/mL Serum Total Protein (6.3-8.2) g/dL Albumin (3.5-5.0) g/dL Lipase (23-300) U/L Urine Color KATHY (YELLOW) Urine Appearance CLOUDY (CLEAR) Urine pH 5.0 (5-6) Ur Specific Dix 1.026 (1.005-1.025) Urine Protein 100 (Negative) Urine Ketones TRACE (NEGATIVE) Urine Blood NEGATIVE (0-5) Donis/ul Urine Nitrite NEGATIVE (NEGATIVE) Urine Bilirubin NEGATIVE (NEGATIVE) Urine Urobilinogen 2 (0-1) mg/dL Ur Leukocyte Esterase SMALL (NEGATIVE) Urine WBC (Auto) 16-25 (0-5) /HPF Urine RBC (Auto) 11-15 (0-2) /HPF U Epithel Cells (Auto) RARE (FEW) /HPF Urine Bacteria (Auto) RARE (NEGATIVE) /HPF Urine Mucus (Auto) SLIGHT (NEGATIVE) /HPF Urine Culture Reflexed ORDERED SEPARATELY (NO) Urine Glucose 50 (NEGATIVE) mg/dL Valproic Acid (50-100) ug/mL Monoscreen POSITIVE (Negative) Influenza Type A Ag (NEGATIVE) Influenza Type B Ag (NEGATIVE) RSV (PCR) (Negative) Group A Strep Antibody (NEGATIVE) 06/06/19 06/06/19 06/06/19 Range/Units 00:54 00:54 00:53 WBC 13.4 H (4.0-10.5) K/mm3 RBC 4.35 (4.1-5.6) M/mm3 Hgb 15.6 (12.5-18.0) gm/dl Hct 44.8 (42-50) % MCV 103.0 H (78-100) fl MCH 35.9 H (26-32) pg MCHC 34.8 (32-36) g/dl RDW 13.0 (11.5-14.0) % Plt Count 193 (150-450) K/mm3 MPV 12.1 H (6-9.5) fl Gran % 81.0 H (36.0-66.0) % Eos # (Auto) 0.01 (0-0.5) Absolute Lymphs (auto) 1.24 (1.0-4.6) Absolute Monos (auto) 1.28 (0.0-1.3) Lymphocytes % 9.3 L (24.0-44.0) % Monocytes % 9.6 (0.0-12.0) % Eosinophils % 0.1 (0.00-5.0) % Basophils % 0.0 (0.0-0.4) % Absolute Granulocytes 10.86 H (1.4-6.9) Basophils # 0 (0-0.4) Puncture Site pCO2 (35-45) mmHg pO2 (75-100) mmHg Base Excess (-2.0-2.0) O2 Saturation (94-100) g/dF ABG pH (7.35-7.45) ABG HCO3 (22-28) ABG O2 Sat (Measured) (95-100) % Geoff Test A-a Gradient a/A Ratio Hemoglobin Carboxyhemoglobin (0.0-6.9) % THgb Methemoglobin (1.4-1.5) % Potassium 4.0 (3.5-5.1) Temperature C POC O2 Flow Rate % Sodium 147 H (137-145) mmol/L Chloride 108 H (98-107) mmol/L Carbon Dioxide 22 (22-30) mmol/L Anion Gap 21.3 H (5-15) MEQ/L BUN 55 H (9-20) mg/dL Creatinine 1.10 (0.66-1.25) mg/dL Estimated GFR > 60.0 ML/MIN Glucose 252 H (74-106) mg/dL Lactic Acid (0.4-2.0) Calcium 8.7 (8.4-10.2) mg/dL Total Bilirubin 0.50 (0.2-1.3) mg/dL AST 26 (17-59) U/L ALT 24 (0-50) U/L Alkaline Phosphatase 67 (38-126) U/L Troponin I (0.000-0.034) ng/mL NT-Pro-B Natriuret Pep 1380 H (0-900) pg/mL Serum Total Protein 7.9 (6.3-8.2) g/dL Albumin 4.0 (3.5-5.0) g/dL Lipase 89 (23-300) U/L Urine Color (YELLOW) Urine Appearance (CLEAR) Urine pH (5-6) Ur Specific Dix (1.005-1.025) Urine Protein (Negative) Urine Ketones (NEGATIVE) Urine Blood (0-5) Donis/ul Urine Nitrite (NEGATIVE) Urine Bilirubin (NEGATIVE) Urine Urobilinogen (0-1) mg/dL Ur Leukocyte Esterase (NEGATIVE) Urine WBC (Auto) (0-5) /HPF Urine RBC (Auto) (0-2) /HPF U Epithel Cells (Auto) (FEW) /HPF Urine Bacteria (Auto) (NEGATIVE) /HPF Urine Mucus (Auto) (NEGATIVE) /HPF Urine Culture Reflexed (NO) Urine Glucose (NEGATIVE) mg/dL Valproic Acid (50-100) ug/mL Monoscreen (Negative) Influenza Type A Ag NEGATIVE (NEGATIVE) Influenza Type B Ag NEGATIVE (NEGATIVE) RSV (PCR) NEGATIVE (Negative) Group A Strep Antibody NEGATIVE (NEGATIVE) 06/06/19 06/06/19 06/06/19 Range/Units 00:53 00:25 00:25 WBC (4.0-10.5) K/mm3 RBC (4.1-5.6) M/mm3 Hgb (12.5-18.0) gm/dl Hct (42-50) % MCV (78-100) fl MCH (26-32) pg MCHC (32-36) g/dl RDW (11.5-14.0) % Plt Count (150-450) K/mm3 MPV (6-9.5) fl Gran % (36.0-66.0) % Eos # (Auto) (0-0.5) Absolute Lymphs (auto) (1.0-4.6) Absolute Monos (auto) (0.0-1.3) Lymphocytes % (24.0-44.0) % Monocytes % (0.0-12.0) % Eosinophils % (0.00-5.0) % Basophils % (0.0-0.4) % Absolute Granulocytes (1.4-6.9) Basophils # (0-0.4) Puncture Site RIGHT BRACHIAL pCO2 39 (35-45) mmHg pO2 70 L (75-100) mmHg Base Excess -5.5 L (-2.0-2.0) O2 Saturation 92.7 L (94-100) g/dF ABG pH 7.32 L (7.35-7.45) ABG HCO3 20.1 L (22-28) ABG O2 Sat (Measured) 95.9 (95-100) % Geoff Test YES A-a Gradient 238 a/A Ratio 0.23 Hemoglobin 15.9 Carboxyhemoglobin 2.5 (0.0-6.9) % THgb Methemoglobin 0.7 L (1.4-1.5) % Potassium 3.9 (3.5-5.1) Temperature 37.0 C POC O2 Flow Rate 50 % Sodium (137-145) mmol/L Chloride (98-107) mmol/L Carbon Dioxide (22-30) mmol/L Anion Gap (5-15) MEQ/L BUN (9-20) mg/dL Creatinine (0.66-1.25) mg/dL Estimated GFR ML/MIN Glucose (74-106) mg/dL Lactic Acid 5.1 H (0.4-2.0) Calcium (8.4-10.2) mg/dL Total Bilirubin (0.2-1.3) mg/dL AST (17-59) U/L ALT (0-50) U/L Alkaline Phosphatase (38-126) U/L Troponin I (0.000-0.034) ng/mL NT-Pro-B Natriuret Pep (0-900) pg/mL Serum Total Protein (6.3-8.2) g/dL Albumin (3.5-5.0) g/dL Lipase (23-300) U/L Urine Color (YELLOW) Urine Appearance (CLEAR) Urine pH (5-6) Ur Specific Dix (1.005-1.025) Urine Protein (Negative) Urine Ketones (NEGATIVE) Urine Blood (0-5) Donis/ul Urine Nitrite (NEGATIVE) Urine Bilirubin (NEGATIVE) Urine Urobilinogen (0-1) mg/dL Ur Leukocyte Esterase (NEGATIVE) Urine WBC (Auto) (0-5) /HPF Urine RBC (Auto) (0-2) /HPF U Epithel Cells (Auto) (FEW) /HPF Urine Bacteria (Auto) (NEGATIVE) /HPF Urine Mucus (Auto) (NEGATIVE) /HPF Urine Culture Reflexed (NO) Urine Glucose (NEGATIVE) mg/dL Valproic Acid 95.7 (50-100) ug/mL Monoscreen (Negative) Influenza Type A Ag (NEGATIVE) Influenza Type B Ag (NEGATIVE) RSV (PCR) (Negative) Group A Strep Antibody (NEGATIVE) - Progress Progress Note: 06/06/19 01:15 cxr-right middle lobe infiltrate. spoke with pts legal guardians yovanny and meghna bassett. after discussing pts recent hx, medical condition, diff dx and results of current labs and cxr findings. i discussed pts sepsis status. after discussing the above, they have opted for a DNR status. no chemical or electrical intervention in the event of a lethal cardiac rhythm and no mechanical ventilation in a cardiac or respiratory arrest. 06/06/19 03:43 ct abd/pelvis-portal venous gas in liver. differential includes bowel ischemia related to obstruction or bowel inflammation. distension righ colon. bilateral lower lobe atelectasis and consolidation [address] redmond. i reviewed pt hx, condition, labs, xray results with her. she is aware of dnr status. will continue rt care, bipap, ivf and iv antibx and repeat labs this am. 033 spoke with pts legal guardians, pts brother and sister in law, Yovanny and Meghna Bassett at [phone]. the are aware pt is in a grave condition. for now they agree to above plan but DNR status. they will make decisions on continuing care pending pt response to our tx. Discussed with : Gerald Counseled pt/family regarding: lab results, diagnosis, rad results - Departure Departure Disposition: In-patient Admission Clinical Impression: Hypoxic, Pneumonia, Mononucleosis, UTI (urinary tract infection), Sepsis, Tachycardia Condition: Critical Critical Care Time: Yes Critical Care Time(excluding separately billable procedures): Critical 75-104 mins Referrals: TATY ANNE MD [Primary Care Provider] -
[2019-06-06] MEDS ORDERED: FEVERALL 650 MG PR STA (00:25)
[2019-06-06] MEDS ORDERED: Sodium Chloride 0.9% 1000 ML 1,000 ML IV STA ×2 (00:25→01:22)
[2019-06-06] MEDS ORDERED: Sodium Chloride 0.9% 1000 ML 1,000 ML ONE ×2 (00:38→01:58)
[2019-06-06 00:45] LABS: A-aADO2 238; ABG HEMOGLOBIN 15.9; ABG POTASSIUM 3.9 (3.5-5.1); ABG SITE RIGHT BRACHIAL; ALLEN TEST OK? YES; ARTERIAL BLD GAS O2 SATURATION 95.9 % (95-100); ARTERIAL BLOOD GAS BASE EXCESS -5.5 (-2.0-2.0); ARTERIAL BLOOD GAS FIO2 50 %; ARTERIAL BLOOD GAS PCO2 39 mmHg (35-45); ARTERIAL BLOOD GAS PO2 70 mmHg (75-100); ARTERIAL BLOOD GAS pH 7.32 (7.35-7.45); CARBOXYHEMOGLOBIN 2.5 % THgb (0.0-6.9); HCO3- 20.1 (22-28); HGB O2 SAT 92.7 g/dF (94-100); Methhemoglobin 0.7 % (1.4-1.5); paO2 pAO1 0.23
[2019-06-06] MEDS ORDERED: FEVERALL 650 MG ONE (00:49)
[2019-06-06 00:52] LABS: Lactic Acid 5.1 (0.4-2.0)
[2019-06-06 00:54] LABS: Absolute Neutrophil Ct (ANC) 10.86 (1.4-6.9); Basophil (Absolute #) 0 (0-0.4); Eosinophil % 0.1 % (0.00-5.0); Eosinophil (Absolute #) 0.01 (0-0.5); Hematocrit 44.8 % (42-50); Hemoglobin 15.6 gm/dl (12.5-18.0); Lymphocyte (Absolute #) 1.24 (1.0-4.6); Lymphocytes % 9.3 % (24.0-44.0); Mean Corpuscular Hemoglobin 35.9 pg (26-32); Mean Corpuscular Hgb Concent. 34.8 g/dl (32-36); Mean Platelet Volume 12.1 fl (6-9.5); Monocyte (Absolute #) 1.28 (0.0-1.3); Monocytes % 9.6 % (0.0-12.0); Platelet Count 193 K/mm3 (150-450); Red Blood Count 4.35 M/mm3 (4.1-5.6); White Blood Count 13.4 K/mm3 (4.0-10.5)
[2019-06-06 01:16] LABS: Appearance CLOUDY (CLEAR); Bacteria RARE /HPF (NEGATIVE); Bilirubin NEGATIVE (NEGATIVE); Blood NEGATIVE Ery/ul (0-5); Epithelial Cells RARE /HPF (FEW); Glucose 50 mg/dL (NEGATIVE); Ketones TRACE (NEGATIVE); Leukocyte Esterase SMALL (NEGATIVE); Mucus SLIGHT /HPF (NEGATIVE); Nitrite NEGATIVE (NEGATIVE); Protein,Urine Dip 100 (Negative); Specific Gravity 1.026 (1.005-1.025); Urobilinogen 2 mg/dL (0-1)
[2019-06-06] MEDS ORDERED: Xopenex 1.25 MG/0.5 ML UD NEBULE IH ONE ×2 (01:17→01:20)
[2019-06-06 01:18] LABS: ALKALINE PHOSPHATASE 67 U/L (38-126); ANION GAP 21.3 MEQ/L (5-15); BLOOD UREA NITROGEN 55 mg/dL (9-20); CHLORIDE 108 mmol/L (98-107); Calcium 8.7 mg/dL (8.4-10.2); Carbon Dioxide 22 mmol/L (22-30); Glucose 252 mg/dL (74-106); LIPASE 89 U/L (23-300); NT PRO BNP 1380 pg/mL (0-900); SGOT/AST 26 U/L (17-59); SGPT/ALT 24 U/L (0-50); SODIUM 147 mmol/L (137-145); Total Protein 7.9 g/dL (6.3-8.2)
[2019-06-06] MEDS ORDERED: Vancomycin 1GM/ Ns 250ML*** 1 GM/250 ML IVPB IV ONE (01:26)
[2019-06-06] MEDS ORDERED: Azactam 1 GM/100 ML D5W 1 GM/100 ML IVPB IV ONE (01:26)
[2019-06-06 01:31] LABS: Group A Strep NEGATIVE (NEGATIVE); INFLUENZA A NEGATIVE (NEGATIVE); INFLUENZA B NEGATIVE (NEGATIVE); RESPIRATORY SYNCTIAL VIRUS NEGATIVE (Negative)
[2019-06-06] MEDS ORDERED: Vancomycin 1GM/ Ns 250ML*** 250 ML IV ONE (01:58)
[2019-06-06] MEDS ORDERED: AZACTAM 1 GM ONE (02:10)
[2019-06-06] MEDS ORDERED: D5w 100ML Mini Bag 100 ML 100 ML IV ONE (02:10)
[2019-06-06 04:11] LABS: A-aADO2 569; ABG HEMOGLOBIN 14.7; ABG POTASSIUM 3.5 (3.5-5.1); ARTERIAL BLD GAS O2 SATURATION 95.7 % (95-100); ARTERIAL BLOOD GAS BASE EXCESS -7.2 (-2.0-2.0); ARTERIAL BLOOD GAS FIO2 100 %; ARTERIAL BLOOD GAS PCO2 57 mmHg (35-45); ARTERIAL BLOOD GAS PO2 73 mmHg (75-100); CARBOXYHEMOGLOBIN 4.8 % THgb (0.0-6.9); HCO3- 21.8 (22-28); HGB O2 SAT 90.1 g/dF (94-100); Methhemoglobin 1.1 % (1.4-1.5); paO2 pAO1 0.11
[2019-06-06 04:12] LABS: ARTERIAL BLOOD GAS pH 7.19 (7.35-7.45)
[2019-06-06 04:13] LABS: ABG SITE RIGHT BRACHIAL; ALLEN TEST OK? YES
[2019-06-06] MEDS: Sodium Chloride 0.9% 1000 ML 1,000 ML IV SCH ×4 (05:05→23:17)
[2019-06-06] MEDS: FEVERALL 650 MG PR PRN ×3 (05:05→13:10)
[2019-06-06] MEDS ORDERED: Azactam 1 GM/100 ML D5W 1 GM/100 ML IVPB IV SCH (06:00)
[2019-06-06 07:37] LABS: A-aADO2 575; ABG HEMOGLOBIN 15.4; ABG POTASSIUM 3.5 (3.5-5.1); ABG SITE RIGHT RADIAL; ARTERIAL BLD GAS O2 SATURATION 97.9 % (95-100); ARTERIAL BLOOD GAS BASE EXCESS -4.1 (-2.0-2.0); ARTERIAL BLOOD GAS FIO2 100 %; ARTERIAL BLOOD GAS PCO2 46 mmHg (35-45); ARTERIAL BLOOD GAS PO2 81 mmHg (75-100); ARTERIAL BLOOD GAS VENT MODE BiPAP; CARBOXYHEMOGLOBIN 2.2 % THgb (0.0-6.9); HCO3- 22.6 (22-28); HGB O2 SAT 94.8 g/dF (94-100); Methhemoglobin 1.1 % (1.4-1.5); paO2 pAO1 0.12
[2019-06-06] MEDS ORDERED: Phenobarbital 65 MG/ML INJ. IV ONE (07:52)
[2019-06-06] MEDS ORDERED: Ativan 2 MG/1 ML VIAL IV PRN (07:56)
[2019-06-06 08:22] LABS: Lactic Acid 2.6 (0.4-2.0)
[2019-06-06] MEDS ORDERED: Motrin 100 MG/5 ML PO ONE (08:33)
--- NOTE | 2019-06-06 08:40 | XRAY ---
Exam: AP semierect upright portable chest film from 6:54 AM from 06/06/2019. Comparison: AP portable supine chest film from 12:51 AM on 06/06/2019 and AP semi-upright portable chest film from 12/04/2018. Indication: Cough, fever, right-sided pneumonia. Findings: The study was obtained in a lordotic projection. The patient is rotated slightly toward the left. The transverse heart size appears within normal limits. Lung volumes are low. There is moderate elevation/eventration right hemidiaphragm with abundant bowel gas seen beneath the right hemidiaphragm. There is interposition of the hepatic flexure of the colon with the liver. Dense right perihilar airspace disease is seen consistent with pneumonia. A transverse band of discoid atelectasis and possibly some infiltrate are seen within the left midlung zone. There also appears to be some focally dense airspace disease behind the heart at the medial left lung base. No pneumothorax or definite pleural fluid is seen. I again see some right neck tubing which appears unchanged dating back to 02/03/2018. Correlate clinically. There is some lower thoracic kyphoscoliosis. Impression: 1. Focally dense airspace disease is seen overlying the right hilum and at the medial left lung base behind the heart. There also appears to be some transversely oriented discoid atelectasis and perhaps minimal superimposed infiltrate within the left midlung field. The findings are suggestive of bilateral pneumonia. This represents some worsening from the earlier chest film from today. 2. Moderate elevation/eventration of the right hemidiaphragm with interposition of the hepatic flexure of the colon with the liver in the right upper quadrant. 3. The lung hart appear hypoinflated.
--- NOTE | 2019-06-06 08:41 | XRAY ---
Exam: AP supine portable chest film from 12:51 AM on 06/06/2019. Comparison: AP semierect upright portable chest film from 12/04/2018. Indication: Tachypnea, abdominal distention. Findings: Lung volumes are decreased. There is mild elevation of the right hemidiaphragm. The heart size is normal. A prominent tube overlies the middle third of the chest. EKG leads are seen in place. I again note some radiopaque tubing overlying the right side of the neck representing no change from 12/04/2018. Correlate clinically. Right suprahilar infiltrate and perhaps some atelectasis are seen. There is also some questionable minimal infiltrate/atelectasis lateral to the left hilum. No other active lung disease is seen. No pulmonary vascular congestion, pneumothorax, or pleural fluid is seen. Abundant bowel gas is seen across the upper abdomen. Correlate clinically. Minimal convexity of the lower thoracic spine toward the right is seen. Impression: 1. Mild focal airspace disease is seen within the right suprahilar projection and just lateral to the left hilum. This could reflect mild pulmonary infiltrates, with or without atelectasis. 2. Lung volumes are low with mild elevation/eventration of the right hemidiaphragm. 3. No other acute cardiopulmonary disease is seen. 4. Abundant bowel gas is seen across the visualized upper abdomen. Correlate clinically.
[2019-06-06 08:49] LABS: BLOOD UREA NITROGEN 47 mg/dL (9-20); CHLORIDE 114 mmol/L (98-107); Carbon Dioxide 23 mmol/L (22-30); Glucose 130 mg/dL (74-106); PREALBUMIN 13.93 mg/dL (17.6-36.0); Potassium 3.6 mmol/L (3.5-5.1); SODIUM 148 mmol/L (137-145)
--- NOTE | 2019-06-06 09:03 | PCM.HP ---
History of Present Illness - Chief Complaint Chief Complaint: Sepsis, PNE, UTI, [place], Hypoxia, Tachycardia Date: 06/06/19 History of Present Illness: is a 63 year old male seen this am following ER admission for sepsis UTI unreponsiveness and pneumonia. Patient is non verbal. Information obtained from ER record: Unresponsive white male with cerebral palsy, who [facility] [place] a [facility], presents via EMS. 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 Pt has with a peg tube in place. Pt is nonverbal at baseline. Tonight he is unresponsive. Pt is DNR. medical problems include: seizure disorder(on valproic acid), dysphagia(gastric tube in place), expressive/receptive communication disorder. additional hx provided by health care worker includes pt having vomiting and diarrhea since thursday 5pm on 06/04/19. Pt last urinated same day at 2300. Er physician reports that patient was requiring bipap and that family did not want the patient intubated. Patient has legal guardian in [place] which is his brother and his brother's . They were notified of the patient's poor condition. They wanted to continue with DNR status and affirmed the patient was not to be intubated. Patient was started on antibiotics, antipyretics and IV fluids in ER. Patient has oleary cath in place and peg tube. Patient this am was connected via peg tube to wall suction. Patient did not respond to any questions and eyes remained closed during exam. - Review of Systems All Other Systems: Unable due to condition (Patient is nonverbal hx of cerebral palsy, peg tube and currently has IO left tib/fib and oleary cath) Medications & Allergies Home Medications: Home Medication List Lisinopril 20 mg [Zestril 20 MG] 10 mg PEG DAILY 02/09/17 [History Confirmed 06/06/19] Phenobarbital 20 mg/5 ml [Phenobarbital 20 mg/5 ml Elixir] 15 ml PEG DAILY 02/09/17 [History Confirmed 06/06/19] Valproic Acid 250 mg/5 ml [Depakene 250 MG/5 ML Syrup] 15 ml PEG BID 02/09 [History Confirmed 06/06/19] Tizanidine HCl 8 mg PEG DAILY 11/17/18 [History Confirmed 06/06/19] Polyethylene Glycol 3350 [Miralax] 17 g G-TUBE DAILY 01/16/19 [History Confirmed 06/06/19] Psyllium Husk (with Sugar) [Metamucil Packet] 3.4 gm G-TUBE DAILY 01/16/19 [ History Confirmed 06/06/19] Sennosides [Senna] 8.6 mg G-TUBE DAILY 01/16/19 [History Confirmed 06/06/19] Amlodipine Besylate 5 mg PEG DAILY 06/06/19 [History Confirmed 06/06/19] Electrolytes/Dextrose [Pedialyte] 60 ml PEG TID 06/06/19 [History Confirmed 03/17] Melatonin 1 mg PEG HS 06/06/19 [History Confirmed 06/06/19] Tamsulosin HCl 0.4 mg [Flomax 0.4 MG] 0.4 mg PO DAILY 06/06/19 [History Confirmed 06/06/19] Travoprost (Benzalkonium) [Travatan 0.004% Eye Drop] 2.5 ml OP DAILY 06/06/19 [ History Confirmed 06/06/19] Allergies/Adverse Reactions: Allergies Allergy/AdvReac Type Severity Reaction Status Date / Time amoxicillin [From Augmentin] Allergy Unknown Verified 04/17/19 15:09 [email or web address] Allergy Unknown Verified 04/17/19 15:09 clavulanic acid Allergy Unknown Verified 04/17/19 15:09 [From Augmentin] codeine Allergy Unknown Verified 04/17/19 15:09 Sulfa (Sulfonamide Allergy Unknown Verified 04/17/19 15:09 Antibiotics) zinc oxide Allergy Unknown Verified 04/17/19 15:09 [email or web address] AdvReac Unknown Rash Verified 04/17/19 15:09 Penicillins AdvReac Unknown Verified 04/17/19 15:09 - Past Medical History Past Medical History: Yes Neurological History: Seizures ENT History: Glaucoma Cardiac History: Hypertension Respiratory History: Pneumonia Endocrine Medical History: No Pertinent History Musculoskelatal History: Other GI Medical History: Other History: Other Pyscho-Social History: No Pertinent History Male Reproductive Disorders: Other Comment: HYDROCEPHALUS, ANEMIA, htn,GLAUCOMA, BRONCHITIS, incontinence , wheelchair, feeding tube, urinary retention. unable to update, used recall for hx - Past Surgical History Past Surgical History: Yes Neuro Surgical History: Brain Shunt Cardiac History: No Pertinent History Respiratory Surgery: No Pertinent History GI Surgical History: No Pertinent History Genitourinary Surgical Hx: No Pertinent History Musculskeletal Surgical Hx: Other Male Surgical History: No Pertinent History Other Surgical History: SHUNT TO HEAD, peg feeding tube placed and replaced - Social History Smoking Status: Unknown if ever smoked Exposure to second hand smoke: No Alcohol: None Drug Use: none Significant Family History: no pertinent family hx - Physical Exam Vital Signs: Vital Signs - 24 hr Temp Pulse Resp BP Pulse Ox 06/06/19 08:00 161 H 06/06/19 07:28 101.7 F 141 H 35 H 109/70 95 06/06/19 05:28 101.3 F 130 H 31 H 105/64 93 L 06/06/19 04:49 155 H 35 H 87 L 06/06/19 03:50 155 H 29 H 164/89 87 L 06/06/19 03:40 157 H 35 H 142/98 88 L 06/06/19 02:50 101.3 F 157 H 28 H 187/97 83 L 06/06/19 02:36 101.7 F 153 H 32 H 139/88 87 L 06/06/19 01:31 132 H 35 H 93 L 06/06/19 00:52 103.8 F 132 H 41 H 105/76 93 L 06/06/19 00:34 92 L 06/06/19 00:15 102.6 F 156 H 38 H 121/89 93 L 06/06/19 00:00 102.6 F 163 H 32 H 144/96 100 Oxygen-Last 24 hours O2 Percentage 100% O2 Percentage 100% O2 Percentage 100% O2 Percentage 100% O2 Percentage 100% O2 Percentage 100% O2 Percentage 100% O2 Percentage 100% O2 Percentage 100% General Appearance: severe distress (Patient has labored breathing and is wearing bipap mask.) Neurologic Exam: other (Patient did not repond during physical exam. Patient is nonverbal at baseline.), No alert, No oriented x 3 Eye Exam: other (Did not open eyes during exam) Ears, Nose, Throat Exam: moist mucous membranes Neck Exam: other (Patient's had kyphotic neck) Respiratory Exam: respiratory distress, crackles/rales, other (Patient has labored breathing on bipap at 100%), No normal breath sounds, No lungs clear Cardiovascular Exam: tachycardia, No murmur, No friction rub, No gallop Gastrointestinal/Abdomen Exam: soft, other (peg tube) Male Genitalia Exam: other (Oleary cath) Extremity Exam: other (MSK abnormalities due to cerebral palsy. Patient has IO left tib fib), No pedal edema, No swelling Skin Exam: warm, dry, diaphoresis, pale Results - Labs Lab/Micro Results: Lab Results-Last 24 Hours 06/06/19 06/06/19 06/06/19 Range/Units 00:25 00:25 00:53 WBC (4.0-10.5) K/mm3 RBC (4.1-5.6) M/mm3 Hgb (12.5-18.0) gm/dl Hct (42-50) % MCV (78-100) fl MCH (26-32) pg MCHC (32-36) g/dl RDW (11.5-14.0) % Plt Count (150-450) K/mm3 MPV (6-9.5) fl Gran % (36.0-66.0) % Eos # (Auto) (0-0.5) Absolute Lymphs (auto) (1.0-4.6) Absolute Monos (auto) (0.0-1.3) Lymphocytes % (24.0-44.0) % Monocytes % (0.0-12.0) % Eosinophils % (0.00-5.0) % Basophils % (0.0-0.4) % Absolute Granulocytes (1.4-6.9) Basophils # (0-0.4) Puncture Site RIGHT BRACHIAL pCO2 39 (35-45) mmHg pO2 70 L (75-100) mmHg Base Excess -5.5 L (-2.0-2.0) O2 Saturation 92.7 L (94-100) g/dF ABG pH 7.32 L (7.35-7.45) ABG HCO3 20.1 L (22-28) ABG O2 Sat (Measured) 95.9 (95-100) % Geoff Test YES A-a Gradient 238 a/A Ratio 0.23 Hemoglobin 15.9 Carboxyhemoglobin 2.5 (0.0-6.9) % THgb Methemoglobin 0.7 L (1.4-1.5) % Potassium 3.9 (3.5-5.1) Temperature 37.0 C POC O2 Flow Rate 50 % Vent Mode Inspiratory BiPAP Expiratory BiPAP Sodium (137-145) mmol/L Chloride (98-107) mmol/L Carbon Dioxide (22-30) mmol/L Anion Gap (5-15) MEQ/L BUN (9-20) mg/dL Creatinine (0.66-1.25) mg/dL Estimated GFR ML/MIN Glucose (74-106) mg/dL Lactic Acid 5.1 H (0.4-2.0) Calcium (8.4-10.2) mg/dL Total Bilirubin (0.2-1.3) mg/dL AST (17-59) U/L ALT (0-50) U/L Alkaline Phosphatase (38-126) U/L Troponin I (0.000-0.034) ng/mL NT-Pro-B Natriuret Pep (0-900) pg/mL Serum Total Protein (6.3-8.2) g/dL Albumin (3.5-5.0) g/dL Prealbumin (17.6-36.0) mg/dL Lipase (23-300) U/L Urine Color (YELLOW) Urine Appearance (CLEAR) Urine pH (5-6) Ur Specific [place] (1.005-1.025) Urine Protein (Negative) Urine Ketones (NEGATIVE) Urine Blood (0-5) Donis/ul Urine Nitrite (NEGATIVE) Urine Bilirubin (NEGATIVE) Urine Urobilinogen (0-1) mg/dL Ur Leukocyte Esterase (NEGATIVE) Urine WBC (Auto) (0-5) /HPF Urine RBC (Auto) (0-2) /HPF U Epithel Cells (Auto) (FEW) /HPF Urine Bacteria (Auto) (NEGATIVE) /HPF Urine Mucus (Auto) (NEGATIVE) /HPF Urine Culture Reflexed (NO) Urine Glucose (NEGATIVE) mg/dL Valproic Acid 95.7 (50-100) ug/mL Monoscreen (Negative) Influenza Type A Ag (NEGATIVE) Influenza Type B Ag (NEGATIVE) RSV (PCR) (Negative) Group A Strep Antibody (NEGATIVE) 06/06/19 06/06/19 06/06/19 Range/Units 00:53 00:54 00:54 WBC 13.4 H (4.0-10.5) K/mm3 RBC 4.35 (4.1-5.6) M/mm3 Hgb 15.6 (12.5-18.0) gm/dl Hct 44.8 (42-50) % MCV 103.0 H (78-100) fl MCH 35.9 H (26-32) pg MCHC 34.8 (32-36) g/dl RDW 13.0 (11.5-14.0) % Plt Count 193 (150-450) K/mm3 MPV 12.1 H (6-9.5) fl Gran % 81.0 H (36.0-66.0) % Eos # (Auto) 0.01 (0-0.5) Absolute Lymphs (auto) 1.24 (1.0-4.6) Absolute Monos (auto) 1.28 (0.0-1.3) Lymphocytes % 9.3 L (24.0-44.0) % Monocytes % 9.6 (0.0-12.0) % Eosinophils % 0.1 (0.00-5.0) % Basophils % 0.0 (0.0-0.4) % Absolute Granulocytes 10.86 H (1.4-6.9) Basophils # 0 (0-0.4) Puncture Site pCO2 (35-45) mmHg pO2 (75-100) mmHg Base Excess (-2.0-2.0) O2 Saturation (94-100) g/dF ABG pH (7.35-7.45) ABG HCO3 (22-28) ABG O2 Sat (Measured) (95-100) % Geoff Test A-a Gradient a/A Ratio Hemoglobin Carboxyhemoglobin (0.0-6.9) % THgb Methemoglobin (1.4-1.5) % Potassium 4.0 (3.5-5.1) Temperature C POC O2 Flow Rate % Vent Mode Inspiratory BiPAP Expiratory BiPAP Sodium 147 H (137-145) mmol/L Chloride 108 H (98-107) mmol/L Carbon Dioxide 22 (22-30) mmol/L Anion Gap 21.3 H (5-15) MEQ/L BUN 55 H (9-20) mg/dL Creatinine 1.10 (0.66-1.25) mg/dL Estimated GFR > 60.0 ML/MIN Glucose 252 H (74-106) mg/dL Lactic Acid (0.4-2.0) Calcium 8.7 (8.4-10.2) mg/dL Total Bilirubin 0.50 (0.2-1.3) mg/dL AST 26 (17-59) U/L ALT 24 (0-50) U/L Alkaline Phosphatase 67 (38-126) U/L Troponin I (0.000-0.034) ng/mL NT-Pro-B Natriuret Pep 1380 H (0-900) pg/mL Serum Total Protein 7.9 (6.3-8.2) g/dL Albumin 4.0 (3.5-5.0) g/dL Prealbumin (17.6-36.0) mg/dL Lipase 89 (23-300) U/L Urine Color (YELLOW) Urine Appearance (CLEAR) Urine pH (5-6) Ur Specific [place] (1.005-1.025) Urine Protein (Negative) Urine Ketones (NEGATIVE) Urine Blood (0-5) Donis/ul Urine Nitrite (NEGATIVE) Urine Bilirubin (NEGATIVE) Urine Urobilinogen (0-1) mg/dL Ur Leukocyte Esterase (NEGATIVE) Urine WBC (Auto) (0-5) /HPF Urine RBC (Auto) (0-2) /HPF U Epithel Cells (Auto) (FEW) /HPF Urine Bacteria (Auto) (NEGATIVE) /HPF Urine Mucus (Auto) (NEGATIVE) /HPF Urine Culture Reflexed (NO) Urine Glucose (NEGATIVE) mg/dL Valproic Acid (50-100) ug/mL Monoscreen (Negative) Influenza Type A Ag NEGATIVE (NEGATIVE) Influenza Type B Ag NEGATIVE (NEGATIVE) RSV (PCR) NEGATIVE (Negative) Group A Strep Antibody NEGATIVE (NEGATIVE) 06/06/19 06/06/19 06/06/19 Range/Units 00:54 00:54 01:13 WBC (4.0-10.5) K/mm3 RBC (4.1-5.6) M/mm3 Hgb (12.5-18.0) gm/dl Hct (42-50) % MCV (78-100) fl MCH (26-32) pg MCHC (32-36) g/dl RDW (11.5-14.0) % Plt Count (150-450) K/mm3 MPV (6-9.5) fl Gran % (36.0-66.0) % Eos # (Auto) (0-0.5) Absolute Lymphs (auto) (1.0-4.6) Absolute Monos (auto) (0.0-1.3) Lymphocytes % (24.0-44.0) % Monocytes % (0.0-12.0) % Eosinophils % (0.00-5.0) % Basophils % (0.0-0.4) % Absolute Granulocytes (1.4-6.9) Basophils # (0-0.4) Puncture Site pCO2 (35-45) mmHg pO2 (75-100) mmHg Base Excess (-2.0-2.0) O2 Saturation (94-100) g/dF ABG pH (7.35-7.45) ABG HCO3 (22-28) ABG O2 Sat (Measured) (95-100) % Geoff Test A-a Gradient a/A Ratio Hemoglobin Carboxyhemoglobin (0.0-6.9) % THgb Methemoglobin (1.4-1.5) % Potassium (3.5-5.1) Temperature C POC O2 Flow Rate % Vent Mode Inspiratory BiPAP Expiratory BiPAP Sodium (137-145) mmol/L Chloride (98-107) mmol/L Carbon Dioxide (22-30) mmol/L Anion Gap (5-15) MEQ/L BUN (9-20) mg/dL Creatinine (0.66-1.25) mg/dL Estimated GFR ML/MIN Glucose (74-106) mg/dL Lactic Acid (0.4-2.0) Calcium (8.4-10.2) mg/dL Total Bilirubin (0.2-1.3) mg/dL AST (17-59) U/L ALT (0-50) U/L Alkaline Phosphatase (38-126) U/L Troponin I 0.034 (0.000-0.034) ng/mL NT-Pro-B Natriuret Pep (0-900) pg/mL Serum Total Protein (6.3-8.2) g/dL Albumin (3.5-5.0) g/dL Prealbumin (17.6-36.0) mg/dL Lipase (23-300) U/L Urine Color KATHY (YELLOW) Urine Appearance CLOUDY (CLEAR) Urine pH 5.0 (5-6) Ur Specific [place] 1.026 (1.005-1.025) Urine Protein 100 (Negative) Urine Ketones TRACE (NEGATIVE) Urine Blood NEGATIVE (0-5) Donis/ul Urine Nitrite NEGATIVE (NEGATIVE) Urine Bilirubin NEGATIVE (NEGATIVE) Urine Urobilinogen 2 (0-1) mg/dL Ur Leukocyte Esterase SMALL (NEGATIVE) Urine WBC (Auto) 16-25 (0-5) /HPF Urine RBC (Auto) 11-15 (0-2) /HPF U Epithel Cells (Auto) RARE (FEW) /HPF Urine Bacteria (Auto) RARE (NEGATIVE) /HPF Urine Mucus (Auto) SLIGHT (NEGATIVE) /HPF Urine Culture Reflexed ORDERED SEPARATELY (NO) Urine Glucose 50 (NEGATIVE) mg/dL Valproic Acid (50-100) ug/mL Monoscreen POSITIVE (Negative) Influenza Type A Ag (NEGATIVE) Influenza Type B Ag (NEGATIVE) RSV (PCR) (Negative) Group A Strep Antibody (NEGATIVE) 06/06/19 06/06/19 06/06/19 Range/Units 03:45 04:05 04:10 WBC (4.0-10.5) K/mm3 RBC (4.1-5.6) M/mm3 Hgb (12.5-18.0) gm/dl Hct (42-50) % MCV (78-100) fl MCH (26-32) pg MCHC (32-36) g/dl RDW (11.5-14.0) % Plt Count (150-450) K/mm3 MPV (6-9.5) fl Gran % (36.0-66.0) % Eos # (Auto) (0-0.5) Absolute Lymphs (auto) (1.0-4.6) Absolute Monos (auto) (0.0-1.3) Lymphocytes % (24.0-44.0) % Monocytes % (0.0-12.0) % Eosinophils % (0.00-5.0) % Basophils % (0.0-0.4) % Absolute Granulocytes (1.4-6.9) Basophils # (0-0.4) Puncture Site RIGHT BRACHIAL pCO2 57 H (35-45) mmHg pO2 73 L (75-100) mmHg Base Excess -7.2 L (-2.0-2.0) O2 Saturation 90.1 L (94-100) g/dF ABG pH 7.19 L* (7.35-7.45) ABG HCO3 21.8 L (22-28) ABG O2 Sat (Measured) 95.7 (95-100) % Geoff Test YES A-a Gradient 569 a/A Ratio 0.11 Hemoglobin 14.7 Carboxyhemoglobin 4.8 (0.0-6.9) % THgb Methemoglobin 1.1 L (1.4-1.5) % Potassium 3.5 (3.5-5.1) Temperature 37.0 C POC O2 Flow Rate 100 % Vent Mode Inspiratory BiPAP Expiratory BiPAP Sodium (137-145) mmol/L Chloride (98-107) mmol/L Carbon Dioxide (22-30) mmol/L Anion Gap (5-15) MEQ/L BUN (9-20) mg/dL Creatinine (0.66-1.25) mg/dL Estimated GFR ML/MIN Glucose (74-106) mg/dL Lactic Acid 2.6 H (0.4-2.0) Calcium (8.4-10.2) mg/dL Total Bilirubin (0.2-1.3) mg/dL AST (17-59) U/L ALT (0-50) U/L Alkaline Phosphatase (38-126) U/L Troponin I 0.060 H* (0.000-0.034) ng/mL NT-Pro-B Natriuret Pep (0-900) pg/mL Serum Total Protein (6.3-8.2) g/dL Albumin (3.5-5.0) g/dL Prealbumin (17.6-36.0) mg/dL Lipase (23-300) U/L Urine Color (YELLOW) Urine Appearance (CLEAR) Urine pH (5-6) Ur Specific [place] (1.005-1.025) Urine Protein (Negative) Urine Ketones (NEGATIVE) Urine Blood (0-5) Donis/ul Urine Nitrite (NEGATIVE) Urine Bilirubin (NEGATIVE) Urine Urobilinogen (0-1) mg/dL Ur Leukocyte Esterase (NEGATIVE) Urine WBC (Auto) (0-5) /HPF Urine RBC (Auto) (0-2) /HPF U Epithel Cells (Auto) (FEW) /HPF Urine Bacteria (Auto) (NEGATIVE) /HPF Urine Mucus (Auto) (NEGATIVE) /HPF Urine Culture Reflexed (NO) Urine Glucose (NEGATIVE) mg/dL Valproic Acid (50-100) ug/mL Monoscreen (Negative) Influenza Type A Ag (NEGATIVE) Influenza Type B Ag (NEGATIVE) RSV (PCR) (Negative) Group A Strep Antibody (NEGATIVE) 06/06/19 06/06/19 06/06/19 Range/Units 06:30 06:45 07:33 WBC (4.0-10.5) K/mm3 RBC (4.1-5.6) M/mm3 Hgb (12.5-18.0) gm/dl Hct (42-50) % MCV (78-100) fl MCH (26-32) pg MCHC (32-36) g/dl RDW (11.5-14.0) % Plt Count (150-450) K/mm3 MPV (6-9.5) fl Gran % (36.0-66.0) % Eos # (Auto) (0-0.5) Absolute Lymphs (auto) (1.0-4.6) Absolute Monos (auto) (0.0-1.3) Lymphocytes % (24.0-44.0) % Monocytes % (0.0-12.0) % Eosinophils % (0.00-5.0) % Basophils % (0.0-0.4) % Absolute Granulocytes (1.4-6.9) Basophils # (0-0.4) Puncture Site RIGHT RADIAL pCO2 46 H (35-45) mmHg pO2 81 (75-100) mmHg Base Excess -4.1 L (-2.0-2.0) O2 Saturation 94.8 (94-100) g/dF ABG pH 7.30 L (7.35-7.45) ABG HCO3 22.6 (22-28) ABG O2 Sat (Measured) 97.9 (95-100) % Geoff Test NOT APPLICABLE A-a Gradient 575 a/A Ratio 0.12 Hemoglobin 15.4 Carboxyhemoglobin 2.2 (0.0-6.9) % THgb Methemoglobin 1.1 L (1.4-1.5) % Potassium 3.6 3.5 (3.5-5.1) Temperature 37.0 C POC O2 Flow Rate 100 % Vent Mode BiPAP Inspiratory BiPAP 12 Expiratory BiPAP 6 Sodium 148 H (137-145) mmol/L Chloride 114 H (98-107) mmol/L Carbon Dioxide 23 (22-30) mmol/L Anion Gap 14.0 (5-15) MEQ/L BUN 47 H (9-20) mg/dL Creatinine 0.60 L (0.66-1.25) mg/dL Estimated GFR > 60.0 ML/MIN Glucose 130 H (74-106) mg/dL Lactic Acid (0.4-2.0) Calcium 8.0 L (8.4-10.2) mg/dL Total Bilirubin (0.2-1.3) mg/dL AST (17-59) U/L ALT (0-50) U/L Alkaline Phosphatase (38-126) U/L Troponin I 0.087 H* (0.000-0.034) ng/mL NT-Pro-B Natriuret Pep (0-900) pg/mL Serum Total Protein (6.3-8.2) g/dL Albumin (3.5-5.0) g/dL Prealbumin 13.93 L (17.6-36.0) mg/dL Lipase (23-300) U/L Urine Color (YELLOW) Urine Appearance (CLEAR) Urine pH (5-6) Ur Specific [place] (1.005-1.025) Urine Protein (Negative) Urine Ketones (NEGATIVE) Urine Blood (0-5) Donis/ul Urine Nitrite (NEGATIVE) Urine Bilirubin (NEGATIVE) Urine Urobilinogen (0-1) mg/dL Ur Leukocyte Esterase (NEGATIVE) Urine WBC (Auto) (0-5) /HPF Urine RBC (Auto) (0-2) /HPF U Epithel Cells (Auto) (FEW) /HPF Urine Bacteria (Auto) (NEGATIVE) /HPF Urine Mucus (Auto) (NEGATIVE) /HPF Urine Culture Reflexed (NO) Urine Glucose (NEGATIVE) mg/dL Valproic Acid (50-100) ug/mL Monoscreen (Negative) Influenza Type A Ag (NEGATIVE) Influenza Type B Ag (NEGATIVE) RSV (PCR) (Negative) Group A Strep Antibody (NEGATIVE) - Radiology Impressions Radiology Exams & Impressions: Radiology Procedures Category Date Time Status ABDOMEN AND PELVIS W/0 CONTRAS [CT] Stat Exams 06/06/19 00:39 Taken CHEST 1 VIEW (PORTABLE) Routine Exams 06/06/19 07:00 Completed CHEST 1 VIEW (PORTABLE) Stat Exams 06/06/19 00:26 Completed - Other Procedures and Tests Respiratory Therapy 06/06/19 02:20 Oxygen High Flow per RT 50% 06/06/19 03:00 BiPap/CPAP STAT Assessment/Plan (1) Encephalopathy Current Visit: Yes Status: Acute Assessment & Plan: Encephalopathy likely to due to sepsis and hypoxia. Patient is being treated for sepsis with IV fluids at 150 ml/hr vanc and aztreonam. Patient is on bipap for acute respiratory failure. Family does not want patient intubated. Patient is being given ativan due to work of breathing but it does have the potential to depress resp drive. Will continue to monitor oxygen saturation and continue with bipap. Will trend CBC. Prognosis was discussed with family. They wanted to patient transferred to [facility] for a second opinion. I explained to ashley that there was nothing that [facility] would do differently other than hydrate and treat with antibiotics and IV fluids and that they would be under the same constraints due to the families wishes of not intubating. Per families request I called hospitalist instrumentation designer at [facility] who felt it was not in the patient's best interest to transfer as he was too unstable and did not have a secure airway. Extreme concern that patient would go into cardiac arrest during transfer. Family was notified. Will continue with current treatment Code(s): G93.40 - ENCEPHALOPATHY, UNSPECIFIED (2) Cerebral palsy Current Visit: Yes Status: Acute Code(s): G80.9 - CEREBRAL PALSY, UNSPECIFIED (3) Unresponsive Current Visit: Yes Status: Acute Assessment & Plan: Will continue to treat sepsis pneumonia and UTI. Will continue with bipap. (4) Hypoxic Current Visit: Yes Status: Acute Assessment & Plan: Patient is on bipap. Will continue to monitor oxygen saturations and labored breathing. If patient shows signs of improvement will consider weening of bipap as tolerated Code(s): R09.02 - HYPOXEMIA (5) Mononucleosis Current Visit: Yes Status: Acute Code(s): B27.90 - INFECTIOUS MONONUCLEOSIS , UNSPECIFIED WITHOUT COMPLICATION (6) Pneumonia Current Visit: Yes Status: Acute Assessment & Plan: Patient is on vanc and aztreonam. Will continue to monitor kidney function to make sure patient can tolerate vanc. Code(s): J18.9 - PNEUMONIA, UNSPECIFIED ORGANISM (7) Sepsis Current Visit: Yes Status: Acute Assessment & Plan: Patient is tachycardic and tachypneic. He has been getting IV fluids but remains hypotensive and is unresponsive. We are holding patient's bp meds for now and have tried to resume his seizure meds at this time. Will continue to monitor vitals. Patient's prognosis is poor (8) Tachycardia Current Visit: Yes Status: Acute Assessment & Plan: Patient is receiving IV fluids and antibiotics. Patient remains tachycardic Code(s): R00.0 - TACHYCARDIA, UNSPECIFIED (9) UTI (urinary tract infection) Current Visit: Yes Status: Acute Code(s): N39.0 - URINARY TRACT INFECTION, SITE NOT SPECIFIED
[2019-06-06] MEDS ORDERED: Ativan 2 MG/1 ML VIAL IV ONE (09:09)
[2019-06-06] MEDS: Azactam 1 GM/100 ML D5W 1 GM/100 ML IVPB IV SCH ×2 (09:13→17:10)
[2019-06-06] MEDS: Depakene 250 MG/5 ML Syrup PEG SCH ×2 (09:13→21:01)
[2019-06-06] MEDS: Pepcid 20 MG VIAL IV SCH (09:14)
[2019-06-06] MEDS ORDERED: Vancomycin 1GM/ Ns 250ML*** 1 GM/250 ML IVPB IV SCH (10:00)
--- NOTE | 2019-06-06 10:09 | XRAY ---
Exam: CT of the abdomen and pelvis without IV contrast material from 06/06/2019. CTDI: 6.92 Comparison: CT of the abdomen and pelvis without IV contrast from 11/07/2018. Indication: Abdominal distention and respiratory distress, technologist states the patient was not responsive at the time of exam, bloating, nausea/vomiting. History of prior large fecal impaction. The patient has a history of prior feeding tube placement and hydrocephalus with nonfunctioning brain shunt. Healthcare facility states patient has been ill since 06/05/2019 with nausea and diarrhea, abdominal distention. Patient is challenged by cerebral palsy. Technique: Non-IV contrast axial images were obtained through the abdomen and pelvis. Reconstructed coronal and sagittal images were created and reviewed. Findings: The visualized lung bases reveal airspace disease within both posterior infrahilar projections extending into the posterior lung bases, right somewhat greater than left. This may reflect bilateral pneumonia. There is probably some some concomitant linear atelectasis as well. No posterior pleural fluid is seen. The transverse heart size appears within normal limits. Evaluation of the solid organs is limited on a non-IV contrast study only. The study is also limited, as the patient's arms are down by his side. The liver is not enlarged. I note some branching air density within the anterior aspect of both the right and left lobes of the liver as well as the inferior anterior aspect of the liver. This is new from 11/07/2018. The peripheral location would favor portal venous gas over pneumobilia, but both possibilities are in the differential diagnosis. No obvious liver mass is seen. I also see some suspicious branching air density within the posterior aspect of the right lower quadrant on axial images #31 through #37 which could represent venous gas as well. The gallbladder reveals some mild diffuse increased attenuation which could be due to milk of calcium or gravel-like stones. The gallbladder is not enlarged, nor is there gallbladder wall thickening. The spleen appears relatively small but is otherwise essentially unremarkable. No abnormality of the pancreas or adrenal glands is seen. 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 The left kidney is somewhat prominent in size and reveals at least 2 low attenuation mass lesions within the lower pole. One of these measures +0.31 Hounsfield units suggesting that it represents a cyst. The other low attenuation lesion CHANDAN is more difficult to accurately measure, but it may represent a cyst as well measuring about +9.75 Hounsfield units. I believe this is similar to 11/07/2018. No renal calculi or hydronephrosis is seen on the left. A gastrostomy tube with balloon is seen within the anterior aspect of the distal stomach. A moderate amount of fluid density is seen within the posterior dependent portion of the gastric fundus as well as the proximal duodenum. I again note a periumbilical hernia measuring about 7.4 cm in width containing a a mildly prominent small bowel loop and omental fat within it representing no significant change from 11/07/2018. Some fluid-filled mildly prominent distal small bowel is seen within the right lower quadrant containing some air-fluid levels. I see no findings of appendicitis within the right lower quadrant. Abundant bowel gas mixed with some stool is seen within the ascending colon and transverse colon. I also note some prominence of a redundant sigmoid colon loop containing some stool. I see some scattered air-fluid or air-stool levels within the colon. I believe there is some chronic rectal wall thickening with a moderate amount of stool seen within the distal rectosigmoid colon. However, this is less than that seen on 11/07/2018. No evidence of abdominal aortic aneurysm or abnormal retroperitoneal lymphadenopathy is seen. There is no free intraperitoneal air. Some vascular calcification is seen within a branch of the right iliac artery. I see no free intraperitoneal fluid. A Hernández catheter with distal balloon is seen within a collapsed urinary bladder. The seminal vesicles appears unremarkable. The prostate gland is not enlarged. No enlarged pelvic lymph nodes are seen. Small bilateral fat-containing inguinal hernias are seen, left greater than right. No bowel containing inguinal hernia is seen. There is a tiny bit of low attenuation air density seen within the left groin which could represent some minimal venous gas on axial images #79 and #80 as well as #82 and #83. The skeleton reveals bone demineralization. There is mild convexity of the lower thoracic spine toward the right and a moderate rotary convexity of the upper lumbar spine toward the left. I again see a mild anterior wedge fracture deformity of the T12 vertebral body representing no significant change. Some facet joint arthropathy is noted, most pronounced at L5-S1, left greater than right. Other mild vertebral endplate spurring is seen throughout the visualized lumbar spine. Impression: 1. The study is somewhat limited due to the patient's arms being down by his side and the fact that no IV contrast or oral contrast was given. 2. There is some suspicious peripheral branching air density within the liver, as discussed above. This is worrisome for portal venous gas. Differential diagnosis includes bowel ischemia, possibly related to obstruction or bowel inflammation. I also note minimal gas density within the posterior aspect of the right lower quadrant on axial images #31 through #37 and within femoral venous structures of the left groin, as discussed above. This could represent some venous gas. 3. Bilateral lower lobe consolidations within both infrahilar projections, right greater than left. This may be due to bilateral lower lobe pneumonia, perhaps with some concomitant atelectasis. 4. I again see a periumbilical hernia containing a mildly prominent small bowel loop representing no significant change from 11/07/2018. Mild distention of a portion of the stomach, right lower quadrant small bowel loops, and scattered distention within the colon is seen. A prominent air-fluid level is seen within the posterior dependent portion of the stomach lumen. I also see some scattered air-fluid levels within both the right lower quadrant abdominal small bowel loops and throughout the colon. There is a moderate amount of stool within the distal rectosigmoid colon with moderate bowel wall thickening suggesting some chronic impaction at this site. 5. The patient appears to have some diffuse increased attenuation within his gallbladder lumen. For example, see axial image #23. Consider milk of calcium versus tiny gravel-like gallstones. 6. Two probable cysts at the inferior pole of left kidney representing no change from 11/07/2018. 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 7. No free intraperitoneal air or free intraperitoneal fluid is seen.
[2019-06-06] MEDS: Ativan 2 MG/1 ML VIAL IV PRN ×2 (10:20→14:22)
[2019-06-06 12:48] LABS: Hematocrit 40.9 % (42-50); Hemoglobin 13.5 gm/dl (12.5-18.0); Mean Platelet Volume 11.4 fl (6-9.5); Platelet Count 132 K/mm3 (150-450); Red Blood Count 3.86 M/mm3 (4.1-5.6); Red Cell Distribution Width 13.2 % (11.5-14.0); White Blood Count 2.3 K/mm3 (4.0-10.5)
[2019-06-06] MEDS: SENOKOT 8.6 MG PEG SCH (13:11)
[2019-06-06] MEDS: Flomax 0.4 MG PEG SCH (13:11)
[2019-06-06] MEDS: Miralax Powder 17GM PACKET PEG SCH (13:11)
[2019-06-06] MEDS: Zanaflex 4 MG PEG SCH (13:11)
[2019-06-06] MEDS ORDERED: MEDICATION INTERVENTION PO SCH (13:15)
[2019-06-06] MEDS: Travatan 0.004% Opth Sol OP SCH (13:16)
[2019-06-06] MEDS: NORVASC 5 MG PEG SCH (13:17)
[2019-06-06] MEDS: Zestril 10 MG PEG SCH (13:17)
[2019-06-06] MEDS: Metamucil PACKET PEG SCH (13:54)
[2019-06-06] MEDS: Pedialyte PEG SCH ×2 (15:22→21:01)
[2019-06-06] MEDS: Motrin 100 MG/5 ML PO PRN (15:23)
[2019-06-06] MEDS ORDERED: Sodium Chloride 0.9% 500 ML 500 ML IV ONE ×2 (15:49→16:25)
[2019-06-06 18:08] LABS: ANION GAP 12.6 MEQ/L (5-15); BLOOD UREA NITROGEN 47 mg/dL (9-20); CHLORIDE 120 mmol/L (98-107); Calcium 7.4 mg/dL (8.4-10.2); Carbon Dioxide 19 mmol/L (22-30); Creatinine 1 0.81 mg/dL (0.66-1.25); Glucose 93 mg/dL (74-106); Potassium 3.3 mmol/L (3.5-5.1); SODIUM 149 mmol/L (137-145)
[2019-06-06] MEDS: VANCOMYCIN 1 GRAM/200 ML BAG 1 GM/200 ML PIGGYBACK IV SCH (19:35)
[2019-06-06] MEDS ORDERED: MELATONIN 1 MG PEG SCH (22:00)
[2019-06-07] MEDS: Azactam 1 GM/100 ML D5W 1 GM/100 ML IVPB IV SCH ×2 (00:04→08:50)
[2019-06-07] MEDS: Ativan 2 MG/1 ML VIAL IV PRN (01:13)
[2019-06-07] MEDS: Motrin 100 MG/5 ML PO PRN ×2 (03:56→09:06)
[2019-06-07 05:03] LABS: Hematocrit 42.2 % (42-50); Hemoglobin 13.5 gm/dl (12.5-18.0); Mean Cell Volume 108.5 fl (78-100); Mean Corpuscular Hemoglobin 34.7 pg (26-32); Mean Platelet Volume 11.6 fl (6-9.5); Platelet Count 108 K/mm3 (150-450); Red Blood Count 3.89 M/mm3 (4.1-5.6); Red Cell Distribution Width 13.8 % (11.5-14.0); White Blood Count 5.9 K/mm3 (4.0-10.5)
[2019-06-07 05:18] LABS: ALBUMIN 2.7 g/dL (3.5-5.0); ALKALINE PHOSPHATASE 40 U/L (38-126); ANION GAP 11.3 MEQ/L (5-15); BLOOD UREA NITROGEN 42 mg/dL (9-20); CHLORIDE 121 mmol/L (98-107); Calcium 8.1 mg/dL (8.4-10.2); Carbon Dioxide 24 mmol/L (22-30); Creatinine 1 0.65 mg/dL (0.66-1.25); Glucose 92 mg/dL (74-106); SGOT/AST 38 U/L (17-59); SGPT/ALT 20 U/L (0-50); Total Protein 5.9 g/dL (6.3-8.2)
[2019-06-07 05:23] LABS: SODIUM 152 mmol/L (137-145)
[2019-06-07] MEDS: Sodium Chloride 0.9% 1000 ML 1,000 ML IV SCH (06:34)
[2019-06-07] MEDS: Miralax Powder 17GM PACKET PEG SCH (08:50)
[2019-06-07] MEDS: Pepcid 20 MG VIAL IV SCH (08:50)
[2019-06-07] MEDS: Zanaflex 4 MG PEG SCH (08:50)
[2019-06-07] MEDS: Travatan 0.004% Opth Sol OP SCH (08:51)
[2019-06-07] MEDS: SENOKOT 8.6 MG PEG SCH (08:51)
[2019-06-07] MEDS: Flomax 0.4 MG PEG SCH (08:51)
[2019-06-07] MEDS: Metamucil PACKET PEG SCH (08:58)
[2019-06-07] MEDS: NORVASC 5 MG PEG SCH (08:58)
[2019-06-07] MEDS: Depakene 250 MG/5 ML Syrup PEG SCH (08:59)
[2019-06-07] MEDS: Pedialyte PEG SCH (09:01)
[2019-06-07] MEDS: Zestril 10 MG PEG SCH (09:02)
[2019-06-07 09:21] LABS: ATYPICAL LYMPHS 3 %; BAND 48 % (0.0-2.0); Eosinophil 2 % (0.00-3.0); Lymphocytes 15 % (24-44); Metamyelocyte 21 %; Monocyte 5 % (0.0-12.0); Myelocyte 4 %; Neutrophils 2 % (36.-66.); Platelet Estimate DECREASED (NORMAL); Total Cells Counted 100
[2019-06-07 09:22] LABS: ANISOCYTOSIS 1+; Toxic Granulation 1+
[2019-06-07] MEDS ORDERED: [UNRECOGNIZED DRUG - OTHER] G-TUBE SCH (10:00)
[2019-06-07] MEDS ORDERED: TRAVOPROST OP SCH (10:00)
[2019-06-07] MEDS ORDERED: Phenobarbital 65 MG/ML INJ. IV SCH (10:00)
[2019-06-07] MEDS ORDERED: PSYLLIUM HUSK 3.4 GM G-TUBE SCH (10:00)
[2019-06-07] MEDS ORDERED: Sodium Chloride 0.9% 1000 ML 1,000 ML IV STA ×2 (10:35→12:05)
[2019-06-07] MEDS ORDERED: PHENYLEPHRINE HCL 10 MG in Dextrose 5%/Water IV Soln. 250 ML 250 ML IV SCH (10:45)
[2019-06-07] MEDS ORDERED: Sodium Chloride 0.9% 1000 ML 1,000 ML IV SCH (12:15)
[2019-06-07] MEDS ORDERED: LEVOPHED 4 MG/4 ML 4,000 MCG in Dextrose 5%/Water IV Soln. 500 ML 500 ML IV SCH (12:15)
[2019-06-07] MEDS ORDERED: Dextrose 5% -0.45 NaCl 1000 ML 1,000 ML IV SCH (12:15)
[2019-06-07] MEDS ORDERED: PROVENTIL 2.5 MG/3 ML NEB IH SCH (13:00)
[2019-06-07] MEDS: VANCOMYCIN 1 GRAM/200 ML BAG 1 GM/200 ML PIGGYBACK IV SCH (14:16)
[2019-06-07 14:56] VITALS: BP 50/30; PULSE 43; O2SAT 57
[2019-06-08] MEDS ORDERED: TROUGH DRUG LEVELS IJ ONE (07:30)
== END 2019-06-07 14:40 | disposition expired | DRG 70 ==
LOC: ED 23:59 → ICU 06-06 04:34
PROVIDERS: ADMIT Family Medicine; ATTEND Family Medicine
DX: G93.40 Encephalopathy, unspecified (principal); A41.9 Sepsis, unspecified organism; J18.9 Pneumonia, unspecified organism; N39.0 Urinary tract infection, site not specified; B27.90 Infectious mononucleosis, unspecified without complication; R09.02 Hypoxemia; R00.0 Tachycardia, unspecified; G40.909 Epilepsy, unspecified, not intractable, without status epilepticus; R13.10 Dysphagia, unspecified; F80.2 Mixed receptive-expressive language disorder; G80.9 Cerebral palsy, unspecified; I10 Essential (primary) hypertension; Z98.2 Presence of cerebrospinal fluid drainage device; Z79.899 Other long term (current) drug therapy; Z79.82 Long term (current) use of aspirin
CPT/HCPCS: 36000; 36415; 36600; 51702; 71045; 74176; 80048; 80053; 80164; 81001; 82375; 82803; 82962; 83605; 83690; 83880; 84134; 84484; 85025; 85027; 86308; 87040; 87086; 87631; 87651; 93005; 94002; 94003; 94640; 94760; 94762; 96375; 99284; 99291; 99292; J2060; J2370; J2560; J3370; L0625; A9270-GY